=== PATIENT | male | born 1955 | race Caucasian/White ===

== ENCOUNTER → 2019-12-12 14:44 | Outpatient (BNVA) | payer SELFPAY | PROVIDERS: PCP Internal Medicine; Visit Provider Internal Medicine | DX: Z02.79 Encounter for issue of other medical certificate (principal) ==

== ENCOUNTER → 2020-12-25 14:58 | Outpatient (BNVA) | payer SELFPAY | PROVIDERS: PCP Internal Medicine; Visit Provider Physician Assistant Medical | DX: Z02.79 Encounter for issue of other medical certificate (principal) ==

== ENCOUNTER 2021-05-28 10:23 | Observation (INO) | payer OTHER, SELFPAY ==
--- NOTE | 2021-05-28 | ECG_ITS ---
Test Reason : chest pain Blood Pressure : / mmHG Vent. Rate : 067 BPM Atrial Rate : 326 BPM P-R Int : 000 ms QRS Dur : 084 ms QT Int : 408 ms P-R-T Axes : 090 -16 -02 degrees QTc Int : 431 ms Poor data quality Normal sinus rhythm Otherwise normal ECG When compared with ECG of 25-JUN-2001 20:31, No significant changes seen Referred By: Generic ED Physician Electronically Signed By:PEDRO ABERNATHY MD
--- NOTE | ~2021-05-28 | CT_ITS ---
EXAMINATION: CT ANGIOGRAM OF THE CHEST WITH AND WITHOUT CONTRAST (CT PULMONARY ANGIOGRAM FOR PE) CLINICAL INFORMATION: Reason for Exam elevated d dimer, cp COMPARISON: None TECHNIQUE: Prior to contrast administration, noncontrast localization images were obtained. Subsequently, multidetector volumetric imaging was performed from the thoracic inlet to below the diaphragms following the administration of 69 mL Omnipaque 350 intravenous contrast. No contrast reaction reported Sagittal, coronal, and MIP oblique sagittal reformatted images were obtained on the CT workstation, uploaded to PACS, and reviewed. This CT examination was performed using dose optimization techniques as appropriate, variously including the following: *Automated exposure control *Adjustment of mA and/or kV according to patient size (this includes techniques or standardized protocols for targeted exams where dose is matched to indication/reason for exam; i.e. extremities or head) *Use of iterative reconstruction technique Total exam dose-length product 282 mGy-cm FINDINGS: QUALITY OF STUDY/CONTRAST BOLUS: Satisfactory. PULMONARY ARTERIES: No central or segmental pulmonary emboli. THORACIC AORTA: No aneurysm or dissection. LUNG: No focal consolidation, nodules or masses. PLEURA: No pleural effusion or pneumothorax. MEDIASTINUM: Borderline cardiomegaly. No pericardial effusion. No hilar or mediastinal lymphadenopathy. No evidence of septal bowing or right heart strain. CHEST WALL/AXILLA: No axillary or internal mammary lymphadenopathy. OSSEOUS STRUCTURES: No acute or suspicious osseous abnormality. UPPER ABDOMEN: Unremarkable. No reflux of contrast into the hepatic veins to suggest elevated right heart pressures. CT/CT angio chest PE protocol IMPRESSION: No pulmonary embolus seen. VTE: negative
--- NOTE | ~2021-05-28 | XR_ITS ---
EXAMINATION: XR CHEST CLINICAL INFORMATION: Cough and shortness of breath COMPARISON: None TECHNIQUE: Frontal view of the chest was obtained. FINDINGS: The lungs are well expanded. There is no focal consolidation, edema, or effusion. No pneumothorax. The cardiomediastinal silhouette is within normal limits. No acute osseous abnormality. XR/XR chest 1V IMPRESSION: Clear lungs.
[2021-05-28 10:30] VITALS: BP 202/96; PULSE 73; RESP 18; TEMP 36.7; O2SAT 99; BMI 28.0
[2021-05-28 15:35] LABS: MANUAL DIFF FLAG NO
[2021-05-28 15:36] LABS: Basophils Percent Auto 0.5 % (0-2); Eosinophils Absolute Auto 0.1 X10*3/uL (0.0-0.4); Hematocrit 42.1 % (42.0-52.0); Hemoglobin 14.2 g/dl (14.0-18.0); Imm Gran Abs Auto 0.03 X10*3/uL (0.00-0.03); Imm Gran Pct Auto 0.4 % (0.0-0.4); Lymphocytes Absolute Auto 2.3 X10*3/uL (1.2-4.9); Mean Corpuscular HGB Conc 33.7 g/dl (31.0-36.0); Mean Corpuscular Volume 91.9 fL (80.0-98.0); Mean Platelet Volume 9.7 fL (9.4-12.4); Monocytes Absolute Auto 0.8 X10*3/uL (0.1-1.2); Monocytes Percent Auto 10.8 % (2-11); Neutrophils Absolute Auto 4.5 x10*3/uL (2.0-8.3); Neutrophils Percent Auto 58.3 % (45-73); Platelet Count 294 X10*3/uL (160-400); Red Blood Count 4.58 X10*6/uL (4.60-5.80); Red Cell Distribution Width 13.2 % (11.0-16.0); White Blood Count 7.8 X10*3/uL (4.8-10.8)
[2021-05-28 15:49] VITALS: BP 182/94; PULSE 71; RESP 16; TEMP 36.7; O2SAT 97
[2021-05-28 15:52] LABS: Influenza A Negative (Negative); Influenza B2 Negative (Negative)
[2021-05-28 15:55] LABS: Alanine Aminotransferase 27 U/L (0-40); Albumin Level 4.3 g/dL (3.5-5.0); Alkaline Phosphatase 93 U/L (39-117); Anion Gap 12 (12-20); Aspartate Amino Transferase 22 U/L (5-37); Bilirubin Direct 0.3 mg/dL (0.0-0.5); Bilirubin Total 0.9 mg/dL (0.0-1.0); Blood Urea Nitrogen 12 mg/dL (9-16); Calcium 9.6 mg/dL (8.4-10.2); Carbon Dioxide 26 mmol/L (22-29); Chloride 105 mmol/L (96-108); Creatinine Clr Calc Pharmacy 84.7; Estimated Glomerular Filt Rate > 60; Glucose Random 88 mg/dL (60-115); Potassium 4.5 mmol/L (3.3-5.1); Sodium 138 mmol/L (135-145); Total Protein 7.4 g/dL (6.5-8.0)
[2021-05-28 15:57] LABS: COVID-19 Test Negative (Negative); IDNOW Serial# 16C4AD1C
[2021-05-28 15:59] LABS: Troponin-I High Sensitivity 12.6 ng/L (<3.5-35.0)
[2021-05-28 16:00] LABS: B Type Natriuretic Peptide 26 pg/mL (<100)
--- NOTE | 2021-05-28 16:01 | ECG_ITS ---
Test Reason : CHEST PAIN Blood Pressure : / mmHG Vent. Rate : 064 BPM Atrial Rate : 064 BPM P-R Int : 196 ms QRS Dur : 086 ms QT Int : 416 ms P-R-T Axes : 051 -16 -05 degrees QTc Int : 429 ms Normal sinus rhythm Poor R wave progression most likely due to lead placement When compared with ECG of 28-MAY-2021 10:29, No significant changes seen Referred By: Leonie Allen Electronically Signed By:PEDOR ABERNATHY MD
[2021-05-28] MEDS: Aspirin 81 MG TAB.CHEW 324 MG PO (16:18)
--- NOTE | 2021-05-28 16:22 | ED.CHESTPAIN ---
HPI - Chest Pain General Chief Complaint: Chest Pain Stated Complaint: chest pains since wednesday Time Seen by Provider: 05/28/21 12:08 Source: patient Mode of arrival: ambulatory Limitations: no limitations History of Present Illness HPI narrative: 65 yo male with a history of hypertension here with reports of intermittent chest pain since Wednesday. Patient tells me he was out walking with his on Wednesday afternoon when he started to have some chest pressure. Patient tells me that when he rested the chest pressure got better. With the chest pressure he had fatigue and felt very tired. Patient tells me he felt well until Wednesday when he was working and he felt chest pressure again when he was lifting le[employer] material. Patient tells me since then the pain has improved but is happening more frequently. He denies any associated nausea, diaphoresis, shortness of breath. Patient does tell me that he has a dry cough but no fevers, chills, leg swelling or pain. No recent travel or sick contact. Patient denies any family history of coronary disease or blood clots. MD complaint: other (chest pressure) Onset (ago): day(s) Timing of current episode: episodic (now more constant) Prior episodes: Yes Onset: during exertion Pain location: substernal Pain radiation: none Quality: heaviness and other (pressure ) Treatment prior to arrival: none Related Data Allergies Allergy/AdvReac Type Severity Reaction Status Date / Time Unable to Assess Allergy Verified 05/28/21 12:09 Review of Systems Review of Systems: Yes all other systems are reviewed and are negative Constitutional: Constitutional: Reports no additional constitutional complaints, Denies body ache(s), Denies chills, Denies fever(s), Denies headache(s) and Denies weakness Eyes: Eyes: Reports no additional eye complaints and Denies change in vision ENT: Reports system reviewed and no additional complaints, except as documented, Denies dizziness, Denies headache(s), Denies nasal congestion, Denies nasal discharge and Denies neck pain Cardiovascular: Cardiovascular: Reports no additional cardiovascular complaints, Reports chest pain, Denies leg edema and Denies dyspnea Respiratory: Respiratory: Reports no additional respiratory complaints, Reports cough and Denies dyspnea Gastrointestinal: Gastrointestinal: Reports no additional gastrointestinal complaints, Denies abdominal pain, Denies diarrhea, Denies nausea and Denies vomiting Genitourinary: Genitourinary: Denies urinary incontinence Musculoskeletal: Musculoskeletal: Reports no additional musculoskeletal complaints, Denies back pain, Denies arthralgias, Denies joint swelling, Denies neck pain, Denies numbness and Denies tingling Integumentary/Breasts: Skin/Breast: Reports system reviewed and no additional complaints, except as docu and Denies rash Neurologic: Reports system reviewed and no additional complaints, except as documented, Denies Abnormal speech present, Denies dizziness, Denies headache(s), Denies numbness, Denies tingling and Denies weakness PMFSH Past Medical History Attestation statement: The following information was validated with the patient. Source: old records reviewed and nursing notes reviewed Medical History HTN (hypertension) Social History Social History (Updated 05/28/21 @ 16:52 by Leonie Allen NP) Alcohol intake: current Alcohol intake frequency: 0-2 drinks per day Alcohol type: beer Patient Tobacco Use Status: Never used Tobacco Use of substances other than those prescribed or required for medical reasons: No Advance Directives: No Advance Directives Information Provided: No Physical Exam Vital Signs: Vital Signs: Last Vital Signs Temp 98.1 F 05/28/21 15:49 Pulse 58 05/28/21 16:59 Resp 16 05/28/21 16:59 BP 150/80 H 05/28/21 16:59 Pulse Ox 99 05/28/21 16:59 BMI result Body Mass Index 28.0 Const: General: cooperative, healthy appearing, comfortable and no acute distress Orientation/consciousness: patient oriented x3 Limitations: no limitations HEENT: Head: Yes normal to inspection Ears: hearing grossly normal bilaterally General nose exam: Normal external nose present Face and sinus: Yes normal facial exam Mouth: Normal oral and palatal mucosa present Throat: Yes posterior oropharynx normal Eyes: General: appearance normal, both eyes and all related structures Pupils: Equal, round and reactive pupils present Neck: Neck: Yes normal visual inspection Chest: Chest palpation & inspection: normal inspection of the chest Resp: Effort & Inspection: normal respiratory effort Auscultation: clear to auscultation bilaterally Cardio: Rate: regular rate Rhythm: regular rhythm Peripheral pulses: Peripheral pulses 2+ throughout GI: Inspection: Yes normal to inspection Palpation (GI): Soft to palpation and nontender Auscultation: normal bowel sounds Back/Spine/Pelvis: Thoracic/Lumbar Spine: thoracic and lumbar spine normal to inspection Skin: General skin exam: no rashes or lesions noted Neuro: General: patient oriented x3, no focal motor deficits and normal sensation to monofilament Cranial nerves: Yes Equal, round and reactive pupils present Cognition (Neuro): normal cognition Speech: No Abnormal speech present Gait exam (Neuro): Normal gait present Motor exam (neuro): 5/5 motor strength present throughout Extrem: General: Yes normal to inspection, Yes no pedal edema and Yes no calf tenderness Course Course Course Narrative: 65 yo male here with complaints of intermittent exertional chest pain over the last few days with no associated symptoms. Will check labs, EKG, CXR, covid screen. Will give ASA, NTG Initially quite hypertensive but improved w/o intervention HEART score 3 1645-elevated d dimer. Will check CTA. Indeterminate troponin level. Plan to reassess. 1745-CTA negative for PE. Troponin will be drawn 1830. D/t exertional CP with elevated heart score will admit to medicine. Patient CP resolved at this time (did not require NTG). Call out to medicine to discuss. 1800-[id number] with Dr Rae who accepted patient. MDM - Chest Pain MDM Narrative Medical decision making narrative: Exertional chest pain acs, pe Medical Records Data Attestation: I reviewed the patient's medical records. Lab Data Attestation: I reviewed the patient's lab results. Result diagrams: 05/28/21 15:28 05/28/21 15:27 Labs: Lab Results 05/28/21 05/28/21 05/28/21 Range/Units 15:27 15:27 15:28 WBC 7.8 (4.8-10.8) X10*3/uL RBC 4.58 L (4.60-5.80) X10*6/uL Hgb 14.2 (14.0-18.0) g/dl Hct 42.1 (42.0-52.0) % MCV 91.9 (80.0-98.0) fL MCH 31.0 (27.0-33.0) pg MCHC 33.7 (31.0-36.0) g/dl RDW 13.2 (11.0-16.0) % Plt Count 294 (160-400) X10*3/uL MPV 9.7 (9.4-12.4) fL Immature Gran % (Auto) 0.4 (0.0-0.4) % Neut % (Auto) 58.3 (45-73) % Lymph % (Auto) 29.0 (20-40) % [place] % (Auto) 10.8 (2-11) % Eos % (Auto) 1.0 (0-4) % Baso % (Auto) 0.5 (0-2) % Lymph # (Auto) 2.3 (1.2-4.9) X10*3/uL [place] # (Auto) 0.8 (0.1-1.2) X10*3/uL Eos # (Auto) 0.1 (0.0-0.4) X10*3/uL Baso # (Auto) 0.0 (0.0-0.2) X10*3/uL Abs Immat Gran (auto) 0.03 (0.00-0.03) X10*3/uL Absolute Neuts (auto) 4.5 (2.0-8.3) x10*3/uL Absolute Nucleated RBC 0.000 (0.0-0.012) X10*3/uL Nucleated RBC % (auto) 0.0 (0.0-0.2) /100WBC D-Dimer High Sensitivty NG/ML Sodium 138 (135-145) mmol/L Potassium 4.5 (3.3-5.1) mmol/L Chloride 105 (96-108) mmol/L Carbon Dioxide 26 (22-29) mmol/L Anion Gap 12 (12-20) BUN 12 (9-16) mg/dL Creatinine 0.97 (0.5-1.4) mg/dL Estim Creat Clear Calc 84.7 Estimated GFR > 60 Random Glucose 88 (60-115) mg/dL Calcium 9.6 (8.4-10.2) mg/dL Total Bilirubin 0.9 (0.0-1.0) mg/dL Direct Bilirubin 0.3 (0.0-0.5) mg/dL AST 22 (5-37) U/L ALT 27 (0-40) U/L Alkaline Phosphatase 93 (39-117) U/L Troponin I High Sens 12.6 (<3.5-35.0) ng/L B-Natriuretic Peptide (<100) pg/mL Total Protein 7.4 (6.5-8.0) g/dL Albumin 4.3 (3.5-5.0) g/dL COVID-19 ([facility]TAR) (Negative) COVID-19 Clin Com Influenza Type A (ELEANOR) (Negative) Influenza Type B (ELEANOR) (Negative) Influenza A & B Note 05/28/21 05/28/21 05/28/21 Range/Units 15:28 15:28 15:28 WBC (4.8-10.8) X10*3/uL RBC (4.60-5.80) X10*6/uL Hgb (14.0-18.0) g/dl Hct (42.0-52.0) % MCV (80.0-98.0) fL MCH (27.0-33.0) pg MCHC (31.0-36.0) g/dl RDW (11.0-16.0) % Plt Count (160-400) X10*3/uL MPV (9.4-12.4) fL Immature Gran % (Auto) (0.0-0.4) % Neut % (Auto) (45-73) % Lymph % (Auto) (20-40) % [place] % (Auto) (2-11) % Eos % (Auto) (0-4) % Baso % (Auto) (0-2) % Lymph # (Auto) (1.2-4.9) X10*3/uL [place] # (Auto) (0.1-1.2) X10*3/uL Eos # (Auto) (0.0-0.4) X10*3/uL Baso # (Auto) (0.0-0.2) X10*3/uL Abs Immat Gran (auto) (0.00-0.03) X10*3/uL Absolute Neuts (auto) (2.0-8.3) x10*3/uL Absolute Nucleated RBC (0.0-0.012) X10*3/uL Nucleated RBC % (auto) (0.0-0.2) /100WBC D-Dimer High Sensitivty NG/ML Sodium (135-145) mmol/L Potassium (3.3-5.1) mmol/L Chloride (96-108) mmol/L Carbon Dioxide (22-29) mmol/L Anion Gap (12-20) BUN (9-16) mg/dL Creatinine (0.5-1.4) mg/dL Estim Creat Clear Calc Estimated GFR Random Glucose (60-115) mg/dL Calcium (8.4-10.2) mg/dL Total Bilirubin (0.0-1.0) mg/dL Direct Bilirubin (0.0-0.5) mg/dL AST (5-37) U/L ALT (0-40) U/L Alkaline Phosphatase (39-117) U/L Troponin I High Sens (<3.5-35.0) ng/L B-Natriuretic Peptide 26 (<100) pg/mL Total Protein (6.5-8.0) g/dL Albumin (3.5-5.0) g/dL COVID-19 ([facility]TAR) Negative (Negative) COVID-19 Clin Com See Note Influenza Type A (ELEANOR) Negative (Negative) Influenza Type B (ELEANOR) Negative (Negative) Influenza A & B Note See Note 05/28/21 Range/Units 16:12 WBC (4.8-10.8) X10*3/uL RBC (4.60-5.80) X10*6/uL Hgb (14.0-18.0) g/dl Hct (42.0-52.0) % MCV (80.0-98.0) fL MCH (27.0-33.0) pg MCHC (31.0-36.0) g/dl RDW (11.0-16.0) % Plt Count (160-400) X10*3/uL MPV (9.4-12.4) fL Immature Gran % (Auto) (0.0-0.4) % Neut % (Auto) (45-73) % Lymph % (Auto) (20-40) % [place] % (Auto) (2-11) % Eos % (Auto) (0-4) % Baso % (Auto) (0-2) % Lymph # (Auto) (1.2-4.9) X10*3/uL [place] # (Auto) (0.1-1.2) X10*3/uL Eos # (Auto) (0.0-0.4) X10*3/uL Baso # (Auto) (0.0-0.2) X10*3/uL Abs Immat Gran (auto) (0.00-0.03) X10*3/uL Absolute Neuts (auto) (2.0-8.3) x10*3/uL Absolute Nucleated RBC (0.0-0.012) X10*3/uL Nucleated RBC % (auto) (0.0-0.2) /100WBC D-Dimer High Sensitivty 196 NG/ML Sodium (135-145) mmol/L Potassium (3.3-5.1) mmol/L Chloride (96-108) mmol/L Carbon Dioxide (22-29) mmol/L Anion Gap (12-20) BUN (9-16) mg/dL Creatinine (0.5-1.4) mg/dL Estim Creat Clear Calc Estimated GFR Random Glucose (60-115) mg/dL Calcium (8.4-10.2) mg/dL Total Bilirubin (0.0-1.0) mg/dL Direct Bilirubin (0.0-0.5) mg/dL AST (5-37) U/L ALT (0-40) U/L Alkaline Phosphatase (39-117) U/L Troponin I High Sens (<3.5-35.0) ng/L B-Natriuretic Peptide (<100) pg/mL Total Protein (6.5-8.0) g/dL Albumin (3.5-5.0) g/dL COVID-19 ([facility]TAR) (Negative) COVID-19 Clin Com Influenza Type A (ELEANOR) (Negative) Influenza Type B (ELEANOR) (Negative) Influenza A & B Note Imaging Data Chest x-ray: Attestation: I personally reviewed and interpreted this imaging study as follows: Radiologist's impression: EXAMINATION: XR CHEST CLINICAL INFORMATION: Cough and shortness of breath COMPARISON: None TECHNIQUE: Frontal view of the chest was obtained. FINDINGS: The lungs are well expanded. There is no focal consolidation, edema, or effusion. No pneumothorax. The cardiomediastinal silhouette is within normal limits. No acute osseous abnormality. XR/XR chest 1V IMPRESSION: Clear lungs. ? CT scan - chest: Attestation: I personally reviewed and interpreted this imaging study as follows: Radiologist's impression: FINDINGS: QUALITY OF STUDY/CONTRAST BOLUS: Satisfactory. PULMONARY ARTERIES: No central or segmental pulmonary emboli.? THORACIC AORTA: No aneurysm or dissection. LUNG: No focal consolidation, nodules or masses. PLEURA: No pleural effusion or pneumothorax. MEDIASTINUM: Borderline cardiomegaly. No pericardial effusion. No hilar or mediastinal lymphadenopathy.? No evidence of septal bowing or right heart strain. CHEST WALL/AXILLA: No axillary or internal mammary lymphadenopathy. OSSEOUS STRUCTURES: No acute or suspicious osseous abnormality.? UPPER ABDOMEN: Unremarkable.? No reflux of contrast into the hepatic veins to suggest elevated right heart pressures. CT/CT angio chest PE protocol IMPRESSION: No pulmonary embolus seen. ? VTE: negative ECG Data ECG #1: Attestation: I personally reviewed and interpreted this ECG as follows: ECG interpretation date: 05/28/21 ECG interpretation time: 16:17 Interpretation: Normal sinus rhythm with a rate of 64, normal AL, normal QRS, normal QT Discharge Plan Discharge Clinical Impression: Chest pain Patient Disposition: Admitted As Inpatient
[2021-05-28 16:26] LABS: D Dimer High Sensitivity 196 NG/ML
[2021-05-28 16:59] VITALS: BP 150/80; PULSE 58; RESP 16; O2SAT 99
[2021-05-28] MEDS: iohexoL 350 MG/ML 100 ML INFUS..BTL IV (17:17)
--- NOTE | 2021-05-28 18:10 | PHA.MEDREC ---
Pharmacy Consult ? Medication Reconciliation Pharmacy has completed the medication reconciliation.
[2021-05-28 18:48] LABS: Troponin-I High Sensitivity 13.7 ng/L (<3.5-35.0)
--- NOTE | 2021-05-28 19:02 | PM.IMHP ---
History of Present Illness Date of Service: 05/28/21 Chief Complaint: Exertional chest pain 65-year-old male with significant past medical history for hypertension alone on amlodipine and no significant past medical history for cardiac disease presents with exertional chest pain worsening over the last week. He clearly describes walking short distance developing retrosternal chest pain that resolved with rest. This was approximately 3 days ago. 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 Today he had a similar episode with exertion and felt it was time to seek attention. In the emergency room initial workup was unremarkable including troponin EKG and chest. At this point in time he will be admitted for further workup and rule out protocol Review of Systems Review of Systems: Admits to exertional chest pain Denies shortness of breath Denies nausea vomiting diarrhea PMFSH Medical History HTN (hypertension) Social History Alcohol intake: current Alcohol intake frequency: 0-2 drinks per day Alcohol type: beer Patient Tobacco Use Status: Never used Tobacco Use of substances other than those prescribed or required for medical reasons: No Advance Directives: No Advance Directives Information Provided: No Meds Allergies Allergy/AdvReac Type Severity Reaction Status Date / Time Unable to Assess Allergy Verified 05/28/21 12:09 Active Medications: Current Medications Enoxaparin Sodium (Enoxaparin Sodium 40 Mg/0.4 Ml Syringe) 40 mg SUBCUT Q24H WOO Nitroglycerin (Nitroglycerin 0.4 Mg Tab.Subl) 0.4 mg SUBLINGUAL [id number] PRN PRN Reason: Chest Pain Pharmacy Consult (Consult Rx Perform Med Rec) 1 each MISCELLANE ONCE PRN PRN Reason: Consult order Sodium Chloride (0.9 % Sodium Chloride Flush 3 Ml Syringe) 3 ml IVFLUSH QSHIFT [facility] Home Medications Medication Instructions Recorded Confirmed Last Taken Type amlodipine 5 mg tablet 5 mg PO DAILY 05/28/21 05/28/21 05/28/21 History Physical Exam Vital Signs and Narrative: Vital Signs: Last Vital Signs Temp 98.1 F 05/28/21 15:49 Pulse 58 05/28/21 16:59 Resp 16 05/28/21 16:59 BP 150/80 H 05/28/21 16:59 Pulse Ox 99 05/28/21 16:59 BMI result Body Mass Index 28.0 Const: Other: Awake alert oriented x3 no acute distress Resp: Other: Clear to auscultation bilateral. No rales rhonchi or wheezes Cardio: Other: No S4; positive S1-S2; no S3 murmurs rubs or gallops GI: Other: Soft nontender nondistended normoactive bowel sounds Extrem: Other: No edema bilaterally Results Labs CBC and Chem 7: 05/28/21 15:28 05/28/21 15:27 Labs: Laboratory Results - last 24 hr 05/28/21 05/28/21 05/28/21 15:27 15:27 15:28 MCV 91.9 MCH 31.0 MCHC 33.7 RDW 13.2 Plt Count 294 MPV 9.7 Immature Gran % (Auto) 0.4 Neut % (Auto) 58.3 Lymph % (Auto) 29.0 [place] % (Auto) 10.8 Eos % (Auto) 1.0 Baso % (Auto) 0.5 Lymph # (Auto) 2.3 [place] # (Auto) 0.8 Eos # (Auto) 0.1 Baso # (Auto) 0.0 Abs Immat Gran (auto) 0.03 Absolute Neuts (auto) 4.5 Absolute Nucleated RBC 0.000 Nucleated RBC % (auto) 0.0 D-Dimer High Sensitivty Anion Gap 12 Estim Creat Clear Calc 84.7 Estimated GFR > 60 Random Glucose 88 Calcium 9.6 Total Bilirubin 0.9 Direct Bilirubin 0.3 AST 22 ALT 27 Alkaline Phosphatase 93 Troponin I High Sens 12.6 B-Natriuretic Peptide Total Protein 7.4 Albumin 4.3 COVID-19 ([facility]TAR) COVID-19 Clin Com Influenza Type A (ELEANOR) Influenza Type B (ELEANOR) Influenza A & B Note 05/28/21 05/28/21 05/28/21 15:28 15:28 15:28 MCV MCH MCHC RDW Plt Count MPV Immature Gran % (Auto) Neut % (Auto) Lymph % (Auto) [place] % (Auto) Eos % (Auto) Baso % (Auto) Lymph # (Auto) [place] # (Auto) Eos # (Auto) Baso # (Auto) Abs Immat Gran (auto) Absolute Neuts (auto) Absolute Nucleated RBC Nucleated RBC % (auto) D-Dimer High Sensitivty Anion Gap Estim Creat Clear Calc Estimated GFR Random Glucose Calcium Total Bilirubin Direct Bilirubin AST ALT Alkaline Phosphatase Troponin I High Sens B-Natriuretic Peptide 26 Total Protein Albumin COVID-19 (AVTAR) Negative COVID-19 Clin Com See Note Influenza Type A (ELEANOR) Negative Influenza Type B (ELEANOR) Negative Influenza A & B Note See Note 05/28/21 05/28/21 16:12 18:22 MCV MCH MCHC RDW Plt Count MPV Immature Gran % (Auto) Neut % (Auto) Lymph % (Auto) [place] % (Auto) Eos % (Auto) Baso % (Auto) Lymph # (Auto) [place] # (Auto) Eos # (Auto) Baso # (Auto) Abs Immat Gran (auto) Absolute Neuts (auto) Absolute Nucleated RBC Nucleated RBC % (auto) D-Dimer High Sensitivty 196 Anion Gap Estim Creat Clear Calc Estimated GFR Random Glucose Calcium Total Bilirubin Direct Bilirubin AST ALT Alkaline Phosphatase Troponin I High Sens 13.7 B-Natriuretic Peptide Total Protein Albumin COVID-19 (AVTAR) COVID-19 Clin Com Influenza Type A (ELEANOR) Influenza Type B (ELEANOR) Influenza A & B Note Imaging Radiologist's Impressions: Impressions Chest X-Ray 05/28/21 12:30 IMPRESSION: Clear lungs. Chest CTA 05/28/21 17:21 IMPRESSION: No pulmonary embolus seen. VTE: negative Assessment and Plan (1) Chest pain: Status: Acute (2) Hypertension: Status: Acute Plan 65-year-old male presents with exertional chest pain in the back drop of high known hypertension. His risk factors are hypertension as he does not smoke drinks moderately and has no family history of coronary artery disease. 1. Exertional chest pain -admit to telemetry to rule out protocol -2D echo in the morning -cardiology consult -trend troponins 2. Hypertension -continue amlodipine -adjust as indicated -follow renals/divalents Full Code Lovenox A will likely require for 1-2 midnights for cardiac workup; future stay dictated by clinical results Quality Stroke Does the patient have a stroke diagnosis?: No VTE Prior VTE?: No VTE Risk Level:: Medical - moderate - high VTE Device Contraindication: Treatment Not Indicated VTE Drug Contraindication: N/A - Med Ordered
[2021-05-28 20:14] VITALS: BP 128/74; PULSE 57; RESP 18; TEMP 36.7; O2SAT 97
[2021-05-28] MEDS: Enoxaparin Sodium 40 MG/0.4 ML SYRINGE SUBCUT (20:40)
[2021-05-28 22:00] VITALS: BP 144/74; PULSE 55; RESP 16; TEMP 36.8; O2SAT 98
--- NOTE | 2021-05-28 22:56 | MHC.CM.PN ---
REYES 05/28. A&Ox3. HCP completed. HCP/ Shean Ta ([phone]). Vet. [facility]. PCP [facility]. [facility] in [place]. Vax x2 Pfizer. Boosted/Moderna. Employed. Lives with . No DME/services. D/C plan: Home without services. Transportation by . CM to follow for d/c needs.
[2021-05-28] MEDS: 0.9 % Sodium Chloride Flush 3 ML SYRINGE IVFLUSH (23:57)
--- NOTE | 2021-05-29 | CA_ITS ---
Acquisition Time: 2021-05-29 09:21:41 Total Exercise Time: 00:04:54 Test Indications: Chest Pain Medications: AMLODIPINE Protocol: SUDARSHAN Max HR: 150 BPM 95% of Pred: 157 BPM Max BP: 160/090 mmHG Max Work Load: 6.8 METS Exercise stress test with exercise 4 min 54 sec, achieving 89% MPHR, with 8/10 mid chest pain with moderate shortness of breath, without arrythmia, with normotensive response to exercise, with nonspecific ST findings at baseline, with [address] depression in V2 , aVL at 14 sec of recovery, then at 3 min recovery there is downsloping ST segements starting inferiorly and V3-V6 which becomes more prominent before finally returnng back to baseline. His chest discomfort gradually improved and resolved with rest. Test reviewed with Dr Masterson Referred By: Addy Masterson Overread By: YUDITH SUAREZ
[2021-05-29 00:11] VITALS: BP 145/89; PULSE 56; RESP 12; TEMP 36.6; O2SAT 97
[2021-05-29 02:12] VITALS: BP 135/77; PULSE 55; RESP 14; O2SAT 97
[2021-05-29 06:37] VITALS: BP 136/78; PULSE 50; RESP 12; O2SAT 98
[2021-05-29 07:05] LABS: MANUAL DIFF FLAG NO
[2021-05-29 07:07] LABS: Basophils Absolute Auto 0.1 X10*3/uL (0.0-0.2); Basophils Percent Auto 0.8 % (0-2); Eosinophils Absolute Auto 0.1 X10*3/uL (0.0-0.4); Eosinophils Percent Auto 1.3 % (0-4); Hematocrit 40.3 % (42.0-52.0); Hemoglobin 13.9 g/dl (14.0-18.0); Imm Gran Abs Auto 0.02 X10*3/uL (0.00-0.03); Imm Gran Pct Auto 0.3 % (0.0-0.4); Lymphocytes Absolute Auto 1.7 X10*3/uL (1.2-4.9); Lymphocytes Percent Auto 27.7 % (20-40); Mean Corpuscular HGB Conc 34.5 g/dl (31.0-36.0); Mean Corpuscular Volume 92.9 fL (80.0-98.0); Mean Platelet Volume 9.6 fL (9.4-12.4); Monocytes Absolute Auto 0.8 X10*3/uL (0.1-1.2); Monocytes Percent Auto 13.1 % (2-11); Neutrophils Absolute Auto 3.5 x10*3/uL (2.0-8.3); Neutrophils Percent Auto 56.8 % (45-73); Platelet Count 269 X10*3/uL (160-400); Red Blood Count 4.34 X10*6/uL (4.60-5.80); Red Cell Distribution Width 13.2 % (11.0-16.0); White Blood Count 6.2 X10*3/uL (4.8-10.8)
[2021-05-29 07:18] VITALS: BP 166/80; PULSE 57; RESP 12; TEMP 37; O2SAT 100
[2021-05-29 07:31] LABS: Alanine Aminotransferase 21 U/L (0-40); Albumin Level 3.9 g/dL (3.5-5.0); Alkaline Phosphatase 83 U/L (39-117); Anion Gap 12 (12-20); Aspartate Amino Transferase 19 U/L (5-37); Blood Urea Nitrogen 14 mg/dL (9-16); Calcium 9.2 mg/dL (8.4-10.2); Carbon Dioxide 25 mmol/L (22-29); Chloride 105 mmol/L (96-108); Creatinine Clr Calc Pharmacy 79.8; Estimated Glomerular Filt Rate > 60; Glucose Fasting 87 mg/dL (60-99); Potassium 4.2 mmol/L (3.3-5.1); Sodium 138 mmol/L (135-145); Total Protein 6.7 g/dL (6.5-8.0)
--- NOTE | 2021-05-29 07:34 | PC.NURSE ---
denies all sx. states he wants to go home because its too loud in the ed and too hard to sleep. nsr on ryne. skin pwd.
[2021-05-29 07:37] LABS: Troponin-I High Sensitivity 10.2 ng/L (<3.5-35.0)
--- NOTE | 2021-05-29 08:59 | PM.CNCAR ---
History of Present Illness History of Present Illness Date of Service: 05/29/21 Requesting physician: Micky Bruce Chief complaint: Chest Pain Narrative: I was consulted to see the patient today for symptoms of exertional chest pain. He is a pleasant and very active 65-year-old male who works in labor intensive job with prior history of hypertension on amlodipine 5 mg. Generally blood pressure at home is borderline controlled as per him. However not generally an issue. He goes out for walks with his without any issues. On Wednesday he went out to walk to the [facility] and when he walked 1 length he felt tired. He felt that this was due to may be over work. Following that on Wednesday he went to work and was loading a truck and felt retrosternal chest pressure associated with weakness in his legs. There was no diaphoresis, shortness of breath, lightheadedness, syncope. He then went into the office and rested and the symptoms resolved within 15 minutes. He then went on to work on Wednesday but no exertional activity was done on that day. On Wednesday again he was loading the truck and he felt that similar chest pressure but much more intense in severity associated weakness and shaking of his arms. He was very concerned and came to the emergency room. Initial EKG was negative. He said he was then in the waiting room for few hours and subsequently was seen after few hours and was given aspirin after an hour of aspirin his symptoms resolved. However the most intense symptoms lasted for about 45 minutes. His serial EKGs are negative. His troponins are flat Review of Systems Constitutional: Constitutional: Reports no additional constitutional complaints Eyes: Eyes: Reports no additional eye complaints Cardiovascular: Cardiovascular: Reports chest pain with activity Respiratory: Respiratory: Reports no additional respiratory complaints Gastrointestinal: Gastrointestinal: Reports no additional gastrointestinal complaints Genitourinary: Genitourinary: Reports no additional male genitourinary complaints Musculoskeletal: Musculoskeletal: Reports no additional musculoskeletal complaints Integumentary/Breasts: Skin/Breast: Reports system reviewed and no additional complaints, except as docu Neurologic: Reports system reviewed and no additional complaints, except as documented Psychiatric: Psychiatric: Reports no additional psychiatric complaints Endocrine: Endocrine: Reports no additional endocrine complaints Hematologic/Lymphatic: Hematologic/Lymphatic: Reports no additional hematologic/lymphatic complaints Allergic/Immunologic: Allergic/Immunologic: Reports no additional allergic/immunologic complaints [facility] Past Medical History Medical History HTN (hypertension) Social History Social History Alcohol intake: current Alcohol intake frequency: 0-2 drinks per day Alcohol type: beer Patient Tobacco Use Status: Never used Tobacco Use of substances other than those prescribed or required for medical reasons: No Advance Directives: Yes Advance Directives Information Provided: No Advance Directives on File: Yes Advance Directives Date on File: 05/29/21 service: Yes Current occupational status: employed Meds Allergies Allergy/AdvReac Type Severity Reaction Status Date / Time Unable to Assess Allergy Verified 05/28/21 12:09 Active Medications: Current Medications Amlodipine Besylate (Amlodipine Besylate 5 Mg Tablet) 5 mg PO DAILY [facility]; Protocol Enoxaparin Sodium (Enoxaparin Sodium 40 Mg/0.4 Ml Syringe) 40 mg SUBCUT Q24H [facility] Last Admin: 05/28/21 20:40 Dose: 40 mg Documented by: Nitroglycerin (Nitroglycerin 0.4 Mg Tab.Subl) 0.4 mg SUBLINGUAL [id number] PRN PRN Reason: Chest Pain Pharmacy Consult (Consult Rx Perform Med Rec) 1 each MISCELLANE ONCE PRN PRN Reason: Consult order Sodium Chloride (0.9 % Sodium Chloride Flush 3 Ml Syringe) 3 ml IVFLUSH QSHIFT [facility] Last Admin: 05/28/21 23:57 Dose: 3 ml Documented by: Home Medications Medication Instructions Recorded Confirmed Last Taken Type amlodipine 5 mg tablet 5 mg PO DAILY 05/28/21 05/28/21 05/28/21 History Physical Exam Vital Signs: Vital Signs: Last Vital Signs Temp 98.6 F 05/29/21 07:18 Pulse 57 05/29/21 07:18 Resp 12 05/29/21 07:18 BP 166/80 H 05/29/21 07:18 Pulse Ox 100 05/29/21 07:18 BMI result Body Mass Index 28.0 Const: General: cooperative, comfortable, no acute distress, well developed, alert, awake and anxious Nutritional Appearance: average body habitus and well nourished Orientation/consciousness: patient oriented x3 Limitations: no limitations HEENT: Head: Yes normocephalic and Yes atraumatic Neck: Neck: Yes trachea midline, Yes supple and Yes no JVD Chest: Chest palpation & inspection: normal inspection of the chest Resp: Effort & Inspection: normal respiratory effort Auscultation: clear to auscultation bilaterally Cardio: Jugular venous distension: no JVD Palpation: normal PMI Rate: regular rate Rhythm: regular rhythm Heart sounds: S1 normal heart sound present, S2 normal heart sound present, no click, no gallops and no murmurs GI: Auscultation: normal bowel sounds Skin: General skin exam: no rashes or lesions noted Neuro: General: patient oriented x3 and no focal motor deficits Extrem: General: Yes no clubbing, cyanosis or edema Psych: Appearance: grossly normal Affect: Anxious affect present Objective Labs and Meds Result diagrams: 05/29/21 06:58 05/29/21 06:58 Lab results: Laboratory Results - last 24 hr 05/28/21 05/28/21 05/28/21 15:27 15:27 15:28 WBC 7.8 RBC 4.58 L Hgb 14.2 Hct 42.1 MCV 91.9 MCH 31.0 MCHC 33.7 RDW 13.2 Plt Count 294 MPV 9.7 Immature Gran % (Auto) 0.4 Neut % (Auto) 58.3 Lymph % (Auto) 29.0 [place] % (Auto) 10.8 Eos % (Auto) 1.0 Baso % (Auto) 0.5 Lymph # (Auto) 2.3 [place] # (Auto) 0.8 Eos # (Auto) 0.1 Baso # (Auto) 0.0 Abs Immat Gran (auto) 0.03 Absolute Neuts (auto) 4.5 Absolute Nucleated RBC 0.000 Nucleated RBC % (auto) 0.0 D-Dimer High Sensitivty Sodium 138 Potassium 4.5 Chloride 105 Carbon Dioxide 26 Anion Gap 12 BUN 12 Creatinine 0.97 Estim Creat Clear Calc 84.7 Estimated GFR > 60 Random Glucose 88 Fasting Glucose Calcium 9.6 Total Bilirubin 0.9 Direct Bilirubin 0.3 AST 22 ALT 27 Alkaline Phosphatase 93 Troponin I High Sens 12.6 B-Natriuretic Peptide Total Protein 7.4 Albumin 4.3 COVID-19 (AVTAR) COVID-19 Clin Com Influenza Type A (ELEANOR) Influenza Type B (ELEANOR) Influenza A & B Note 05/28/21 05/28/21 05/28/21 15:28 15:28 15:28 WBC RBC Hgb Hct MCV MCH MCHC RDW Plt Count MPV Immature Gran % (Auto) Neut % (Auto) Lymph % (Auto) [place] % (Auto) Eos % (Auto) Baso % (Auto) Lymph # (Auto) [place] # (Auto) Eos # (Auto) Baso # (Auto) Abs Immat Gran (auto) Absolute Neuts (auto) Absolute Nucleated RBC Nucleated RBC % (auto) D-Dimer High Sensitivty Sodium Potassium Chloride Carbon Dioxide Anion Gap BUN Creatinine Estim Creat Clear Calc Estimated GFR Random Glucose Fasting Glucose Calcium Total Bilirubin Direct Bilirubin AST ALT Alkaline Phosphatase Troponin I High Sens B-Natriuretic Peptide 26 Total Protein Albumin COVID-19 (AVTAR) Negative COVID-19 Clin Com See Note Influenza Type A (ELEANOR) Negative Influenza Type B (ELEANOR) Negative Influenza A & B Note See Note 05/28/21 05/28/21 05/29/21 16:12 18:22 06:58 WBC 6.2 RBC 4.34 L Hgb 13.9 L Hct 40.3 L MCV 92.9 MCH 32.0 MCHC 34.5 RDW 13.2 Plt Count 269 MPV 9.6 Immature Gran % (Auto) 0.3 Neut % (Auto) 56.8 Lymph % (Auto) 27.7 [place] % (Auto) 13.1 H Eos % (Auto) 1.3 Baso % (Auto) 0.8 Lymph # (Auto) 1.7 [place] # (Auto) 0.8 Eos # (Auto) 0.1 Baso # (Auto) 0.1 Abs Immat Gran (auto) 0.02 Absolute Neuts (auto) 3.5 Absolute Nucleated RBC 0.000 Nucleated RBC % (auto) 0.0 D-Dimer High Sensitivty 196 Sodium Potassium Chloride Carbon Dioxide Anion Gap BUN Creatinine Estim Creat Clear Calc Estimated GFR Random Glucose Fasting Glucose Calcium Total Bilirubin Direct Bilirubin AST ALT Alkaline Phosphatase Troponin I High Sens 13.7 B-Natriuretic Peptide Total Protein Albumin COVID-19 (AVTAR) COVID-19 Clin Com Influenza Type A (ELEANOR) Influenza Type B (ELEANOR) Influenza A & B Note 05/29/21 05/29/21 06:58 06:58 WBC RBC Hgb Hct MCV MCH MCHC RDW Plt Count MPV Immature Gran % (Auto) Neut % (Auto) Lymph % (Auto) [place] % (Auto) Eos % (Auto) Baso % (Auto) Lymph # (Auto) [place] # (Auto) Eos # (Auto) Baso # (Auto) Abs Immat Gran (auto) Absolute Neuts (auto) Absolute Nucleated RBC Nucleated RBC % (auto) D-Dimer High Sensitivty Sodium 138 Potassium 4.2 Chloride 105 Carbon Dioxide 25 Anion Gap 12 BUN 14 Creatinine 1.03 Estim Creat Clear Calc 79.8 Estimated GFR > 60 Random Glucose Fasting Glucose 87 Calcium 9.2 Total Bilirubin 1.0 Direct Bilirubin AST 19 ALT 21 Alkaline Phosphatase 83 Troponin I High Sens 10.2 B-Natriuretic Peptide Total Protein 6.7 Albumin 3.9 COVID-19 (AVTAR) COVID-19 Clin Com Influenza Type A (ELEANOR) Influenza Type B (ELEANOR) Influenza A & B Note Imaging Radiologist's impression: Impressions Chest X-Ray 05/28/21 12:30 IMPRESSION: Clear lungs. Chest CTA 05/28/21 17:21 IMPRESSION: No pulmonary embolus seen. VTE: negative Assessment and Plan (1) Exertional chest pain: Status: Acute recent onset exertional chest pain in middle-aged man with prior risk factor of hypertension with borderline uncontrolled blood pressure at this point in time. He has negative EKG and negative troponin that makes him low risk for acute coronary syndrome. Also symptoms he is still very prolonged with negative troponins which makes obstructive CAD low likelihood although his symptoms are very concerning and will suggest him to undergo treadmill stress test today. This stress test is negative, likelihood of obstructive coronary artery disease extremely low. Would suggest him then aggressive control blood pressure and up titration of his amlodipine to 10 mg daily. Advised him closely to monitor his blood pressure at home. The stress test is positive will require cardiac catheterization. This was discussed with him in details. He understands and agrees. Procedures Date of Service Date of Service: 05/29/21
--- NOTE | 2021-05-29 10:09 | PM.EVENT ---
Event Note Date of Service: 05/29/21 Event Note: Patient underwent stress test which was abnormal, developed significant chest pain at 5 minutes into exercise and had EKG changes suggestive ischemia and recovery. No significant hypertensive blood pressure response. Will need cardiac catheterization. Was discussed with patient before and will make arrangement. Start aspirin, high-intensity statin therapy and metoprolol. Would hold off on IV heparin unless he develops recurrent chest pain.
[2021-05-29 10:30] VITALS: BP 161/88; PULSE 65; RESP 18; TEMP 36.9; O2SAT 95
[2021-05-29] MEDS: amLODIPine Besylate 5 MG TABLET PO (10:31)
--- NOTE | 2021-05-29 10:37 | PC.NURSE ---
Pt reports that he had CP during exertion during stress test. Is glad he didn't leave. NSR on monitor. no complaints at this time. skin pwd. unlabroed resp.
--- NOTE | 2021-05-29 11:21 | MHC.CM.PN ---
Received notification from Dr Rae that patient will be transferred to [facility] for cardiac cath. Continue to monitor for d/c needs.
[2021-05-29 11:30] VITALS: BP 122/74; PULSE 60; RESP 18; O2SAT 96
--- NOTE | 2021-05-29 11:31 | PC.NURSE ---
Pt denies CP, skin pwd. aware of plan for transfer [place] [facility]. awaits details of when.
[2021-05-29] MEDS: Metoprolol Tartrate 25 MG TABLET PO (11:40)
[2021-05-29] MEDS: Atorvastatin Calcium 80 MG TABLET PO (11:40)
[2021-05-29] MEDS: Aspirin Enteric Coated 81 MG TABLET.DR PO (11:41)
--- NOTE | 2021-05-29 12:06 | P.DS_ITS ---
DS: Providers Provider Date of Service: 05/29/21 Date of admission: 05/28/21 18:02 Date of discharge: 05/29/21 Primary care physician: MARCE Walton Consults: 05/28/21 19:00 Consult to Cardiology Routine Consulting Provider: Addy Masterson Reason for consultation: Exertional CP DS: Diagnosis Discharge Diagnosis (1) Exertional chest pain: Status: Acute DS: Summary Hospital Course Hospital Course: 65-year-old male with medical history significant for poorly controlled hypertension presents with multiple episodes of exertional chest pain over the last 2 weeks. He adequately describes walking short distance and developing retrosternal chest pain without radiation or associated symptoms; this pain resolved with 15-20 minutes of rest. Duration of his pain he notes 15-20 minutes. This scenario repeated itself multiple times and on the day of admission he was encouraged by his to seek treatment. On admission, initial troponin was flat and EKG was without significant changes. Risk factors were assessed; no family history of cardiac disease nonsmoker; social drinker no illicit drug use. Only risk factor remains poorly controlled hypertension. On 05/29/2021 patient underwent ETT and developed chest pain after 5 minutes. During recovery he developed more pronounced lateral ST T wave changes. He was seen by Cardiology; decision was made to transfer to [facility] for cardiac catheterization. Aside from stress test, he has been pain free. He has been started on low-dose aspirin, high-dose statin, beta-alisha. In the absence of pain at rest, he will not be started on heparin unless status changes. At this point in time he is medically acceptable for transfer to [facility] for catheterization. All his questions were answered with his Time Spent with Patient Time attestation: Total time spent providing and/or coordinating discharge services: Discharge coordination time: Greater than 30 minutes Quality: Safe Use of Opioids Does Pt have an Active Cancer Diagnosis on the Problem List?: No Quality: Stroke Does the patient have a stroke diagnosis?: No Physical Exam Vital Signs: Vital Signs: Last Vital Signs Temp 98.5 F 05/29/21 10:30 Pulse 60 05/29/21 11:30 Resp 18 05/29/21 11:30 BP 122/74 05/29/21 11:30 Pulse Ox 96 05/29/21 11:30 BMI result Body Mass Index 28.0 Const: Other: Awake alert oriented x3 no acute distress Resp: Other: Clear to auscultation bilateral. No rales rhonchi or wheezes Cardio: Other: No S4; positive S1-S2; no S3 murmurs rubs or gallops GI: Other: Soft nontender nondistended normoactive bowel sounds Extrem: Other: No edema bilaterally DS: Data Data Completed and Pending Labs on day of discharge: Laboratory Results - last 24 hr 05/28/21 05/28/21 05/28/21 15:27 15:27 15:28 WBC 7.8 RBC 4.58 L Hgb 14.2 Hct 42.1 MCV 91.9 MCH 31.0 MCHC 33.7 RDW 13.2 Plt Count 294 MPV 9.7 Immature Gran % (Auto) 0.4 Neut % (Auto) 58.3 Lymph % (Auto) 29.0 [place] % (Auto) 10.8 Eos % (Auto) 1.0 Baso % (Auto) 0.5 Lymph # (Auto) 2.3 [place] # (Auto) 0.8 Eos # (Auto) 0.1 Baso # (Auto) 0.0 Abs Immat Gran (auto) 0.03 Absolute Neuts (auto) 4.5 Absolute Nucleated RBC 0.000 Nucleated RBC % (auto) 0.0 D-Dimer High Sensitivty Sodium 138 Potassium 4.5 Chloride 105 Carbon Dioxide 26 Anion Gap 12 BUN 12 Creatinine 0.97 Estim Creat Clear Calc 84.7 Estimated GFR > 60 Random Glucose 88 Fasting Glucose Calcium 9.6 Total Bilirubin 0.9 Direct Bilirubin 0.3 AST 22 ALT 27 Alkaline Phosphatase 93 Troponin I High Sens 12.6 B-Natriuretic Peptide Total Protein 7.4 Albumin 4.3 COVID-19 (AVTAR) COVID-19 Clin Com Influenza Type A (ELEANOR) Influenza Type B (ELEANOR) Influenza A & B Note 05/28/21 05/28/21 05/28/21 15:28 15:28 15:28 WBC RBC Hgb Hct MCV MCH MCHC RDW Plt Count MPV Immature Gran % (Auto) Neut % (Auto) Lymph % (Auto) [place] % (Auto) Eos % (Auto) Baso % (Auto) Lymph # (Auto) [place] # (Auto) Eos # (Auto) Baso # (Auto) Abs Immat Gran (auto) Absolute Neuts (auto) Absolute Nucleated RBC Nucleated RBC % (auto) D-Dimer High Sensitivty Sodium Potassium Chloride Carbon Dioxide Anion Gap BUN Creatinine Estim Creat Clear Calc Estimated GFR Random Glucose Fasting Glucose Calcium Total Bilirubin Direct Bilirubin AST ALT Alkaline Phosphatase Troponin I High Sens B-Natriuretic Peptide 26 Total Protein Albumin COVID-19 (AVTAR) Negative COVID-19 Clin Com See Note Influenza Type A (ELEANOR) Negative Influenza Type B (ELEANOR) Negative Influenza A & B Note See Note 05/28/21 05/28/21 05/29/21 16:12 18:22 06:58 WBC 6.2 RBC 4.34 L Hgb 13.9 L Hct 40.3 L MCV 92.9 MCH 32.0 MCHC 34.5 RDW 13.2 Plt Count 269 MPV 9.6 Immature Gran % (Auto) 0.3 Neut % (Auto) 56.8 Lymph % (Auto) 27.7 [place] % (Auto) 13.1 H Eos % (Auto) 1.3 Baso % (Auto) 0.8 Lymph # (Auto) 1.7 [place] # (Auto) 0.8 Eos # (Auto) 0.1 Baso # (Auto) 0.1 Abs Immat Gran (auto) 0.02 Absolute Neuts (auto) 3.5 Absolute Nucleated RBC 0.000 Nucleated RBC % (auto) 0.0 D-Dimer High Sensitivty 196 Sodium Potassium Chloride Carbon Dioxide Anion Gap BUN Creatinine Estim Creat Clear Calc Estimated GFR Random Glucose Fasting Glucose Calcium Total Bilirubin Direct Bilirubin AST ALT Alkaline Phosphatase Troponin I High Sens 13.7 B-Natriuretic Peptide Total Protein Albumin COVID-19 (AVTAR) COVID-19 Clin Com Influenza Type A (ELEANOR) Influenza Type B (ELEANOR) Influenza A & B Note 05/29/21 05/29/21 06:58 06:58 WBC RBC Hgb Hct MCV MCH MCHC RDW Plt Count MPV Immature Gran % (Auto) Neut % (Auto) Lymph % (Auto) [place] % (Auto) Eos % (Auto) Baso % (Auto) Lymph # (Auto) [place] # (Auto) Eos # (Auto) Baso # (Auto) Abs Immat Gran (auto) Absolute Neuts (auto) Absolute Nucleated RBC Nucleated RBC % (auto) D-Dimer High Sensitivty Sodium 138 Potassium 4.2 Chloride 105 Carbon Dioxide 25 Anion Gap 12 BUN 14 Creatinine 1.03 Estim Creat Clear Calc 79.8 Estimated GFR > 60 Random Glucose Fasting Glucose 87 Calcium 9.2 Total Bilirubin 1.0 Direct Bilirubin AST 19 ALT 21 Alkaline Phosphatase 83 Troponin I High Sens 10.2 B-Natriuretic Peptide Total Protein 6.7 Albumin 3.9 COVID-19 (AVTAR) COVID-19 Clin Com Influenza Type A (ELEANOR) Influenza Type B (ELEANOR) Influenza A & B Note Discharge Plan Discharge Patient Disposition: er Acute Care Hospital Discharge Diagnosis: Exertional chest pain Referrals: [facility] [Outside] - 1 Week Seun Lamb PA [Primary Care Provider] - 1 Week Discharge Medications: New atorvastatin 80 mg Tablet 80 mg PO DAILY Qty: 30 0RF aspirin 81 mg Tablet,Delayed Release (Dr/Ec) 81 mg PO DAILY Qty: 30 0RF metoprolol tartrate 25 mg Tablet 25 mg PO BID Qty: 60 0RF Protocol: Hold for SBP/HR < HOLD for SBP < : 90 HOLD for HR < : 60 Continued amlodipine 5 mg Tablet 5 mg PO DAILY 0RF Discharge Orders: Discharge Order (Routine); Ordered 05/29/21 Ordered By: Vinayak Rae Diet: advance to usual diet Activity on Discharge: As tolerated Stand Alone Forms: Patient Portal Discharge page Care Plan Goals: Transfer to [facility] for cardiac catheterization Health Concerns: As per receiving facility Plan of Treatment: Cardiac catheterization at [facility] Assessment: See discharge summary Patient Instructions: Chest Pain (DC)
--- NOTE | 2021-05-29 12:19 | PC.NURSE ---
CALL PLACED @ THIS TIME TO [facility] PT TX LINE TO CHECK ON ROOM ASSIGNMENT ARTURO ANSWERS AND CONFIRMS WE ARE STILL WAITING FOR ROOM ASSIGNMENT
--- NOTE | 2021-05-29 13:38 | PC.NURSE ---
@ 4534 CALL RECEIVED FROM [facility] [place] [facility] TX LINE WITH ROOM ASSIGNMENT MASS [employer] 7 ROOM 3 RN TO RN [phone]
== END 2021-05-30 09:08 | disposition short-term general hospital (02) ==
LOC: HO.ED 17:57 → HO.EDOVER 18:15
PROVIDERS: Emergency Medicine; Nurse Practitioner Family; Admitting Provider Hospitalist; Emergency Provider Emergency Medicine Emergency Medical Services; PCP Physician Assistant; Visit Provider Hospitalist
DX: R07.9 Chest pain, unspecified (principal); I10 Essential (primary) hypertension; R05.9 Cough, unspecified; R06.02 Shortness of breath; R79.89 Other specified abnormal findings of blood chemistry; Z20.822 Contact with and (suspected) exposure to COVID-19; Z79.899 Other long term (current) drug therapy
CPT/HCPCS: 36415; 71045; 71275; 80048; 80053; 80076; 83880; 84484; 85025; 85379; 87502; 87635; 93005; 93017; 96372; 99219; 99285; J1650; Q9967

== ENCOUNTER → 2021-06-11 14:05 | Outpatient (BNVA) | payer OTHER, SELFPAY | PROVIDERS: PCP Physician Assistant; Visit Provider Internal Medicine Cardiovascular Disease | DX: I25.10 Atherosclerotic heart disease of native coronary artery without angina pectoris (principal); I10 Essential (primary) hypertension; Z79.899 Other long term (current) drug therapy | CPT/HCPCS: 99212 ==

== ENCOUNTER → 2021-07-11 13:07 | Outpatient (REF) | payer OTHER, SELFPAY ==
--- NOTE | 2021-07-11 13:12 | CA_ITS ---
Transthoracic Echocardiogram Patient (Last, First, Middle): Raymond Ta, Gender: Male Date of : 1955 Age: 65 Procedure Date: 07/11/2021 Procedure Type: Transthoracic Echocardiogram Location: OP Height: 175.26 cm Weight: 82.56 kg BSA: 1.98 m2 Heart Rate: bpm BP: 130 / 80 mmHg Manager Sterile: VH/TO Referring MD: Addy Masterson MD Symptoms: I25.10 - Atherosclerotic heart disease of [place] coronary... Study Quality: Fair ECG Rhythm: Sinus Conclusions: - The left ventricular systolic function is normal. The calculated ejection fraction is 57% by biplane method. - Long,Linear, relatively homogeneous,, freely mobile mass arising from the interatrial septum seen in the left atrium. 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 - No obvious valvular pathology seen on this study. - Consider EVAN/cMRI for further evaluation. Findings Left Ventricle Normal left ventricular cavity size. There is normal left ventricular wall thickness. The left ventricular systolic function is normal. The calculated ejection fraction is 57% by biplane method. There is no evidence of regional wall motion abnormalities. Diastolic function is normal for age. Right Ventricle Normal right ventricular cavity size and systolic function. Atria Both atria are normal in size. Long,Linear, relatively homogeneous,, freely mobile mass arising from the interatrial septum seen in the left atrium. 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 Aortic Valve The aortic valve was not well visualized. There is no aortic valve stenosis. There is trace (trivial) aortic valve regurgitation. Mitral Valve The mitral valve appears normal. There is trace mitral valve regurgitation. There is no mitral valve stenosis. Pulmonic Valve The pulmonic valve was not well visualized. Tricuspid Valve There is trace tricuspid valve regurgitation. The pulmonary artery systolic pressure is normal. Great Vessels The asc aorta is normal in size. Venous The inferior vena cava is normal in size and collapses greater than 50% with inspiration. Pericardium/Pleural There is no evidence of pericardial effusion. Prior Study Comparison No prior study available for comparison. Recommendations, Care & Conclusions No obvious valvular pathology seen on this study. Measurements 2D Linear Measurements IVSd: 0.91 0.6-0.9/0.6-1.0 cm LVIDd: 4.92 3.9-5.3/4.2-5.9 cm LVIDd Index: 2.48 2.4-3.2/2.2-3.1 cm/m2 LVIDs: 3.09 2.0-3.6 cm LVPWd: 0.95 0.7-1.1 cm Ao Root: 3.30 2.1-3.5 cm LA Diam: 3.70 2.7-3.8/3.0-4.0 cm LAIDs Index: 1.87 1.5-2.3 cm/m2 LV Mass: 200.99 67-162/88-224 g LV Mass Index: 101.51 43-95/49-115 g/m2 LVOT Diam: 2.20 3.0+(-)1.3 cm 2D Systolic Function EF 4C: 58.70 >55% EF 2C: 58.10 >55% EF BiP: 56.70 >55% Mitral Valve MV Pk E: 0.81 MV PK A: 0.60 MV Decel Time: 181.00 E/A: 1.30 E'Lateral: 8.81 E'Medial: 7.72 E/E' Med: 10.50 E/E' Lat: 9.20 PHT: 53.00 MVA PHT: 4.15 Decel Nelson: 4.49 Aortic Valve AoV Pk Christophe: 1.53 AoV Mn Christophe: 1.00 AoV VTI: 0.37 AoV Pk Grad: 9.00 Aov Mn Grad: 5.00 BENNY Cont.VTI: 2.47 LVOT LVOT Pk Christophe: 0.97 LVOT Mn Christophe: 0.62 LVOT VTI: 0.24 LVOT Pk Grad: 4.00 LVOT Mn Grad: 2.00 LVOT Diam: 2.20 LVOT Area: 3.80 Diastolic Function MV Pk E: 0.81 MV Pk A: 0.60 E/A: 1.30 E'Medial: 7.72 E/E' Med: 10.50 E' Laterial: 8.81 E/E' Lat: 9.20 Right Ventricle TAPSE (mm): 21.70 TVS' Christophe: 9.79 Tricuspid Valve TR Pk Christophe: 2.27 TR Pk Grad: 21.00 RA Press: 3.00 RVSP: 25.00 Great Vessels Aorta Ao Root-2D: 3.30 2.0-3.7 cm Sinus of Valsalva: 3.30 2.0-3.5 cm Ao Asc: 3.70 2.1-3.4 cm Ao Arch: 3.50 Pulmonary Valve PV Pk Christophe: 1.11 Peak PV Grad: 5.00 Updated in Other Vendor System with Status of Final Dinesh Anaya MD electronically signed on 07/11/2021 3:51:15 PM with status of Final
== END ==
LOC: HO.CARD 13:07
PROVIDERS: PCP Physician Assistant; Visit Provider Internal Medicine Cardiovascular Disease
DX: I25.10 Atherosclerotic heart disease of native coronary artery without angina pectoris (principal)
CPT/HCPCS: 93306

== ENCOUNTER 2021-07-16 13:22 | Day surgery (SDC) | payer OTHER, SELFPAY ==
[2021-06-23 13:27] VITALS: BP 136/70; BMI 27.8
--- NOTE | 2021-07-15 09:52 | HO.ANESPROP2 ---
Documented by User: Unique Luther NP 07/15/21 09:57 HPI - Anesthesia Eval Consult details Narrative: 65yo M for Transesophageal Echocardiogram CAD s/p JOE to mid RCA 05/30/21 [facility] Active Problems Active Problems: All Active Problems (Updated 06/11/21 @ 14:49 by Addy Masterson MD) CAD (coronary artery disease) (Acute) Exertional chest pain (Acute) Hypertension (Acute) Past Medical History Medical History CAD (coronary artery disease) HTN (hypertension) Surgical History Surgical History Stented coronary artery Social History Social History Alcohol intake: current Alcohol intake frequency: 0-2 drinks per day Alcohol type: beer Patient Tobacco Use Status: Never used Tobacco Use of substances other than those prescribed or required for medical reasons: No Are you DNR?: No Advance Directives: No Advance Directives Information Provided: Yes Advance Directives Date on File: 05/29/21 service: Yes Current occupational status: employed Meds Allergies Allergy/AdvReac Type Severity Reaction Status Date / Time Unable to Assess Allergy Verified 05/28/21 12:09 Home Medications Medication Instructions Recorded Confirmed Last Taken Type nitroglycerin 0.4 mg sublingual mg SUBLINGUAL 06/11/21 06/11/21 Unknown History tablet Exam Exam Date and Time: July 15, 2021 0952 Pertinent Lab Results Pertinent Lab Results: Laboratory Tests 05/29/21 05/29/21 06:58 06:58 WBC 6.2 Hgb 13.9 L Hct 40.3 L Plt Count 269 Sodium 138 Potassium 4.2 Chloride 105 Carbon Dioxide 25 BUN 14 Creatinine 1.03 Narrative Narrative: ECHO 06/2021 Conclusions: - The left ventricular systolic function is normal.? The ? calculated ejection fraction is 57% by biplane method. ? - Long,Linear, relatively homogeneous,, freely mobile mass ? ? ? arising from the interatrial septum seen in the left atrium. ? ? Probable myxoma, based on site of origin and appearance (3.1 x ? 0.8-1 cm). ? - No obvious valvular pathology seen on this study.? - Consider EVAN/cMRI for further evaluation.? ? Exercise Stress 05/2021 (prior to JOE) Protocol: SUDARSHAN ? Max HR: 150 BPM? 95% of? Pred: 157 BPM Max BP: 160/090 mmHG Max Work Load: 6.8 METS ? Exercise stress test with exercise 4 min 54 sec, achieving 89% MPHR, with 8/10 ?mid chest pain with moderate shortness of breath, without arrythmia, with ?normotensive response to exercise, with nonspecific ST findings at baseline, ?with [address] depression in V2 , aVL at 14 sec of recovery, then at 3 ?min recovery there is downsloping ST segements starting inferiorly and V3-V6 ?which becomes more prominent before finally returnng back to baseline. His ?chest discomfort gradually improved and resolved with rest. Test reviewed with ?Dr Masterson Assessment and Plan Assessment Anesthesia Assessment: Chart Reviewed Documented by User: Arian Love MD 07/16/21 14:37 [facility] Past Medical History Medical History CAD (coronary artery disease) HTN (hypertension) Family History Family history of problems with anesthesia: No Surgical History Surgical History Stented coronary artery History of Problems with Anesthesia: No Social History Social History Alcohol intake: current Alcohol intake frequency: 0-2 drinks per day Alcohol type: beer Patient Tobacco Use Status: Never used Tobacco Use of substances other than those prescribed or required for medical reasons: No Are you DNR?: No Advance Directives: No Advance Directives Information Provided: Yes Advance Directives Date on File: 05/29/21 service: Yes Current occupational status: employed Meds Allergies Allergy/AdvReac Type Severity Reaction Status Date / Time Unable to Assess Allergy Verified 05/28/21 12:09 Home Medications Medication Instructions Recorded Confirmed Last Taken Type nitroglycerin 0.4 mg sublingual mg SUBLINGUAL 06/11/21 06/11/21 Unknown History tablet Exam Airway Mallampati Class: II TM Dist: >3cm Neck ROM: Full Loose/Missing/Broken Teeth: No Heart: irreg irreg s1s2 Lungs: cta b/l Assessment and Plan Assessment Anesthesia Assessment: Anesthesia Plan Discussed Final Anesthetic Review Family History of Problems with Anesthesia: No History of Problems with Anesthesia: No NPO: Yes ASA Class: III Final Preanesthetic Review: No Changes in Pt Med Stat, Meds/Allgs Chart Reviewed, Consent Obtained/Reviewed and Anes Risks/Benef Reviewed Patient Risk: Intermediate Procedure Risk: Intermediate Assessment/Block/Sedation in SS: Assess/Block/Sedation-SS Anesthetic Plan Anesthetic Plan: MAC: and Agree w/ Assess. and Plan Disposition: Standard PACU
[2021-07-16 10:14] VITALS: BMI 28.2
--- NOTE | 2021-07-16 13:30 | MHC.SHP ---
Pre-Procedural Eval Section A Date of Service: 07/16/21 The patient is an INPATIENT: No Changes since office visit: Yes Patient answered all questions; No Cold of Flu in the past 2 weeks, No New Medical Problems and No Changes in Medication Section B Chief Complaint: atrial mass Allergies: Allergies Allergy/AdvReac Type Severity Reaction Status Date / Time Unable to Assess Allergy Verified 05/28/21 12:09 Plan I have reviewed the history and physical and performed a pertinent physical examination on my patient. No changes have occurred unless specified.
[2021-07-16 13:31] VITALS: BMI 27.0
[2021-07-16 13:51] VITALS: BP 133/73; PULSE 47; RESP 18; TEMP 36.7; O2SAT 98
[2021-07-16] MEDS: Lactated Ringers 1,000 ML 100 ML IVCONT (14:24)
--- NOTE | 2021-07-16 15:00 | CA_ITS ---
Transesophageal Echocardiogram Patient (Last, First, Middle): Raymond Ta, Gender: Male Date of : 1955 Age: 65 Procedure Date: 07/16/2021 Procedure Type: Transesophageal Echocardiogram Location: OP Height: 175.26 cm Weight: 83.01 kg BSA: 1.99 m2 Heart Rate: bpm Ballroom Dance Instructor: DONTAE Sahu MD: Addy Masterson MD Automation And Controls Instructor: Addy Masterson MD Symptoms: Left atrial mass Conclusion: ??? 1. 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 Normal LV systolic function with normal diastolic function 3. Cardiac valvular Doppler within normal limits 4. No intracardiac shunting 5. Normal pericardium 6. No significant atherosclerosis in the aorta Findings Procedure Information Consent was obtained prior to the procedure. Pre EVAN oral cavity was checked and revealed no overcrowding. The adult 3D probe was passed with no difficulty. Left Ventricle Normal left ventricular size, thickness, and systolic function. The visually estimated ejection fraction is between 55-60%. There is no evidence of regional wall motion abnormalities. Spectral Doppler is indicative of a normal filling pattern. There is no evidence of a thrombus in the left ventricle. Right Ventricle Normal right ventricular cavity size and systolic function. Atria Both atria are normal in size. There is a mobile atrial septum noted. There is no evidence of interatrial shunt. There is no evidence of a patent foramen ovale. The left atrial appendage was identified in multiple views. There is no smoke or clot formation with the left atrial appendage. The left upper, right upper and right lower pulmonary vein drain normally into the left atrium. There is a mobile, pedunculated, irregular, multi lobular, solid mass attached to the fossa ovalis, measuring 2.8 x 1 cm, most consistent with left atrial myxoma. There is no evidence of thrombus or mass in the right atrium. the IVC and SVC drain normally into the right atrium. The right atrial appendage is identified without any clear thrombi within it. Aortic Valve Normal aortic valve structure and function. There is no aortic valve stenosis. There is trace (trivial) aortic valve regurgitation. Mitral Valve Normal mitral valve structure and function. There is trace mitral valve regurgitation. There is no mitral valve stenosis. Pulmonic Valve The pulmonic valve is likely normal. Tricuspid Valve Normal tricuspid valve structure. There is trace tricuspid valve regurgitation. Great Vessels All visible segments of the aorta are normal in size. The pulmonary artery was not well visualized. Venous The inferior vena cava is normal in size and collapses greater than 50% with inspiration. Pericardium/Pleural There is no evidence of pericardial effusion. Measurements Mitral Valve MV Pk E: 0.56 MV PK A: 0.45 MV Decel Time: 243.00 E/A: 1.20 E'Lateral: 12.20 E'Medial: 6.48 E/E' Med: 8.60 E/E' Lat: 4.60 PHT: 71.00 MVA PHT: 3.10 Decel [place]: 2.28 Diastolic Function MV Pk E: 0.56 MV Pk A: 0.45 E/A: 1.20 E'Medial: 6.48 E/E' Med: 8.60 E' Laterial: 12.20 E/E' Lat: 4.60 Updated by Addy Masterson on 04:11 PM with Status of Final Addy Masterson MD electronically signed on 07/16/2021 4:11:58 PM with status of Final
[2021-07-16 15:44] VITALS: BP 122/80; PULSE 59; RESP 18; TEMP 36.3; O2SAT 99
[2021-07-16 15:59] VITALS: BP 139/79; PULSE 48; RESP 18; O2SAT 98
[2021-07-16 16:14] VITALS: BP 143/81; PULSE 48; RESP 18; TEMP 36.3; O2SAT 98
== END 2021-07-16 16:32 | disposition home or self-care (01) ==
PROVIDERS: PCP Physician Assistant; Visit Provider Internal Medicine Cardiovascular Disease
PROC: (CPT 93312; principal; 2021-07-16 15:00)
DX: I31.8 Other specified diseases of pericardium (principal); I25.10 Atherosclerotic heart disease of native coronary artery without angina pectoris; Z98.61 Coronary angioplasty status; I10 Essential (primary) hypertension; Z79.82 Long term (current) use of aspirin; Z79.899 Other long term (current) drug therapy
CPT/HCPCS: 93312; Q9957

== ENCOUNTER 2021-07-24 06:13 | Outpatient (REF) | payer OTHER, SELFPAY ==
[2021-06-23 13:27] VITALS: BP 136/70
[2021-07-22 08:31] VITALS: BP 116/60; BMI 27.8
[2021-07-24 07:46] LABS: Anion Gap 11 (12-20); Blood Urea Nitrogen 12 mg/dL (9-16); Calcium 9.2 mg/dL (8.4-10.2); Carbon Dioxide 23 mmol/L (22-29); Chloride 110 mmol/L (96-108); Cholesterol 98 mg/dL; Estimated Glomerular Filt Rate > 60; Glucose Random 99 mg/dL (60-115); HDL Cholesterol 30 mg/dL; LDL Cholesterol Calculated 58 mg/dl; Potassium 4.1 mmol/L (3.3-5.1); Sodium 140 mmol/L (135-145); Triglycerides 52 mg/dL
== END 2021-07-24 06:14 | disposition home or self-care (01) ==
LOC: HO.LAB 06:13
PROVIDERS: PCP Physician Assistant; Visit Provider Internal Medicine Cardiovascular Disease
DX: I25.10 Atherosclerotic heart disease of native coronary artery without angina pectoris (principal)
CPT/HCPCS: 36415; 80048; 80061

== ENCOUNTER 2021-07-25 10:10 | Outpatient (REF) | payer OTHER, SELFPAY ==
[2021-06-23 13:27] VITALS: BP 136/70
[2021-07-22 08:31] VITALS: BP 116/60; BMI 27.8
[2021-07-25 11:19] LABS: Mean Corpuscular HGB Conc 33.3 g/dl (31.0-36.0); Mean Corpuscular Hemoglobin 31.6 pg (27.0-33.0); Mean Corpuscular Volume 94.9 fL (80.0-98.0); Mean Platelet Volume 10.2 fL (9.4-12.4); Platelet Count 300 X10*3/uL (160-400); Red Blood Count 4.11 X10*6/uL (4.60-5.80); White Blood Count 6.3 X10*3/uL (4.8-10.8)
[2021-07-25 11:24] LABS: INTERNATIONAL NORM RATIO 1.1 (0.9-1.1); Prothrombin Time 12.4 SEC (9.9-13.0)
== END 2021-07-25 10:11 | disposition home or self-care (01) ==
LOC: HO.LAB 10:10
PROVIDERS: PCP Physician Assistant; Visit Provider Internal Medicine Cardiovascular Disease
DX: I25.10 Atherosclerotic heart disease of native coronary artery without angina pectoris (principal); R07.9 Chest pain, unspecified; I10 Essential (primary) hypertension
CPT/HCPCS: 36415; 85027; 85610

== ENCOUNTER → 2021-08-21 15:27 | Outpatient (BNVA) | payer OTHER, SELFPAY ==
[2021-07-29 08:48] VITALS: BP 116/60; BMI 27.8
== END ==
PROVIDERS: PCP Physician Assistant; Visit Provider Internal Medicine Cardiovascular Disease
DX: I25.10 Atherosclerotic heart disease of native coronary artery without angina pectoris (principal); I97.89 Other postprocedural complications and disorders of the circulatory system, not elsewhere classified; I48.91 Unspecified atrial fibrillation; Z86.018 Personal history of other benign neoplasm; Z95.2 Presence of prosthetic heart valve
CPT/HCPCS: 99212

== ENCOUNTER → 2021-08-28 11:02 | Outpatient (REF) | payer OTHER, SELFPAY ==
[2021-07-29 08:48] VITALS: BP 116/60; BMI 27.8
--- NOTE | 2021-08-28 11:08 | HM_ITS ---
Conclusion: 1. Patient was monitored for total period of 3 days and 4 hours 2. Baseline was normal sinus rhythm with average heart of 72 beats per minute 3. No sustained atrial fibrillation noted 4. Very rare ectopy noted 5. No patient reported events MTDD
== END ==
LOC: HO.CARD 11:02
PROVIDERS: PCP Physician Assistant; Visit Provider Internal Medicine Cardiovascular Disease
DX: I48.91 Unspecified atrial fibrillation (principal); I97.89 Other postprocedural complications and disorders of the circulatory system, not elsewhere classified
CPT/HCPCS: 93242

== ENCOUNTER → 2021-09-04 11:13 | Outpatient (REF) | payer OTHER, SELFPAY ==
[2021-07-29 08:48] VITALS: BP 116/60; BMI 27.8
--- NOTE | 2021-09-04 11:15 | CA_ITS ---
Transthoracic Echocardiogram Patient (Last, First, Middle): Raymond Ta, Gender: Male Date of : 1955 Age: 65 Procedure Date: 09/04/2021 Procedure Type: Transthoracic Echocardiogram Location: OP Height: 175.26 cm Weight: 79.38 kg BSA: 1.95 m2 Heart Rate: bpm BP: 124 / 78 mmHg Monotype Mechanic: HORTENCIA Referring MD: Addy Masterson MD Other Sports Official: Addy Masterson MD Symptoms: D15.1 - Benign neoplasm of heart, s/p Surgery Study Quality: Fair/Contrast ECG Rhythm: Sinus Conclusions: - Essentially normal study Findings Procedure Information Contrast agent, definity, is being given per protocol without apparent complications. Left Ventricle Normal left ventricular size, thickness, and systolic function. The visually estimated ejection fraction is between 60-65%. There is paradoxical septal motion consistent with post-operative status. Spectral Doppler is indicative of an impaired relaxation filling pattern. Right Ventricle Normal right ventricular cavity size and systolic function. Atria The left atrium is normal in size. Interatrial shunt cannot be excluded. The right atrium is normal in size. Aortic Valve The aortic valve structure and function is likely normal. There is no aortic valve stenosis. There is no aortic valve regurgitation. Mitral Valve Likely normal mitral valve structure and function. There is trace mitral valve regurgitation. There is no mitral valve stenosis. Pulmonic Valve The pulmonic valve was not well visualized. Tricuspid Valve Likely normal tricuspid valve structure and function. Tricuspid regurgitation envelope is inadequate for calculation of right ventricular systolic pressure. Great Vessels All visible segments of the aorta are normal in size. The pulmonary artery was not well visualized. Venous The inferior vena cava is normal in size and collapses greater than 50% with inspiration. Pericardium/Pleural There is no evidence of pericardial effusion. Prior Study Comparison Changes noted compared to prior study dated: 07/16/2021. left atrial mass is not noted Measurements 2D Linear Measurements IVSd: 1.10 0.6-0.9/0.6-1.0 cm LVIDd: 4.56 3.9-5.3/4.2-5.9 cm LVIDd Index: 2.34 2.4-3.2/2.2-3.1 cm/m2 LVIDs: 3.17 2.0-3.6 cm LVPWd: 1.08 0.7-1.1 cm LA Diam: 3.40 2.7-3.8/3.0-4.0 cm LAIDs Index: 1.74 1.5-2.3 cm/m2 LV Mass: 219.82 67-162/88-224 g LV Mass Index: 112.73 43-95/49-115 g/m2 LVOT Diam: 2.00 3.0+(-)1.3 cm 2D Systolic Function EF 4C: 64.40 >55% EF 2C: 63.40 >55% EF BiP: 64.60 >55% Mitral Valve MV Pk E: 0.56 MV PK A: 0.50 MV Decel Time: 260.00 E/A: 1.10 E'Lateral: 12.80 E'Medial: 9.25 E/E' Med: 6.10 E/E' Lat: 4.40 PHT: 76.00 MVA PHT: 2.89 Decel [place]: 2.16 Aortic Valve AoV Pk Christophe: 1.11 AoV Mn Christophe: 0.79 AoV VTI: 0.19 AoV Pk Grad: 5.00 Aov Mn Grad: 3.00 BENNY Cont.VTI: 2.71 LVOT LVOT Pk Christophe: 1.00 LVOT Mn Christophe: 0.74 LVOT VTI: 0.16 LVOT Pk Grad: 4.00 LVOT Mn Grad: 2.00 LVOT Diam: 2.00 LVOT Area: 3.14 Diastolic Function MV Pk E: 0.56 MV Pk A: 0.50 E/A: 1.10 E'Medial: 9.25 E/E' Med: 6.10 E' Laterial: 12.80 E/E' Lat: 4.40 Right Ventricle TAPSE (mm): 16.10 TVS' Christophe: 8.05 Tricuspid Valve RA Press: 3.00 Great Vessels Aorta Sinus of Valsalva: 3.51 2.0-3.[address] [place]: 3.28 1.7-3.4 cm Ao Asc: 3.80 2.1-3.4 cm Updated in Other Vendor System with Status of Final Addy Masterson MD electronically signed on 09/04/2021 2:28:45 PM with status of Final
== END ==
LOC: HO.CARD 11:13
PROVIDERS: PCP Physician Assistant; Visit Provider Internal Medicine Cardiovascular Disease
DX: D15.1 Benign neoplasm of heart (principal)
CPT/HCPCS: 93306; Q9957

== ENCOUNTER → 2021-11-13 15:08 | Outpatient (BNVA) | payer OTHER, SELFPAY ==
[2021-09-17 11:30] VITALS: BP 118/70; BP 120/70
[2021-11-10 07:57] VITALS: BP 134/78; BMI 27.0
== END ==
PROVIDERS: PCP Physician Assistant; Visit Provider Internal Medicine Cardiovascular Disease
DX: I25.10 Atherosclerotic heart disease of native coronary artery without angina pectoris (principal); D15.1 Benign neoplasm of heart; I97.89 Other postprocedural complications and disorders of the circulatory system, not elsewhere classified; I48.91 Unspecified atrial fibrillation
CPT/HCPCS: 93005; 99212

== ENCOUNTER → 2022-05-05 15:07 | Outpatient (BNVA) | payer OTHER, SELFPAY ==
[2022-01-01 06:57] VITALS: BP 128/68; BP 136/74; BMI 27.2
== END ==
PROVIDERS: PCP Physician Assistant; Referring Provider Physician Assistant; Visit Provider Internal Medicine Cardiovascular Disease
DX: I25.10 Atherosclerotic heart disease of native coronary artery without angina pectoris (principal); D15.1 Benign neoplasm of heart; Z79.82 Long term (current) use of aspirin
CPT/HCPCS: 99212

== ENCOUNTER → 2022-08-26 14:54 | Outpatient (REF) | payer OTHER, SELFPAY ==
[2022-01-01 06:57] VITALS: BP 128/68; BP 136/74; BMI 27.2
== END ==
LOC: HO.CARD 14:54
PROVIDERS: PCP Physician Assistant; Visit Provider Internal Medicine Cardiovascular Disease
DX: D15.1 Benign neoplasm of heart (principal)
CPT/HCPCS: 93306; Q9957

== ENCOUNTER 2022-11-16 15:26 | Outpatient (AMB) | payer OTHER, SELFPAY ==
[2022-01-01 06:57] VITALS: BP 128/68; BP 136/74; BMI 27.2
[2022-11-16 15:28] VITALS: BP 160/90; PULSE 56; BMI 29.3
--- NOTE | 2022-11-16 15:28 | A.OFFVIS_ITS ---
Intake Vital Signs 11/16/22 15:28 Height 5 ft 9 in Weight 198 lb 6.656 oz BMI 29.3 BP 160/90 H Blood Pressure Location Lt brachial Position Sitting Pulse 56 Intake Visit Reasons: 6 mth f/up echo Intake Note: 6 month follow-up after echo with ekg c/o pain in left chest mostly at night Continuous Drier Operator Required: No Monorail Operator: Monorail Operator Present Accompanied by: Spouse Allergies Unable to Assess Allergy (Verified 05/28/21 12:09) Medication List - Last Reconciled 11/16/22 by Addy Masterson MD aspirin 81 mg PO DAILY atorvastatin 80 mg PO DAILY metoprolol tartrate 25 mg See Protocol PO BID nitroglycerin 0.4 mg sublingual ONCE HPI HPI Comments History of Present Illness Details Raymond comes for follow-up, accompanied by his . He was upset about this sign in process and blood pressure is elevated. Usually at home his blood pressure is well controlled with generally systolic blood pressure less than 130. He complains every night when he goes to bed and when he initially lays flat he develops precordial chest discomfort which is tightness in his chest. Then years to adjust his position and by the end of the night he is sleeping in the same in reclining position with improvement in his symptoms. Patient does not have any exertional symptoms. Denies any other complaints. Recent echocardiogram shows normal LV systolic function with mild thoracic aortic enlargement. [facility] Medical History (Updated 11/17/22 @ 12:23 by Addy Masterson MD) Myxoma of heart CAD (coronary artery disease) HTN (hypertension) Surgical History S/P CABG x 1 Stented coronary artery Social History Alcohol intake: current Alcohol intake frequency: 0-2 drinks per day Alcohol type: beer Patient Tobacco Use Status: Never used Tobacco Advance Directives Date on File: 05/29/21 service: Yes Current occupational status: employed Review of Systems Const Denies chills, Denies fatigue, Denies fever(s), Denies frequent falls, Denies weakness, Denies weight gain and Denies weight loss ENT Denies dizziness Card Denies chest pain, Denies leg edema, Denies lightheadedness, Denies palpitations, Denies dyspnea, Denies dyspnea on exertion, Denies orthopnea and Denies other (loss of consciousness) Resp Denies cough, Denies dyspnea and Denies dyspnea on exertion GI Denies hematochezia and Denies change in stool character Musc Denies abnormal gait, Denies muscle weakness, Denies numbness, Denies radiating pain into limb and Denies tingling Neuro Denies abnormal gait, Denies dizziness, Denies frequent falls, Denies numbness, Denies tingling and Denies weakness Endo Denies fatigue and Denies palpitations Physical Exam Vital Signs: Last Vital Signs Pulse 56 11/16/22 15:28 BP 160/90 H 11/16/22 15:28 BMI result Body Mass Index 29.3 Const General: cooperative, comfortable, no acute distress, alert, awake and Physically active Nutritional Appearance: average body habitus Orientation/consciousness: patient oriented x3 Neck Neck: Yes trachea midline, Yes supple and Yes no JVD Chest Chest palpation & inspection: other (Sternotomy wound has healed well with no discharge.) Resp Effort & Inspection: normal respiratory effort Auscultation: clear to auscultation bilaterally Cardio Jugular venous distension: no JVD Palpation: normal PMI Rate: regular rate Rhythm: regular rhythm Heart sounds: S1 normal heart sound present, S2 normal heart sound present, no click, no gallops and no murmurs Peripheral pulses: radial pulses present and ulnar radial pulses present GI Auscultation: normal bowel sounds Skin General skin exam: no rashes or lesions noted Neuro General: patient oriented x3 and no focal motor deficits Extrem General: Yes no clubbing, cyanosis or edema Office Procedures EKG Details: EKG shows normal sinus rhythm with isolated Q-wave in lead 3 most likely pseudo infarct pattern with poor R-wave progression most likely lead placement [id number], Complete Assessment & Plan Assessment & Plan (1) Atypical chest pain: Code(s): R07.89 - Other chest pain Plan: Atypical chest pain in this elderly man with prior history of CAD status post stenting. Although myocardial ischemia is less likely I would suggest him to undergo treadmill stress test to evaluate for the same. Most likely represents acid reflux disease. Have advised him to changes dietary habits as well as start empiric therapy with omeprazole. It if his stress test is negative and his symptoms are not resolved should refer to GI for further evaluation. (2) CAD (coronary artery disease): Code(s): I25.10 - Atherosclerotic heart disease of [place] coronary artery without angina pectoris Plan: CAD with prior drug-eluting stent to the LAD for exertional symptoms. No recurrent symptoms at current point in time. Continue aggressive medical therapy. Continue aspirin for lifelong. Continue high-intensity statin therapy with target goal LDL closer to 60 mg/dL. Blood pressure is generally well optimized. Blood pressure elevation noted on today's exam most likely related to check in process related aggravation. Advised to monitor blood pressure at home advise if blood pressure remains consistently elevated will require further treatment. Low-salt diet was discussed. Stress mitigation strategies were discussed. (3) Thoracic aortic aneurysm: Code(s): I71.20 - Thoracic aortic aneurysm, without rupture, unspecified Plan: Mild thoracic aortic aneurysm. Most likely atherosclerotic in nature. Advise continue risk factor modifications above. Continue aggressive control blood pressure. 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 No recurrence at this point time. Will follow up in 1 year's time, sooner p.r.n.. Thank you for allowing me to partake in his care Orders: Orders CA stress test 11/16/22 I25.10 - Atherosclerotic heart disease of [place] coronary artery without angina pectoris, R07.89 - Other chest pain CA echo transthoracic complete 52 Weeks I71.20 - Thoracic aortic aneurysm, without rupture, unspecified Coding Level of Care Code Est Pt Level 4 (23361) Diagnoses Atypical chest pain R07.89 CAD (coronary artery disease) I25.10 Thoracic aortic aneurysm I71.20 Myxoma of heart D15.1 CPT Codes EKG - CPT: [id number], Complete ([id number])
== END 2022-11-16 15:56 | disposition home or self-care (01) ==
PROVIDERS: PCP Physician Assistant; Visit Provider Internal Medicine Cardiovascular Disease
DX: R07.89 Other chest pain (principal); I25.10 Atherosclerotic heart disease of native coronary artery without angina pectoris; I71.20 Thoracic aortic aneurysm, without rupture, unspecified; D15.1 Benign neoplasm of heart
CPT/HCPCS: 93010; 99214

== ENCOUNTER → 2022-11-16 15:26 | Outpatient (BNVA) | payer OTHER, SELFPAY ==
[2022-01-01 06:57] VITALS: BP 128/68; BP 136/74; BMI 27.2
== END ==
PROVIDERS: PCP Physician Assistant; Visit Provider Internal Medicine Cardiovascular Disease
DX: R07.89 Other chest pain (principal); I25.10 Atherosclerotic heart disease of native coronary artery without angina pectoris; I71.20 Thoracic aortic aneurysm, without rupture, unspecified; D15.1 Benign neoplasm of heart
CPT/HCPCS: 93005; 99212

== ENCOUNTER → 2022-11-23 07:42 | Outpatient (REF) | payer OTHER, SELFPAY ==
[2022-01-01 06:57] VITALS: BP 128/68; BP 136/74; BMI 27.2
--- NOTE | 2022-11-23 07:44 | CA_ITS ---
Acquisition Time: 2022-11-23 08:14:37 Total Exercise Time: 00:07:05 Test Indications: CP Medications: ASA ATORVASTATIN METOPROLOL Protocol: SUDARSHAN Max HR: 157 BPM 101% of Pred: 155 BPM Max BP: 172/084 mmHG Max Work Load: 8.6 METS Exercise stress test exercise 7 min 5 sec of Sudarshan protocol achieving 101% MPHR, with mild to moderate SOB, no chest discomfort, with isolated PVCs, with normotensive response to exercise, without EKG changes for ischemia. Test reviewed with Dr. Gupta. Mild lateral ST depression at baseline, more prominent post exercise. Non specific. Referred By: Addy Masterson Overread By: PATRICK GUPTA
== END ==
LOC: HO.CARD 07:42
PROVIDERS: PCP Physician Assistant; Visit Provider Internal Medicine Cardiovascular Disease
DX: R07.89 Other chest pain (principal); I25.10 Atherosclerotic heart disease of native coronary artery without angina pectoris
CPT/HCPCS: 93017

== ENCOUNTER → 2022-11-23 07:44 | Outpatient (BNV) | payer OTHER, SELFPAY ==
[2022-01-01 06:57] VITALS: BP 128/68; BP 136/74; BMI 27.2
== END ==
PROVIDERS: PCP Physician Assistant; Visit Provider Internal Medicine
DX: R06.02 Shortness of breath (principal); R07.89 Other chest pain
CPT/HCPCS: 93016; 93018

== ENCOUNTER 2022-12-23 06:29 | Day surgery (SDC) | payer OTHER, SELFPAY ==
[2022-01-01 06:57] VITALS: BP 128/68; BP 136/74; BMI 27.2
[2022-12-21 09:58] VITALS: BMI 29.2
--- NOTE | 2022-12-22 08:17 | HO.ANESPROP2 ---
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 Last seen 10/2022, stable with 1 year f/u [facility] Active Problems Active Problems: All Active Problems (Updated 12/21/22 @ 09:56 by Lety Bobo RN) Thoracic aortic aneurysm (Acute) Hypertension (Acute) Myxoma of heart (Acute) CAD (coronary artery disease) (Acute) Past Medical History Medical History (Updated 12/23/22 @ 07:59 by Jaclyn Coles MD) Elevated cholesterol Dilatation of aorta History of transesophageal echocardiography (EVAN) Myxoma of heart CAD (coronary artery disease) HTN (hypertension) Family History Family history of problems with anesthesia: No Surgical History Surgical History Hx of hemorrhoidectomy History of excision of pilonidal cyst H/O colonoscopy S/P CABG x 1 Stented coronary artery History of Problems with Anesthesia: No Social History Social History Alcohol intake: current Alcohol intake frequency: does not drink Alcohol type: beer Patient Tobacco Use Status: Never used Tobacco Use of substances other than those prescribed or required for medical reasons: No Have you been hit, kicked, punched, or otherwise hurt by someone within the past year? If so, by whom?: No Are you DNR?: No Advance Directives: No Advance Directives Information Provided: Yes Advance Directives Date on File: 05/29/21 Recently lost weight without trying: No Nutrition Risks: No Nutritional Risk Poor oral hygiene: No service: Yes Current occupational status: employed Meds Allergies Allergy/AdvReac Type Severity Reaction Status Date / Time No Known Allergies Allergy Verified 12/21/22 09:49 Home Medications Medication Instructions Recorded Confirmed Last Taken Type nitroglycerin 0.4 mg sublingual 0.4 mg sublingual ONCE 11/16/22 12/21/22 Unknown History tablet Exam Exam Date and Time: December 22, 2022 0817 Height,Weight and Vital Signs: Height 5 ft 9 in Weight 89.811 kg Narrative Narrative: EKG 10/2022 normal sinus rhythm with isolated Q-wave in lead 3 most likely pseudo infarct pattern with poor R-wave progression most likely lead placement ECHO 08/2022 Conclusions: - The left ventricular systolic function is normal. The visually estimated ejection fraction is between 60-65%. - No obvious valvular pathology seen on this study. - There is mild dilatation of the ascending aorta measuring 4.00 cm. Exercise stress 11/2022 Protocol: HASMUKH Max HR: 157 BPM 101% of Pred: 155 BPM Max BP: 172/084 mmHG Max Work Load: 8.6 METS Exercise stress test exercise 7 min 5 sec of Hasmukh protocol achieving 101% MPHR, with mild to moderate SOB, no chest discomfort, with isolated PVCs, with normotensive response to exercise, without EKG changes for ischemia. Test reviewed with Dr. Anaya. Mild lateral ST depression at baseline, more prominent post exercise. Non specific Assessment and Plan Assessment Anesthesia Assessment: Chart Reviewed Final Anesthetic Review Family History of Problems with Anesthesia: No History of Problems with Anesthesia: No Documented by User: Jaclyn Coles MD 12/23/22 07:59 [facility] Active Problems Active Problems: All Active Problems (Updated 12/23/22 @ 07:20 by Jaclyn Coles MD) Thoracic aortic aneurysm (Acute) Hypertension (Acute) Myxoma of heart (Acute) CAD (coronary artery disease) (Acute) No TIA/CVA history Denies REHANA symptoms Atypical chest pain mostly at night. Cardiac w/u negative ? GERD Past Medical History Medical History (Updated 12/23/22 @ 07:59 by Jaclyn Coles MD) Elevated cholesterol Dilatation of aorta History of transesophageal echocardiography (EVAN) Myxoma of heart CAD (coronary artery disease) HTN (hypertension) Surgical History Surgical History Hx of hemorrhoidectomy History of excision of pilonidal cyst H/O colonoscopy S/P CABG x 1 Stented coronary artery Social History Social History Alcohol intake: current Alcohol intake frequency: does not drink Alcohol type: beer Patient Tobacco Use Status: Never used Tobacco Use of substances other than those prescribed or required for medical reasons: No Have you been hit, kicked, punched, or otherwise hurt by someone within the past year? If so, by whom?: No Are you DNR?: No Advance Directives: No Advance Directives Information Provided: Yes Advance Directives Date on File: 05/29/21 Recently lost weight without trying: No Nutrition Risks: No Nutritional Risk Poor oral hygiene: No service: Yes Current occupational status: employed Meds Allergies Allergy/AdvReac Type Severity Reaction Status Date / Time No Known Allergies Allergy Verified 12/21/22 09:49 Home Medications Medication Instructions Recorded Confirmed Last Taken Type nitroglycerin 0.4 mg sublingual 0.4 mg sublingual ONCE 11/16/22 12/21/22 Unknown History tablet Exam Height,Weight and Vital Signs: Height 5 ft 9 in Weight 89.811 kg Vital Signs Temp Pulse Resp BP Pulse Ox O2 Del Method 12/23/22 06:53 98.7 F 65 18 156/91 H 96 Room Air Airway Mallampati Class: III TM Dist: >3cm Neck ROM: Full Loose/Missing/Broken Teeth: No (Denies broken, loose, missing teeth) Heart: RRR Lungs: CTAB Assessment and Plan Assessment Anesthesia Assessment: Anesthesia Plan Discussed Final Anesthetic Review NPO: Yes ASA Class: III Final Preanesthetic Review: No Changes in Pt Med Stat, Meds/Allgs Chart Reviewed, Consent Obtained/Reviewed and Anes Risks/Benef Reviewed Patient Risk: Intermediate Procedure Risk: Low Assessment/Block/Sedation in SS: Assess/Block/Sedation-SS Anesthetic Plan Anesthetic Plan: MAC: Disposition: Standard PACU
[2022-12-23 06:41] VITALS: BMI 27.3
[2022-12-23 06:53] VITALS: BP 156/91; PULSE 65; RESP 18; TEMP 37.1; O2SAT 96
[2022-12-23] MEDS: Lactated Ringers 1,000 ML 100 ML IVCONT (07:10)
[2022-12-23 08:19] VITALS: BP 94/67; PULSE 63; RESP 14; TEMP 36.2; O2SAT 98
[2022-12-23 08:24] VITALS: BP 94/64; PULSE 56; RESP 16; O2SAT 98
--- NOTE | 2022-12-23 08:24 | PM.OP ---
Brief Operative Note Date of Service: 12/23/22 Pre-op diagnosis: Rectal bleeding Post-op diagnosis: other (Diverticulosis, Internal/External hemorrhoids) Procedure: Colonoscopy to the cecum and TI Surgeon: Trevor Myers MD Anesthesia: MAC Was an Mixing Machine Attendant used for this Procedure?: No Estimated blood loss (mL): 0 Pathology: none sent Condition: stable Disposition: PACU
[2022-12-23 08:29] VITALS: BP 97/67; PULSE 57; RESP 16; O2SAT 98
[2022-12-23 08:34] VITALS: BP 133/82; PULSE 52; RESP 16; TEMP 36.2; O2SAT 98
--- NOTE | 2022-12-23 08:48 | OP_ITS ---
DATE OF SERVICE: 12/23/2022 SURGEON: Trevor Myers MD INDICATIONS: The patient presents for evaluation of intermittent hematochezia and heme-positive stool. Full consent was obtained from him for this, including risks of bleeding and perforation. PREOPERATIVE DIAGNOSIS: POSTOPERATIVE DIAGNOSIS: PROCEDURE PERFORMED: Colonoscopy to the cecum and terminal ileum. ESTIMATED BLOOD LOSS: COMPLICATIONS: ANESTHESIA: Medication used, monitored anesthesia care. ASSISTANTS: SPECIMENS: PREOPERATIVE DIAGNOSES: Heme-positive stool and hematochezia. POSTOPERATIVE DIAGNOSES: Heme-positive stool and hematochezia, diverticulosis, internal and external hemorrhoids. DESCRIPTION OF PROCEDURE: The patient was placed in the left lateral decubitus position. The digital rectal exam revealed external hemorrhoidal tissue. The Olympus video pediatric colonoscope was entered into the rectum and advanced easily to the cecum. Once in the cecum, I did identify normal-appearing cecal pouch with appendiceal orifice and a normal-appearing ileocecal valve. The terminal ileum was cannulated and appeared normal. Scope withdrawn back into the colon. The entire cecum and ileocecal valve appeared normal. The scope was slowly withdrawn assessing all mucosal surfaces carefully. Preparation was excellent. I did not visualize any sign of polyps, colitis, nor angiodysplasia. There was a mild amount of sigmoid diverticulosis. In the rectum, scope was retroflexed visualizing internal hemorrhoids, but no other pathology. The rectal mucosa appeared normal. The scope was straightened and withdrawn from the patient. He tolerated the procedure well and was returned to the recovery area in stable condition. IMPRESSION: 1. Diverticulosis. 2. Internal and external hemorrhoids. PLAN: Given his negative exam and no family history of colon cancer, I would recommend a followup colonoscopy in 10 years. He was advised to resume his aspirin and iron today. This has been discussed with his . MD PAN Mcdonnell/ZULEYKA / [id number]
== END 2022-12-23 09:18 | disposition home or self-care (01) ==
PROVIDERS: PCP Physician Assistant; Visit Provider Internal Medicine
PROC: 0DJD8ZZ Inspection of Lower Intestinal Tract, Via Natural or Artificial Opening Endoscopic (ICD-10-PCS; CPT 45378; principal; 2022-12-23 07:30)
DX: K62.5 Hemorrhage of anus and rectum (principal); R19.5 Other fecal abnormalities; K57.30 Diverticulosis of large intestine without perforation or abscess without bleeding; K64.8 Other hemorrhoids; K64.4 Residual hemorrhoidal skin tags; I25.10 Atherosclerotic heart disease of native coronary artery without angina pectoris; I10 Essential (primary) hypertension; E78.5 Hyperlipidemia, unspecified; Z95.1 Presence of aortocoronary bypass graft; Z95.5 Presence of coronary angioplasty implant and graft; Z86.79 Personal history of other diseases of the circulatory system; Z79.01 Long term (current) use of anticoagulants; Z79.82 Long term (current) use of aspirin; Z79.899 Other long term (current) drug therapy; Z98.890 Other specified postprocedural states
CPT/HCPCS: 45378

== ENCOUNTER → 2023-11-15 09:06 | Outpatient (REF) | payer OTHER, SELFPAY ==
[2022-01-01 06:57] VITALS: BP 128/68; BP 136/74; BMI 27.2
--- NOTE | 2023-11-15 09:12 | CA_ITS ---
Transthoracic Echocardiogram Patient (Last, First, Middle): Raymond Ta, Gender: Male Date of : 1955 Age: 68 Procedure Date: 11/15/2023 Procedure Type: Transthoracic Echocardiogram Location: OP Height: 175.26 cm Weight: 86.18 kg BSA: 2.02 m2 Heart Rate: 46 bpm BP: 134 / 71 mmHg Programming Manager: HORTENCIA Referring MD: Addy Masterson MD Symptoms: I71.20 - Thoracic aortic aneurysm, without rupture, unspecified Study Quality: Adequate ECG Rhythm: Bradycardia Conclusions: - The left ventricular systolic function is normal. The calculated ejection fraction is 59% by biplane method. - There is mild mitral valve regurgitation. - There is mild dilatation of the ascending aorta measuring 4.00 cm. Findings Left Ventricle Normal left ventricular cavity size. There is normal left ventricular wall thickness. The left ventricular systolic function is normal. The calculated ejection fraction is 59% by biplane method. There is no evidence of regional wall motion abnormalities. Diastolic function is normal for age. LV peak GLS -19.5%. Right Ventricle Mildly increased right ventricular cavity size. There is normal right ventricular systolic function. Atria Both atria are normal in size. Aortic Valve There is a normal trileaflet aortic valve. There is no aortic valve stenosis. There is no aortic valve regurgitation. Mitral Valve The mitral valve appears normal. There is mild mitral valve regurgitation. There is no mitral valve stenosis. Pulmonic Valve The pulmonic valve is likely normal. Tricuspid Valve There is trace tricuspid valve regurgitation. There is no evidence of pulmonary hypertension. Great Vessels The aortic arch is normal in size. There is mild dilatation of the ascending aorta measuring 4.00 cm. Small plaque is seen in the sino tubular ridge. Venous The inferior vena cava is normal in size and collapses greater than 50% with inspiration. Pericardium/Pleural There is no evidence of pericardial effusion. Prior Study Comparison No significant change compared to prior study dated: 08/26/2022. Measurements 2D Linear Measurements IVSd: 0.96 0.6-0.9/0.6-1.0 cm LVIDd: 5.72 3.9-5.3/4.2-5.9 cm LVIDd Index: 2.83 2.4-3.2/2.2-3.1 cm/m2 LVIDs: 3.52 2.0-3.6 cm LVPWd: 0.85 0.7-1.1 cm LA Diam: 4.20 2.7-3.8/3.0-4.0 cm LAIDs Index: 2.08 1.5-2.3 cm/m2 LV Mass: 248.69 67-162/88-224 g LV Mass Index: 123.12 43-95/49-115 g/m2 LVOT Diam: 2.10 3.0+(-)1.3 cm 2D Systolic Function EF 4C: 57.20 >55% EF 2C: 58.30 >55% EF BiP: 58.90 >55% Mitral Valve MV Pk E: 0.60 MV PK A: 0.51 MV Decel Time: 227.00 E/A: 1.20 E'Lateral: 10.30 E'Medial: 7.18 E/E' Med: 8.40 E/E' Lat: 5.90 PHT: 66.00 MVA PHT: 3.33 Decel Lucas: 2.66 Aortic Valve AoV Pk Christophe: 1.29 AoV Mn Christophe: 0.86 AoV VTI: 0.27 AoV Pk Grad: 7.00 Aov Mn Grad: 3.00 BENNY Cont.VTI: 2.89 LVOT LVOT Pk Christophe: 1.12 LVOT Mn Christophe: 0.61 LVOT VTI: 0.23 LVOT Pk Grad: 5.00 LVOT Mn Grad: 2.00 LVOT Diam: 2.10 LVOT Area: 3.46 Diastolic Function MV Pk E: 0.60 MV Pk A: 0.51 E/A: 1.20 E'Medial: 7.18 E/E' Med: 8.40 E' Laterial: 10.30 E/E' Lat: 5.90 Right Ventricle TAPSE (mm): 20.80 TVS' Christophe: 11.10 Tricuspid Valve TR Pk Christophe: 1.30 TR Pk Grad: 7.00 RA Press: 3.00 RVSP: 10.00 Great Vessels Aorta Sinus of Valsalva: 3.32 2.0-3.5 cm Ao Asc: 4.00 2.1-3.4 cm Ao Arch: 3.60 Updated in Other Vendor System with Status of Final Dinesh Anaya MD electronically signed on 11/15/2023 2:49:34 PM with status of Final
== END ==
LOC: HO.CARD 09:06
PROVIDERS: Visit Provider Internal Medicine Cardiovascular Disease
DX: I71.20 Thoracic aortic aneurysm, without rupture, unspecified (principal)
CPT/HCPCS: 93306; 93356

== ENCOUNTER → 2023-11-15 09:12 | Outpatient (BNV) | payer OTHER, SELFPAY ==
[2022-01-01 06:57] VITALS: BP 128/68; BP 136/74; BMI 27.2
== END ==
PROVIDERS: Visit Provider Internal Medicine
DX: I34.0 Nonrheumatic mitral (valve) insufficiency (principal); I71.21 Aneurysm of the ascending aorta, without rupture
CPT/HCPCS: 93306; 93356

== ENCOUNTER 2023-11-16 15:05 | Outpatient (AMB) | payer OTHER, SELFPAY ==
[2022-01-01 06:57] VITALS: BP 128/68; BP 136/74; BMI 27.2
--- NOTE | 2023-11-16 15:17 | A.OFFVIS_ITS ---
Vital Signs 11/16/23 15:18 Height 5 ft 9 in Weight 196 lb 3.382 oz BMI 29.0 BP 140/70 H Blood Pressure Location Lt brachial Position Sitting Pulse 60 Pulse Source Monitor Intake Visit Reasons: 1 yr s/p echo Dyslexia Teacher Required: No Accompanied by: Spouse Allergies No Known Allergies Allergy (Verified 12/21/22 09:49) Medication List - Last Reconciled 11/16/23 by Addy Masterson MD aspirin 81 mg PO DAILY atorvastatin 80 mg PO DAILY metoprolol tartrate 25 mg See Protocol PO BID HPI Comments Details: Raymond comes for follow-up. Recent echocardiogram shows preserved LV ejection fraction with mildly dilated ascending aorta. He has no new cardiac symptoms. Denies any exertional chest pain. Unfortunately says since a open-heart surgery continues to have shoulder issues more prominent in the left shoulder with significant discomfort and inability to have complete range of motion. He denies any exertional chest pain or shortness of breath. Takes all his medications. No recent lipid panel in our chart system. Denies any prolonged palpitation or irregular heartbeat or lightheadedness. No heart failure symptoms. [facility] Medical History Elevated cholesterol Dilatation of aorta History of transesophageal echocardiography (EVAN) Myxoma of heart CAD (coronary artery disease) HTN (hypertension) Surgical History Hx of hemorrhoidectomy History of excision of pilonidal cyst H/O colonoscopy S/P CABG x 1 Stented coronary artery Social History Alcohol intake: current Alcohol intake frequency: does not drink Alcohol type: beer Patient Tobacco Use Status: Never used Tobacco Advance Directives Date on File: 05/29/21 service: Yes Current occupational status: employed Review of Systems Const Denies chills, Denies fatigue, Denies fever(s), Denies frequent falls, Denies weakness, Denies weight gain and Denies weight loss ENT Denies dizziness Card Denies chest pain, Denies leg edema, Denies lightheadedness, Denies palpitations, Denies dyspnea and Denies dyspnea on exertion Resp Denies cough, Denies dyspnea and Denies dyspnea on exertion GI Denies hematochezia Musc Denies abnormal gait, Denies muscle weakness, Denies numbness, Denies radiating pain into limb and Denies tingling Neuro Denies abnormal gait, Denies dizziness, Denies frequent falls, Denies numbness, Denies tingling and Denies weakness Endo Denies fatigue and Denies palpitations Physical Exam Vital Signs: Last Vital Signs Pulse 60 11/16/23 15:18 BP 140/70 H 11/16/23 15:18 BMI result Body Mass Index 29.0 Const General: cooperative, comfortable, no acute distress, alert, awake and Physically active Nutritional Appearance: average body habitus Orientation/consciousness: patient oriented x3 Neck Neck: Yes trachea midline, Yes supple and Yes no JVD Chest Chest palpation & inspection: other (Sternotomy wound has healed well with no discharge.) Resp Effort & Inspection: normal respiratory effort Auscultation: clear to auscultation bilaterally Cardio Jugular venous distension: no JVD Palpation: normal PMI Rate: regular rate Rhythm: regular rhythm Heart sounds: S1 normal heart sound present, S2 normal heart sound present, no click, no gallops and no murmurs Peripheral pulses: radial pulses present and ulnar radial pulses present GI Auscultation: normal bowel sounds Skin General skin exam: no rashes or lesions noted Neuro General: patient oriented x3 and no focal motor deficits Extrem General: Yes no clubbing, cyanosis or edema Office Procedures EKG Details: EKG shows normal sinus rhythm with first-degree AV block with prominent Q-wave in lead [address] changes 55175-[id number], Complete Assessment & Plan Assessment & Plan (1) CAD (coronary artery disease): Comment: follows w/[facility]. S/p CABGx1 2021. Some atypical left sided chest pain. Evaluated by cardiology. Has never needed SL NTG Code(s): I25.10 - Atherosclerotic heart disease of ruby coronary artery without angina pectoris Category: Medical Plan: CAD with single-vessel coronary artery bypass grafting along with stenting. Currently doing very well from cardiac perspective. No symptoms of angina at this point in time. Continue aggressive medical therapy. Continue low-dose aspirin therapy and high-intensity statin therapy. Target goal LDL closer to 60 mg/dL. Advise at least annual lipid panel. Will obtain the most recent lab profile from your office. Continue maintain activity level as tolerated. Continue aggressive blood pressure control which currently well optimized. (2) Myxoma of heart: Comment: Status post surgical resection July 2021 Code(s): D15.1 - Benign neoplasm of heart Category: Medical Plan: Prior history of myxoma without any recurrent evidence of tumors in the heart. Continue aspirin therapy. No other interventions required. (3) Thoracic aortic aneurysm: Code(s): I71.20 - Thoracic aortic aneurysm, without rupture, unspecified Category: Medical Plan: Mild thoracic aortic aneurysm which has remained stable. Continue monitor by echocardiogram on annual basis. Advised to avoid sudden strenuous isometric exercise. Continue aggressive blood pressure control and risk factor modification as in 1. Will follow up in the clinic in 1 year's time, sooner p.r.n.. Thank you for allowing me to partake in his care Orders: Orders CA echo transthoracic complete 1 Year I71.20 - Thoracic aortic aneurysm, without rupture, unspecified Referrals Orthopedics Referral M25.512 - Pain in left shoulder Coding Level of Care Code Est Pt Level 4 (58512) Diagnoses CAD (coronary artery disease) I25.10 Myxoma of heart D15.1 Thoracic aortic aneurysm I71.20 CPT Codes EKG - CPT: 58246-[id number], Complete ([id number])
[2023-11-16 15:18] VITALS: BP 140/70; PULSE 60; BMI 29.0
== END 2023-11-16 15:42 | disposition home or self-care (01) ==
PROVIDERS: PCP Physician Assistant; Visit Provider Internal Medicine Cardiovascular Disease
DX: I25.10 Atherosclerotic heart disease of native coronary artery without angina pectoris (principal); D15.1 Benign neoplasm of heart; I71.20 Thoracic aortic aneurysm, without rupture, unspecified
CPT/HCPCS: 93010; 99214

== ENCOUNTER → 2023-11-16 15:05 | Outpatient (BNVA) | payer OTHER, SELFPAY ==
[2022-01-01 06:57] VITALS: BP 128/68; BP 136/74; BMI 27.2
== END ==
PROVIDERS: PCP Physician Assistant; Visit Provider Internal Medicine Cardiovascular Disease
DX: I25.10 Atherosclerotic heart disease of native coronary artery without angina pectoris (principal); I71.20 Thoracic aortic aneurysm, without rupture, unspecified; D15.1 Benign neoplasm of heart
CPT/HCPCS: 93005; 99212

== ENCOUNTER 2023-12-14 10:46 | Outpatient (REF) | payer OTHER, SELFPAY ==
[2022-01-01 06:57] VITALS: BP 128/68; BP 136/74; BMI 27.2
--- NOTE | ~2023-12-14 | XR_ITS ---
EXAMINATION: XR SHOULDER LEFT 2 VIEWS CLINICAL INFORMATION: Pain in left shoulder M25.512. COMPARISON: XR Chest 05/28/2021 TECHNIQUE: AP neutral and transscapular views of the left shoulder. FINDINGS: The bones and soft tissues are normal. No fracture. Glenohumeral and acromioclavicular alignment is anatomic with normal joint space. No abnormal soft tissue calcifications. Partially visualized median sternotomy wires. Status post CABG. XR/XR shoulder LT min 2V IMPRESSION: No fracture or dislocation. Electronically signed by: Trevor Ornelas MD 02/02/2024 08:58 AM JOE
== END 2023-12-14 10:47 | disposition home or self-care (01) ==
LOC: HO.HOSX 10:46
PROVIDERS: Visit Provider Orthopaedic Surgery
DX: M25.512 Pain in left shoulder (principal); M25.812 Other specified joint disorders, left shoulder
CPT/HCPCS: 73030; 99202

== ENCOUNTER 2023-12-14 14:32 | Outpatient (AMB) | payer OTHER, SELFPAY ==
[2022-01-01 06:57] VITALS: BP 128/68; BP 136/74; BMI 27.2
[2023-12-14 14:38] VITALS: BMI 28.9
--- NOTE | 2023-12-14 14:38 | A.OFFVIS_ITS ---
Vital Signs 12/14/23 14:38 Height 5 ft 9 in Weight 196 lb BMI 28.9 Intake Visit Reasons: Left shoulder pain and weakness Intake Note: Raymond is a 68 a year old male who presents with complaints of progressively worsening left shoulder pain and weakness. The patient describes his pain as sharp and severe in nature. His pain began approximately 2 years ago after unde rgoing coronary artery bypass grafting surgery. The patient has failed the last 6 weeks of conservative treatment. He reports weakness when lifting his left hand above shoulder height. He has done physical therapy in the past which aggravated his pain. He has also tried Tylenol and aspirin which gave him minimal relief. He has had injections in the past which gave him no relief. Allergies No Known Allergies Allergy (Verified 12/14/23 14:41) Medication List - Last Reconciled 12/14/23 by Wilber Mendoza MD aspirin 81 mg PO DAILY atorvastatin 80 mg PO DAILY metoprolol tartrate 25 mg See Protocol PO BID PFSH Medical History Elevated cholesterol Dilatation of aorta History of transesophageal echocardiography (EVAN) Myxoma of heart CAD (coronary artery disease) HTN (hypertension) Surgical History Hx of hemorrhoidectomy History of excision of pilonidal cyst H/O colonoscopy S/P CABG x 1 Stented coronary artery Social History Alcohol intake: current Alcohol intake frequency: does not drink Alcohol type: beer Patient Tobacco Use Status: Never used Tobacco Advance Directives Date on File: 05/29/21 service: Yes Current occupational status: employed Physical Exam Vital Signs: BMI result Body Mass Index 28.9 Const Other: Well-nourished well-developed very friendly male awake alert and oriented x3 in no acute distress Extrem Other: Bilateral upper extremity examination shows good capillary refill, no skin lesions noted, normal sensation light touch Left shoulder examination shows decreased range of motion when compared to his right shoulder, 4 out of 5 strength with supraspinatus testing, positive impingement signs, tenderness over his acromioclavicular joint, no instability Results Reviewed Results Reviewed: X-rays of the patient's left shoulder show severe acromioclavicular joint narrowing, a type 3 acromion, no acute bony abnormalities Assessment & Plan Assessment & Plan (1) Left shoulder pain: Code(s): M25.512 - Pain in left shoulder Category: Medical Plan Mr. Ta presents with progressively worsening left shoulder pain and weakness most likely due to a full-thickness rotator cuff tear as well as imp ingement syndrome. I will send the patient for an MRI of his left shoulder for further evaluation. I will see him back once the MRI is completed to discuss the findings and treatment options. He will continue with his range of motion exercises in the meantime. Feel free to call me at any time should questions regarding his orthopedic management arise. Thank you very much for asking me to see this very friendly gentleman. I spent 20 minutes in reviewing the patient's records and imaging studies, seeing the patient and documenting in the medical record. Orders: Orders XR shoulder LT min 2V 12/14/23 M25.512 - Pain in left shoulder MR shoulder LT wo con Today M25.512 - Pain in left shoulder Medications: New tramadol 50 mg PO Q8H PRN 60 tabs 0RF pain Coding Level of Care Code New Pt Level 3 (59054) Complex EM visit Add On G2211 Diagnoses Left shoulder pain M25.512
== END 2023-12-14 15:01 | disposition home or self-care (01) ==
PROVIDERS: PCP Physician Assistant; Referring Provider Orthopaedic Surgery; Visit Provider Orthopaedic Surgery
DX: M25.512 Pain in left shoulder (principal)
CPT/HCPCS: 99203; G2211

== ENCOUNTER 2024-01-31 18:07 | Outpatient (REF) | payer OTHER, SELFPAY ==
[2022-01-01 06:57] VITALS: BP 128/68; BP 136/74; BMI 27.2
== END 2024-01-31 18:08 | disposition home or self-care (01) ==
LOC: HO.MRI 18:07
PROVIDERS: PCP Physician Assistant; Visit Provider Orthopaedic Surgery
DX: M25.512 Pain in left shoulder (principal)
CPT/HCPCS: 73221

== ENCOUNTER 2024-02-22 14:45 | Outpatient (AMB) | payer OTHER, SELFPAY ==
[2022-01-01 06:57] VITALS: BP 128/68; BP 136/74; BMI 27.2
--- NOTE | 2024-02-22 14:46 | A.OFFVIS_ITS ---
Vital Signs 02/22/24 14:52 Height 5 ft 9 in Weight 196 lb BMI 28.9 Intake Visit Reasons: Left shoulder pain Intake Note: Raymond is a 68 a year old male who presents with complaints of progressively worsening left shoulder pain and weakness. The patient describes his pain as sharp and severe in nature. His pain began approximately 2 years ago after undergoing coronary artery bypass grafting surgery. The patient has failed the last 6 weeks of conservative treatment. He reports weakness when lifting his left hand above shoulder height. He has done physical therapy in the past which aggravated his pain. He has also tried Tylenol and aspirin which gave him minimal relief. He has had injections in the past which gave him no relief. Allergies No Known Allergies Allergy (Verified 02/22/24 14:52) Medication List - Last Reconciled 02/22/24 by Wilber Mendoza MD aspirin 81 mg PO DAILY atorvastatin 80 mg PO DAILY metoprolol tartrate 25 mg See Protocol PO BID tramadol 50 mg PO Q8H PRN PFSH Medical History Elevated cholesterol Dilatation of aorta History of transesophageal echocardiography (EVAN) Myxoma of heart CAD (coronary artery disease) HTN (hypertension) Surgical History Hx of hemorrhoidectomy History of excision of pilonidal cyst H/O colonoscopy S/P CABG x 1 Stented coronary artery Social History Alcohol intake: current Alcohol intake frequency: does not drink Alcohol type: beer Patient Tobacco Use Status: Never used Tobacco Advance Directives Date on File: 05/29/21 service: Yes Current occupational status: employed Physical Exam Vital Signs: BMI result Body Mass Index 28.9 Const Other: Well-nourished well-developed very friendly male awake alert and oriented x3 in no acute distress Extrem Other: Bilateral upper extremity examination shows good capillary refill, no skin lesions noted, normal sensation light touch Left shoulder examination shows decreased range of motion when compared to his right shoulder, 4+ out of 5 strength with supraspinatus testing, positive impingement signs, tenderness over his acromioclavicular joint, no instability Results Reviewed Results Reviewed: MRI of the patient's left shoulder shows severe acromioclavicular joint narrowing, a type 3 acromion, signal change within the supraspinatus tendon due to rotator cuff tendinosis versus a small tear Assessment & Plan Assessment & Plan (1) Left shoulder pain: Code(s): M25.512 - Pain in left shoulder Category: Medical Plan Mr. Ta presents with progressively worsening left shoulder pain due to impingement syndrome, acromioclavicular joint arthritis and rotator cuff tendinosis versus a small tear. I had a lengthy discussion with the patient regarding the treatment options. At this point the patient has failed continued non operative treatments. The risks and benefits of left shoulder surgery were discussed at length with the patient. The patient is considering undergoing left shoulder surgery early next year. He will contact my office to pick a surgery date if he chooses to do so. Surgery will most likely involve left shoulder diagnostic arthroscopy with distal clavicle excision, acromioplasty and rotator cuff repair showed a full-thickness tear be found at the time of his surgery. The patient will continue with his range of motion exercises in the meantime. Feel free to call me at any time should questions regarding his orthopedic management arise. I spent 21 minutes in reviewing the patient's records and imaging studies, s eeing the patient and documenting in the medical record. Coding Level of Care Code Est Pt Level 3 (45859) Complex EM visit Add On G2211 Diagnoses Left shoulder pain M25.512
[2024-02-22 14:52] VITALS: BMI 28.9
== END 2024-02-22 15:29 | disposition home or self-care (01) ==
PROVIDERS: PCP Physician Assistant; Visit Provider Orthopaedic Surgery
DX: M25.512 Pain in left shoulder (principal)
CPT/HCPCS: 99213; G2211

== ENCOUNTER → 2024-02-22 14:45 | Outpatient (BNVA) | payer OTHER, SELFPAY ==
[2022-01-01 06:57] VITALS: BP 128/68; BP 136/74; BMI 27.2
== END ==
PROVIDERS: PCP Physician Assistant; Visit Provider Orthopaedic Surgery
DX: M25.512 Pain in left shoulder (principal)
CPT/HCPCS: 99212

== ENCOUNTER 2024-03-21 08:21 | Outpatient (AMB) | payer OTHER, SELFPAY ==
[2022-01-01 06:57] VITALS: BP 128/68; BP 136/74; BMI 27.2
[2024-03-14 11:08] VITALS: BP 128/68; BP 136/74; BMI 27.2
[2024-03-21 08:25] VITALS: BP 200/90; PULSE 63; BMI 29.9
--- NOTE | 2024-03-21 08:25 | MHC.OFFVIS ---
Vital Signs 03/21/24 08:25 Height 5 ft 9 in Weight 202 lb 13.204 oz BMI 29.9 BP 200/90 H Blood Pressure Location Lt brachial Position Sitting Pulse 63 Intake Visit Reasons: NS pt/ [facility]- preop for shoulder surgery Facsimile Operator Required: No Allergies No Known Allergies Allergy (Verified 03/21/24 08:27) Medication List - Last Reconciled 03/21/24 by Parvin Lorenz, FACILITIES DIRECTOR-C amlodipine 5 mg PO DAILY aspirin 81 mg PO DAILY atorvastatin 80 mg PO DAILY metoprolol succinate ER 25 mg PO DAILY HPI HPI NS pt/ [facility]- preop for shoulder surgery: Details: Raymond is a 68-year-old male with past medical history of hypertension, hyperlipidemia, mildly dilated ascending aorta, CAD with RCA stent placed 05/2021 then finding of cardiac myxoma with surgical resection and single-vessel coronary artery bypass grafting 07/2021, arthur to LAD who presents for follow-up and preop cardiovascular clearance for left shoulder surgery. Today he reports he has been doing well with no concerning symptoms. He does have chronic vague left lateral chest wall discomfort which bothers him most during the night. This sensation has been present since his surgery. He has no other chest discomfort. No shortness of breath, PND, orthopnea or edema. No heart palpitations, lightheadedness, presyncope, syncope. He reports doing only light physical activity. Compliant with meds. Took meds about a 1/2 hour prior to this appointment. Has surgery scheduled for 04/21/2024. [facility] Medical History Elevated cholesterol Dilatation of aorta History of transesophageal echocardiography (EVAN) Myxoma of heart CAD (coronary artery disease) HTN (hypertension) Surgical History Hx of hemorrhoidectomy History of excision of pilonidal cyst H/O colonoscopy S/P CABG x 1 Stented coronary artery Social History Alcohol intake: current Alcohol intake frequency: does not drink Alcohol type: beer Patient Tobacco Use Status: Never used Tobacco Advance Directives Date on File: 05/29/21 service: Yes Current occupational status: employed Review of Systems Const All systems reviewed & are unremarkable except as noted in HPI and below ENT Denies dizziness Card Details: left lateral chest wall vague discomfort - present since surgery 2021 Denies chest pain, Denies chest pain at rest, Denies chest pain with activity, Denies rapid heart rate, Denies pedal edema, Denies edema, Denies leg edema, Denies lightheadedness, Denies palpitations, Denies dyspnea, Denies dyspnea on exertion and Denies orthopnea Resp Denies cough, Denies dyspnea and Denies dyspnea on exertion GI Denies hematochezia and Denies change in stool character Musc Details: Left shoulder discomfort with ROM Denies abnormal gait, Reports limited range of motion, Denies muscle cramps, Denies muscle weakness, Denies numbness, Denies radiating pain into limb, Denies stiffness and Denies tingling Neuro Denies abnormal gait, Denies dizziness, Denies numbness and Denies tingling Endo Denies palpitations Physical Exam Vital Signs: Last Vital Signs Pulse 63 03/21/24 08:25 BP 200/90 H 03/21/24 08:25 BMI result Body Mass Index 29.9 Const General: cooperative, healthy appearing, comfortable and no acute distress Orientation/consciousness: patient oriented x3 Neck Neck: Yes normal visual inspection and Yes no JVD Chest Chest palpation & inspection: normal inspection of the chest Resp Effort & Inspection: normal respiratory effort Auscultation: clear to auscultation bilaterally, no rales and no rhonchi Cardio Rate: regular rate Rhythm: regular rhythm Heart sounds: S1 normal heart sound present, S2 normal heart sound present, no murmurs and no rubs Neuro General: patient oriented x3 Extrem General: Yes normal to inspection, No no pedal edema and No calf tenderness Psych Appearance: grossly normal Mental Status: mental status grossly normal Speech and movement: Normal speech and movement present Office Procedures EKG Details: Today, read by me, SR, nonspecific ST abn, rate 63, QTc 429ms [id number], Complete Assessment & Plan Assessment & Plan (1) CAD (coronary artery disease): Comment: follows w/[facility]. S/p CABGx1 2021. Some atypical left sided chest pain. Evaluated by cardiology. Has never needed SL NTG Code(s): I25.10 - Atherosclerotic heart disease of [place] coronary artery without angina pectoris Category: Medical Plan: History of CAD with RCA stent placement 05/2021. He then had findings of cardiac myxoma and had surgical resection with single-vessel coronary artery bypass grafting 07/2021, arthur to LAD. An exercise stress test 11/23/2022 showed exercise 7 minutes with euob-xi-[id number] shortness of breath, isolated PVCs and no EKG changes of ischemia. Last echo 11/15/2023 showed EF 59%, lyhu-ll-ecrzazkj MR, ascending aorta 4 cm. EKG done today shows sinus rhythm with no acute ST or T-wave abnormalities, rate 63. He denies any anginal sounding symptoms. He still has some left lateral chest wall discomfort since the time of surgery. Continue aspirin indefinitely. Continue atorvastatin with ideal LDL goal less than 70. Continue metoprolol for heart rate and blood pressure control. Blood pressure is noted to be very elevated today. He believes he has some white coat syndrome. Home blood pressures reported as being in the 130s to 140s systolic. Will be adding amlodipine 5 mg daily. Signs and symptoms of angina reviewed with him. Emergency care if ever needed for symptoms. Will keep his office visit scheduled 1 year from his last, due 10/2024 (2) Myxoma of heart: Comment: Status post surgical resection July 2021 Code(s): D15.1 - Benign neoplasm of heart Category: Medical Plan: As above (3) Hypertension: Code(s): I10 - Essential (primary) hypertension Category: Medical Plan: Elevated today. Rechecked at end of visit, blood pressure 190/92. He says this is atypical for him. Currently asymptomatic. Took his meds 1/2 hour prior to this visit. He believes he has some white coat syndrome. He denies feeling anxious at this time. Home blood pressures reported as being 130-140 systolic. This is still mildly elevated. Will add amlodipine 5 mg daily. Instructed on home blood pressure checks over the next week. Office blood pressure check here in 7-10 days. (4) Thoracic aortic aneurysm: Code(s): I71.20 - Thoracic aortic aneurysm, without rupture, unspecified Category: Medical Plan: Last echo 9 05/12/2023 showed ascending aorta 4 cm. Blood pressure elevated today and amlodipine being added. Repeat echo is being planned for next fall. (5) Left shoulder pain: Code(s): M25.512 - Pain in left shoulder Category: Medical Plan: Impingement left shoulder. Surgery being planned. (6) Preop cardiovascular exam: Code(s): Z01.810 - Encounter for preprocedural cardiovascular examination Category: Medical Plan: Patient is planning for arthroscopic surgery left shoulder for impingement, with Dr. Mendoza on 11/15/2023. Blood pressure elevated today and this is being addressed. Will have him back in 7-10 days for blood pressure recheck. Assuming it is in normal range then he can proceed with his planned surgery with a low to intermediate cardiac risk. Aspirin can be held as needed prior to surgery and restart as soon as cleared by surgeon to do so. Call/consult Cardiology if needed. Plan Time spent on chart review, documentation, interview and assessment Medications: New amlodipine 5 mg PO DAILY 30 tabs 5RF Coding Level of Care Code Est Pt Level 4 (00752) Complex EM visit Add On G2211 Diagnoses CAD (coronary artery disease) I25.10 Myxoma of heart D15.1 Hypertension I10 Thoracic aortic aneurysm I71.20 Left shoulder pain M25.512 Preop cardiovascular exam Z01.810 CPT Codes EKG - CPT: 20635-[id number], Complete ([id number]) Time Spent (min) 36
--- OUTSIDE RECORDS SUMMARY | 2024-03-21 08:47 | XMS_ITS ---
Author Organization [facility] Address [address] [place] [address] Care Team Providers Care Manager Of Data Name Role Phone Seun Cormier Primary Care Provider Un available Trevor Myers [phone] ALLERGIES No Known Allergies REASON FOR VISIT Patient presents today for a SCREENING COLON MEDICATIONS Medication SIG (Take, Route, Frequency, Duration) Notes Start Date End Date Status Aspirin 81 81 MG 1 tablet Orally Once a day for 30 day(s) Active Ticagrelor 90 MG 1 tablet Orally Twic e a day for 30 day(s) Not-Taking Losartan Potassium 25 MG TAKE 1 TABLET B Y MOUTH DAILY Oral for 90 Active Atorvastatin Calcium 80 MG TAKE 1 TABLET BY MOUTH DAILY AT BEDTIME Oral for 30 Active Nitroglycerin 0.4 MG as directed Sublingual Active Metoprolol Succinate ER 25 MG 1 tablet Orally Once a day for 30 day(s) Active Ferrous Sulfate 324 MG 1 tablet Orally daily Active PROBLEMS Problem Type ICD Code Onset Dates Problem Status W/U Status Risk SNOMED Code Notes Problem Rectal bleeding (K62.5) Active confirmed 26282032 VITAL SIGNS BMI 27.32 kg/m2 09/23/2022 Blood pressure systolic 000 mm Hg 09/24/19 23 Blood pressure diastolic 00 mm Hg 023 Height 69 in 09/23/2022 Temperature 98.8 degrees Fahrenheit 09/24/19 23 Weight 185 lbs 09/23/2022 Encounters Encounter Location Date Provider Diagnosis [facility] [address] [place] [address] 09/23/2022 Tervor Myers Rectal bleeding K62.5 and Heme + stool R19.5 ASSESSMENTS Encounter Date Diagnosis Assessment Notes Treatment Notes Treatment Clinical Notes 09/23/2022 Rectal bleeding (ICD-10 - K62.5) Stop Iron for 1 week before the colonoscopy Do not take aspirin on the morning of the colonoscopy. 09/23/2022 Heme + stool (ICD-10 - R19.5) Will need cardiology clearance from Dr. Masterson after your 10/2022 visit with him PLAN OF TREATMENT Treatment Notes Assessment Notes Rectal bleeding Stop Iron for 1 week before the colonoscopy Do not take aspirin on the morning of the colonoscopy. Heme + stool Will need cardiology clearance from Dr. Masterson after your 10/2022 visit with him Future Test Test Name Order Date COLONOSCOPY 09/23/2022 Next Appt Details Follow Up: prn, Reason: Progress Notes * Examination Category Sub-Category Detail Notes General Examination GENERAL APPEARANCE: pleasant , well nourished, well developed, in no acute distress HEAD: EYES: sclera non-icteric EARS: NOSE: THROAT: NECK/THYROID: no cervical lymphade nopathy, neck supple HEART: S1, S2 normal CHEST: LUNGS: clear to auscultatio n bilaterally ABDOMEN: normal bowel sounds, no guarding or rigidity, no guarding or rigidity, no masses palpable, soft, nontender, nondistended NEUROLOGIC: alert and oriented SKIN: nonjaundiced, no spi isrrael angiomata EXTREMITIES: no edema PERIPHERAL PULSES: BACK: BREASTS: MUSCULOSKELETAL: MALE GENITOURINARY: LYMPH NODES: RECTAL EXAM: FEMALE GENITOURINARY: ORAL CAVITY: mucosa moist
--- OUTSIDE RECORDS SUMMARY | 2024-03-21 08:48 | XMS_ITS ---
Author Organization [facility] Address [address] [place] [address] Care Team Providers Care Surface Grinding Machine Hand Name Role Phone Seun Cormier Primary Care Provider Un available Trevor Myers Unavailable [phone] REASON FOR VISIT Rectal bleeding,heme + stool PROBLEMS Problem Type ICD Code Onset Dates Problem Status W/U Status Risk SNOMED Code Notes Problem Diverticulosis of large intestine without perforation or abscess without bleeding (K57.30) Active confirmed Diverticul ar disease of colon (641294354) Encounters Encounter Location Date Provider Diagnosis [facility] [address] [place] [address] [phone] 12/23/2022 Trevor Myers Diverticulosis of large intestine without perforation or abscess without bleeding K57.30 ; Other hemorrhoids K64.8 ; GI bleed K92.2 and Heme + stool R19.5 ASSESSMENTS Encounter Date Diagnosis Assessment Notes Treatment Notes Treatment Clinical Notes 12/23/2022 Diverticulosis of large intestine without perforation or abscess without bleeding (ICD-10 - K57.30) 12/23/2022 Other hemorrhoids (ICD-10 - K64.8) 12/23/2022 GI bleed (ICD-10 - K92.2) 12/23/2022 Heme + stool (ICD-10 - R19.5) PLAN OF TREATMENT No Information
--- OUTSIDE RECORDS SUMMARY | 2024-03-21 08:48 | XMS_ITS | Patient Health Record ---
Author Organization [facility] Address [address] [place] [address] Care Team Providers Care Tobacco Flavorer Name Role Phone Seun Cormier Primary Care Provider Un available Trevor Myers [phone] ALLERGIES No Known Allergies REASON FOR REFERRAL No Information MEDICATIONS Medication SIG (Take, Route, Frequency, Duration) Notes Start Date End Date Status Metoprolol Succinate ER 25 MG 1 tablet Orally Once a day for 30 day(s) Active Aspirin 81 81 MG 1 tablet Orally Once a day for 30 day(s) Active Ferrous Sulfate 324 MG 1 tablet Orally daily Active Ticagrelor 90 MG 1 tablet Orally Twic e a day for 30 day(s) Not-Taking Losartan Potassium 25 MG TAKE 1 TABLET B Y MOUTH DAILY Oral for 90 Active Atorvastatin Calcium 80 MG TAKE 1 TABLET BY MOUTH DAILY AT BEDTIME Oral for 30 Active Nitroglycerin 0.4 MG as directed Sublingual Active IMMUNIZATIONS Vaccine Route Administration Date Status Comme nts Influenza Unknown 12/23/2020 Administered Influenza Unknown 01/13/2022 Administered SOCIAL HISTORY Sex Assigned At : Social History Observation Description Sex Assigned At Unknown PROBLEMS Problem Type ICD Code Onset Dates Problem Status W/U Status Risk SNOMED Code Notes Problem Encounter for screening for malignant neoplasm of colon (Z12.11) Active confirmed 672861002 Problem Encounter for screening for malignant neoplasm of rectum (Z12.12) Active confirmed Screening for malignant neoplasm of rectum (248082851) Problem Preprocedural examination (Z01.818) Active confirmed 410744138 Problem Bleeding per rectum (K62.5) Active confirmed Bleeding per rectum (91195435) Problem Heme + stool (R19.5) Active confirmed Abnormal feces (002538883) Problem Rectal bleeding (K62.5) Active confirmed 51809726 Problem Diverticulosis of large intestine without perforation or abscess without bleeding (K57.30) Active confirmed Diverticul ar disease of colon (828426897) PLAN OF TREATMENT Future Test Test Name Order Date COLONOSCOPY 07/10/2021 COLONOSCOPY 09/23/2022 Insurance Providers Payer Name Payer Address Payer Phone Subscriber Number Group Number Insured Name Patient Relationship to Insured Coverage Start Date Coverage End Date FOR[facility]LY [facility] [employer] [address] [place] [address] [id number] ROBSON JACKSON Self - patient is the insured MEDICAL (GENERAL) HISTORY Medical History History ICD Code Denies NE,DM,CVA,Lung disease,renal dise ase Colonoscopy with Dr. Deep ramirez at [facility] at age approximately 52--this was reportedly negative according to the patient Coronary artery disease--tiffanie nt placed in 05/2021--started on Br[facility] Cardiology-Dr. 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 07/2021
== END 2024-03-21 09:19 | disposition home or self-care (01) ==
PROVIDERS: PCP Physician Assistant; Visit Provider Nurse Practitioner Family
DX: I25.10 Atherosclerotic heart disease of native coronary artery without angina pectoris (principal); D15.1 Benign neoplasm of heart; I10 Essential (primary) hypertension; I71.20 Thoracic aortic aneurysm, without rupture, unspecified; M25.512 Pain in left shoulder; Z01.810 Encounter for preprocedural cardiovascular examination
CPT/HCPCS: 93010; 99214; G2211

== ENCOUNTER → 2024-03-21 08:21 | Outpatient (BNVA) | payer OTHER, SELFPAY ==
[2024-03-14 11:08] VITALS: BP 128/68; BP 136/74; BMI 27.2
== END ==
PROVIDERS: PCP Physician Assistant; Visit Provider Nurse Practitioner Family
DX: Z01.810 Encounter for preprocedural cardiovascular examination (principal); I25.10 Atherosclerotic heart disease of native coronary artery without angina pectoris; I10 Essential (primary) hypertension; I71.20 Thoracic aortic aneurysm, without rupture, unspecified; D15.1 Benign neoplasm of heart; M25.512 Pain in left shoulder
CPT/HCPCS: 93005; 99212

== ENCOUNTER → 2024-04-04 09:09 | Outpatient (BNVA) | payer OTHER, SELFPAY ==
[2024-03-14 11:08] VITALS: BP 128/68; BP 136/74; BMI 27.2
== END ==
PROVIDERS: PCP Physician Assistant; Visit Provider Nurse Practitioner Family

== ENCOUNTER 2024-04-21 06:50 | Day surgery (SDC) | payer OTHER, SELFPAY ==
[2022-01-01 06:57] VITALS: BP 128/68; BP 136/74; BMI 27.2
[2024-03-14 11:08] VITALS: BP 128/68; BP 136/74; BMI 27.2
[2024-04-12 10:13] VITALS: BP 159/85; PULSE 66; RESP 18; O2SAT 94; BMI 29.1
[2024-04-21] VITALS (9 sets, daily range): BP systolic 105–132; BP diastolic 56–77; PULSE 57–81; RESP 16–18; TEMP 36.2–36.8; O2SAT 94–100; BMI 27.4; BMI 28.7
--- NOTE | 2024-04-21 07:55 | P.CONAN_ITS ---
Documented by User: Unique Luther NP 04/20/24 13:43 HPI - Anesthesia Eval Consult details Narrative: 68yo M for Left Shoulder Arthroscopy,clavical excision,acromiplasty,rotator cuff repair PAT 04/12/[address] Baldwin Follows [facility] cardiology for CAD s/p CABG/stent (2021), LA myxoma, AAA (4cm). Cardiac optimized per 02/2024 office visit note PMFSH Active Problems Active Problems: All Active Problems Preop cardiovascular exam (Acute) Left shoulder pain (Acute) Thoracic aortic aneurysm (Acute) Hypertension (Acute) Myxoma of heart (Acute) CAD (coronary artery disease) (Acute) Past Medical History Medical History (Updated 03/21/24 @ 09:22 by VIANNEY KothariC) Elevated cholesterol Dilatation of aorta History of transesophageal echocardiography (EVAN) Myxoma of heart CAD (coronary artery disease) HTN (hypertension) Family History Family history of problems with anesthesia: No Surgical History Surgical History (Updated 04/12/24 @ 10:39 by Megan Ferreira RN) Hx of hemorrhoidectomy History of excision of pilonidal cyst H/O colonoscopy S/P CABG x 1 Stented coronary artery History of Problems with Anesthesia: No Social History Social History Are you a primary associate director career services to a significant other at home: No Do you presently have visiting nurse or other home services: No Alcohol intake: current Alcohol intake frequency: a few times a month Alcohol type: beer Patient Tobacco Use Status: Never used Tobacco Use of substances other than those prescribed or required for medical reasons: No Have you been hit, kicked, punched, or otherwise hurt by someone within the past year? If so, by whom?: No Are you DNR?: No Advance Directives: Yes Advance Directives Information Provided: No Advance Directives on File: Yes Advance Directives Date on File: 05/29/21 Nutrition Risks: No Nutritional Risk Poor oral hygiene: Yes (crowns upper and lower, bridges x 2-upper and lower) service: Yes Current occupational status: employed Meds Allergies Allergy/AdvReac Type Severity Reaction Status Date / Time No Known Allergies Allergy Verified 04/21/24 07:03 Active Medications: Current Medications Cefazolin Sodium/Dextrose (Ancef) 2 gm in 50 mls @ 100 mls/hr IV PREOP ONE Stop: 04/21/24 05:42 Home Medications ?Medication ?Instructions ?Recorded ?Confirmed ?Last Taken ?Type metoprolol succinate 25 mg 25 mg PO DAILY 03/21/24 04/21/24 04/21/24 05:15 History tablet,extended release 24 hr amlodipine 10 mg tablet 10 mg PO BEDTIME 04/12/24 04/21/24 04/21/24 05:15 History atorvastatin 80 mg tablet 80 mg PO BEDTIME 04/12/24 04/21/24 Unknown History cholecalciferol (vitamin D3) 50 50 mcg PO DAILY 04/12/24 04/21/24 Unknown History mcg (2,000 unit) capsule (Vitamin D3) diphenhydramine 25 2 tab PO BEDTIME 04/12/24 04/21/24 Unknown History mg-acetaminophen 500 mg tablet (Tylenol PM Extra Strength) ferrous sulfate 324 mg (65 mg 324 mg PO Q OTHER DAY 04/12/24 04/21/24 Unknown History iron) tablet,delayed release multivitamin 1 tab PO DAILY 04/12/24 04/21/24 Unknown History tramadol 50 mg tablet 50 mg PO Q8H PRN pain 04/12/24 04/21/24 Unknown History Exam Height,Weight and Vital Signs: Height 5 ft 9 in Weight 89.358 kg Last Vital Signs Pulse 66 04/12/24 10:13 Resp 18 04/12/24 10:13 BP 159/85 H 04/12/24 10:13 Pulse Ox 94 04/12/24 10:13 O2 Del Method Room Air 04/12/24 10:13 Pertinent Lab Results Pertinent Lab Results: Outside [facility] 03/2024 [place] Narrative Narrative: ECHO 2023 Conclusions: - The left ventricular systolic function is normal. The calculated ejection fraction is 59% by biplane method. - There is mild mitral valve regurgitation. - There is mild dilatation of the ascending aorta measuring 4.00 cm. EKG 02/2024 Details: Today, read by me, SR, nonspecific ST abn, rate 63, QTc 429ms Assessment and Plan Final Anesthetic Review Family History of Problems with Anesthesia: No History of Problems with Anesthesia: No Documented by User: Radha Tomlin DO 04/21/24 07:56 [facility] Past Medical History Medical History (Updated 03/21/24 @ 09:22 by Parvin Lorenz NP-C) Elevated cholesterol Dilatation of aorta History of transesophageal echocardiography (EVAN) Myxoma of heart CAD (coronary artery disease) HTN (hypertension) Family History Family history of problems with anesthesia: No Surgical History Surgical History (Updated 04/12/24 @ 10:39 by Megan Ferreira RN) Hx of hemorrhoidectomy History of excision of pilonidal cyst H/O colonoscopy S/P CABG x 1 Stented coronary artery History of Problems with Anesthesia: No Social History Social History Are you a primary associate director career services to a significant other at home: No Do you presently have visiting nurse or other home services: No Alcohol intake: current Alcohol intake frequency: a few times a month Alcohol type: beer Patient Tobacco Use Status: Never used Tobacco Use of substances other than those prescribed or required for medical reasons: No Have you been hit, kicked, punched, or otherwise hurt by someone within the past year? If so, by whom?: No Are you DNR?: No Advance Directives: Yes Advance Directives Information Provided: No Advance Directives on File: Yes Advance Directives Date on File: 05/29/21 Nutrition Risks: No Nutritional Risk Poor oral hygiene: Yes (crowns upper and lower, bridges x 2-upper and lower) service: Yes Current occupational status: employed Meds Allergies Allergy/AdvReac Type Severity Reaction Status Date / Time No Known Allergies Allergy Verified 04/21/24 07:03 Home Medications ?Medication ?Instructions ?Recorded ?Confirmed ?Last Taken ?Type metoprolol succinate 25 mg 25 mg PO DAILY 03/21/24 04/21/24 04/21/24 05:15 History tablet,extended release 24 hr amlodipine 10 mg tablet 10 mg PO BEDTIME 04/12/24 04/21/24 04/21/24 05:15 History atorvastatin 80 mg tablet 80 mg PO BEDTIME 04/12/24 04/21/24 Unknown History cholecalciferol (vitamin D3) 50 50 mcg PO DAILY 04/12/24 04/21/24 Unknown History mcg (2,000 unit) capsule (Vitamin D3) diphenhydramine 25 2 tab PO BEDTIME 04/12/24 04/21/24 Unknown History mg-acetaminophen 500 mg tablet (Tylenol PM Extra Strength) ferrous sulfate 324 mg (65 mg 324 mg PO Q OTHER DAY 04/12/24 04/21/24 Unknown History iron) tablet,delayed release multivitamin 1 tab PO DAILY 04/12/24 04/21/24 Unknown History tramadol 50 mg tablet 50 mg PO Q8H PRN pain 04/12/24 04/21/24 Unknown History Exam Exam Date and Time: 04/21/24 0755 Height,Weight and Vital Signs: Height 5 ft 9 in Weight 89.358 kg Last Vital Signs Pulse 66 04/12/24 10:13 Resp 18 04/12/24 10:13 BP 159/85 H 04/12/24 10:13 Pulse Ox 94 04/12/24 10:13 O2 Del Method Room Air 04/12/24 10:13 Vital Signs Pulse Rate 66 04/12/24 10:13 Respiratory Rate 18 04/12/24 10:13 Blood Pressure 159/85 H 04/12/24 10:13 Pulse Oximetry 94 04/12/24 10:13 Oxygen Delivery Method Room Air 04/12/24 10:13 Temperature 98.2 F 04/21/24 07:11 Pulse Rate 70 04/21/24 07:11 Respiratory Rate 18 04/21/24 07:11 Blood Pressure 132/77 04/21/24 07:11 Pulse Oximetry 95 04/21/24 07:11 Oxygen Delivery Method Room Air 04/21/24 07:11 Airway Mallampati Class: II TM Dist: >3cm Neck ROM: Full Loose/Missing/Broken Teeth: No (patient denies any loose or broken teeth) Heart: S1S2 Lungs: CTAB Assessment and Plan Assessment Anesthesia Assessment: Anesthesia Plan Discussed and Chart Reviewed Final Anesthetic Review Family History of Problems with Anesthesia: No History of Problems with Anesthesia: No NPO: Yes ASA Class: II Final Preanesthetic Review: No Changes in Pt Med Stat, Meds/Allgs Chart Reviewed, Consent Obtained/Reviewed and Anes Risks/Benef Reviewed Patient Risk: Low Procedure Risk: Intermediate Anesthetic Plan Anesthetic Plan: GA, Regional Block (left brachial plexus block) and Agree w/ Assess. and Plan Disposition: Standard PACU
[2024-04-21] MEDS: ceFAZolin Sodium/Dextrose,Iso 2 GM/50 ML PIGGYBACK IV (09:16)
[2024-04-21] MEDS: Acetaminophen 1,000 MG/100 ML PIGGYBACK 400 MG IV (09:22)
--- NOTE | 2024-04-21 10:41 | P.BOP_ITS ---
Brief Operative Note Date of Service: 04/21/24 Pre-op diagnosis: Left shoulder impingement syndrome, left shoulder acromioclavicular joint arthritis, left shoulder adhesive capsulitis Post-op diagnosis: same Procedure: Left shoulder diagnostic arthroscopy with arthroscopic left shoulder distal clavicle excision, left shoulder arthroscopic acromioplasty, left shoulder arthroscopic anterior capsular release, left shoulder manipulation under anesthesia Implants: none Surgeon: Wilber Mendoza MD Anesthesia: GETA and regional Was an Physical Damage Appraiser used for this Procedure?: No Estimated blood loss (mL): 10 Pathology: none sent Condition: stable Disposition: PACU
--- NOTE | 2024-04-21 10:43 | P.OP_ITS ---
Operative Note Operative Note Date of Service: 04/21/24 Narrative: After the patient was identified as Raymond Ta and his left shoulder was initialed by myself the patient was brought to the holding area where a left shoulder interscalene regional block was performed by the anesthesiologist in routine fashion. The patient was then brought to the operating room where general anesthesia was induced by the anesthesiologist in routine fashion. The patient was given 2 g of IV Ancef preoperatively for infection prophylaxis. Examination under anesthesia of the patient's left shoulder showed decreased range of motion when compared to the right shoulder. The patient's left shou lder had forward flexion to 140 degrees compared to 170 degrees, external rotation to 30 degrees compared to 60 degrees, and internal rotation to 50 degrees compared to 60 degrees. The patient was gently positioned in the beach chair position with all bony prominences well padded. The patient's left shoulder region and upper extremity were prepped and draped in sterile fashion. A formal time-out was completed. A #11 scalpel blade was used to make a posterior portal 2 cm inferior and 1 cm medial to the posterolateral corner of the acromion. Blunt trocar technique was used to enter the glenohumeral joint in routine fashion. An anterior portal was made just lateral to the coracoid process after proper positioning was confirmed using a spinal needle. Diagnostic arthroscopy showed minimal degenerative changes of the glenoid and humeral head articular surfaces. There was no evidence of rotator cuff tearing. There was no evidence of injury to the biceps tendon or its insertion onto the glenoid. There was inflammation of the anterior joint capsule consistent with adhesive capsulitis. The ArthroCare Wand was then used to perform an anterior capsular release between the inferior border of the biceps tendon and the superior border of the subscapularis tendon. The arthroscope was then placed from the posterior portal into the subacromial space. A lateral portal was made 2 fingerbreadths lateral to the anterior lateral corner of the acromion. The ArthroCare Wand was used to ablate soft tissues along the undersurface of the acromion as well as to excise the coracoacromial ligament. There was a sharp spur along the undersurface of the acromion which was removed using the hooded bur. The arthroscope was then placed into the lateral portal and the acromioplasty was completed with the bur in the posterior portal using the posterior aspect of the acromion as a cutting block. The ArthroCare Wand was then brought in through the anterior portal and was used to ablate soft tissues along the acromioclavicular joint and distal clavicle. The posterior and superior ligamentous structures were left intact. A distal clavicle excision of 8 mm was performed using the hooded bur. Any remaining bursal tissue was removed using the arthroscopic shaver. The subacromial space was irrigated and then drained. All arthroscopic instruments were removed. A gentle manipulation under anesthesia was then performed. Full passive range of motion was easily attained. The 3 portals were closed with 3-0 nylon interrupted suture. The subacromial space was injected with Marcaine. Dry sterile dressing was placed over all incisions. The patient's left upper extremity was placed into a sling. The patient was awoken and extubated in the operating room. The patient was transferred to the recovery room in stable condition.
[2024-04-21] MEDS: cefTRIAXone sodium 1 GM VIAL IVPUSH (10:49)
== END 2024-04-21 12:14 | disposition home or self-care (01) ==
PROVIDERS: PCP Physician Assistant; Visit Provider Orthopaedic Surgery
PROC: (CPT 29805; principal; 2024-04-21 09:00)
DX: M75.42 Impingement syndrome of left shoulder (principal); M75.02 Adhesive capsulitis of left shoulder; M19.012 Primary osteoarthritis, left shoulder; I10 Essential (primary) hypertension; I25.10 Atherosclerotic heart disease of native coronary artery without angina pectoris; Z95.1 Presence of aortocoronary bypass graft; Z95.5 Presence of coronary angioplasty implant and graft; Z79.82 Long term (current) use of aspirin; Z79.899 Other long term (current) drug therapy; Z98.890 Other specified postprocedural states
CPT/HCPCS: 29824; 29825; 29826; J0131; J0171; J0690; J0696; J1100; J1885; J2003; J2250; J2405; J2704; J2795; J3010

== ENCOUNTER → 2024-04-21 06:50 | Outpatient (BNV) | payer OTHER, SELFPAY ==
[2024-03-14 11:08] VITALS: BP 128/68; BP 136/74; BMI 27.2
== END ==
PROVIDERS: PCP Physician Assistant; Visit Provider Orthopaedic Surgery
DX: M75.42 Impingement syndrome of left shoulder (principal); M19.012 Primary osteoarthritis, left shoulder; M75.02 Adhesive capsulitis of left shoulder
CPT/HCPCS: 29824; 29826

== ENCOUNTER 2024-05-04 10:18 | Outpatient (AMB) | payer OTHER, SELFPAY ==
[2022-01-01 06:57] VITALS: BP 128/68; BP 136/74; BMI 27.2
[2024-03-14 11:08] VITALS: BP 128/68; BP 136/74; BMI 27.2
[2024-05-04 10:34] VITALS: BMI 28.6
--- NOTE | 2024-05-04 10:34 | MHC.OFFVIS ---
Vital Signs 05/04/24 10:34 Height 5 ft 9 in Weight 194 lb BMI 28.6 Intake Visit Reasons: PO LT shoulder 04/21/24 DR Intake Note: Raymond is a 68 year old male who presents with complaints of mild intermittent discomfort in his left shoulder after undergoing left shoulder arthroscopic surgery on 04/21/2024. He is no longer taking narcotics for his discomfort. He continues with his home stretching program. He denies any fevers or chills. He takes Tylenol as needed for his discomfort. Allergies No Known Allergies Allergy (Verified 05/04/24 10:42) Medication List - Last Reconciled 05/04/24 by Wilber Mendoza MD amlodipine 10 mg PO BEDTIME aspirin 81 mg PO DAILY atorvastatin 80 mg PO BEDTIME cholecalciferol (vitamin D3) (Vitamin D3) 50 mcg PO DAILY diphenhydramine-acetaminophen 25-500 mg (Tylenol PM Extra Strength) 2 tabs PO BEDTIME ferrous sulfate 324 mg PO Q OTHER DAY metoprolol succinate ER 25 mg PO DAILY multivitamin 1 tab PO DAILY tramadol 50 mg PO Q8H PRN PFSH Medical History (Updated 03/21/24 @ 09:22 by Parvin Lorenz [employer]IN[employer]ING [employer]ACER-C) Elevated cholesterol Dilatation of aorta History of transesophageal echocardiography (EVAN) Myxoma of heart CAD (coronary artery disease) HTN (hypertension) Surgical History (Updated 04/12/24 @ 10:39 by Megan Ferreira RN) Hx of hemorrhoidectomy History of excision of pilonidal cyst H/O colonoscopy S/P CABG x 1 Stented coronary artery Social History Are you a primary care coordinator to a significant other at home: No Do you presently have visiting nurse or other home services: No Alcohol intake: current Alcohol intake frequency: a few times a month Alcohol type: beer Patient Tobacco Use Status: Never used Tobacco Advance Directives Date on File: 05/29/21 service: Yes Current occupational status: employed Physical Exam Vital Signs: BMI result Body Mass Index 28.6 Extrem Other: Left shoulder examination shows that the surgical incisions are healing well, no erythema, almost full range of motion when compared to his right shoulder, no instability Assessment & Plan Assessment & Plan (1) Left shoulder pain: Code(s): M25.512 - Pain in left shoulder Category: Medical Plan Mr. Ta is doing very well after undergoing left shoulder arthroscopic surgery on 04/21/2024. His sutures were removed and Steri-Strips placed over his incisions. He will continue with his home stretching program. The do's and don'ts of lifting were discussed at length with the patient. Will contact me prior to his follow-up appointment in 6 weeks should any questions or concerns arise. Feel free to call me at any time should questions regarding his orthopedic management arise. Coding Level of Care Code Global (29116) Diagnoses Left shoulder pain M25.512
--- OUTSIDE RECORDS SUMMARY | 2024-05-04 12:48 | XMS_ITS | Clinical Summary ---
Author Organization [facility] Address [address] [place] [phone] Phone Care Team Providers Care Folder Operator Name Role Phone Seun Lamb Primary Care Provid er Allergies Active Allergy Reactions Criticality Noted Date Comments Allergenic Eynqgbj-Tnbr-Qiuprj 08/08 Medications Medication Sig Dispensed Refills Start Date End Date Status amiodarone (PACERONE) 200 MG tablet Take 200 mg by mouth 2 (two) times a day. 08/08/2021 Active ticagrelor (BRILINTA) 90 mg Tab Take 90 mg by mouth 2 (two) times a day (once in the morning and once in the afternoon). 08/08/2021 Active traMADoL (ULTRAM) 50 mg tablet Take 50 mg by mouth every 8 (eight) hours as needed for pain (specific location in comments). 08/08/2021 Active metoprolol succinate (TOPROL XL) 50 MG 24 hr tablet Take 25 mg by mouth daily. PT TAKING 25MG QD , NAME ON BOTTLE MICHELL TELLEZ EMAIL ADMINISTRATOR WAS 50MG ON MED LIST 08/08/2021 Active ascorbic acid, vitamin C, (VITAMIN C) 1000 MG tablet Take 1,000 mg by mouth daily. 08/08/2021 Active aspirin 81 MG EC tablet Take 81 mg by mouth daily. 08/08/2021 Active atorvastatin (LIPITOR) 80 MG tablet Take 80 mg by mouth daily. at bedtime 08/08/2021 Active cholecalciferol, vitamin D3, 25 mcg (1,000 unit) capsule Take 1,000 Units by mouth daily. 08/08/2021 Active multivitamins capsule Take 1 capsule by mouth daily. 08/08/2021 Active furosemide (LASIX) 40 MG tablet Take 40 mg by mouth daily. LASIX ON HOLD 08/14/21 R/T RAPID WT LOSS ORTHOSTATIC HYPOTENSION 08/08/2021 08/13/2021 Discontinued (No longer taking) Social History Tobacco Use Types Packs/Day Years Used Date Smoking Tobacco: Never Assessed Education Answer Date Recorded Are you interested in more education? Not on damaso e 06/20/2022 Are you concerned about learning? Not on file 06/20/2022 No 06/20/2022 No 06/20/2022 Digital Access Answer Date Recorded No 07/21/2022 No 07/21/2022 Reliable internet access at home? Not on file 07/21/2022 Device with a working camera? Not on file Sex and Gender Information Value Date Recorded Sex Assigned at Not on file Gender Identity Not on file Sexual Orientation Not on file Last Filed Vital Signs Vital Sign Reading Time Taken Comments Blood Pressure 128/82 08/28/2021 1:59 PM EDT Pulse 64 08/28/2021 1:59 PM EDT Temperature 36.5 ??C (97.7 ??F) 08/28/2021 1:59 PM ED T Respiratory Rate 18 08/28/2021 1:59 PM EDT Oxygen Saturation 99% 08/28/2021 1:59 PM EDT Inhaled Oxygen Concentration - - Weight 79.9 kg (176 lb 2 oz) 08/28/2021 1:59 PM EDT Height 177.8 cm (5' 10 ) 08/08/2021 1:45 PM EDT Body Mass Index 25.27 08/08/2021 1:45 PM EDT Plan of Treatment Health Maintenance Due Date Last Done Comments ALT LEVEL (ALANINE AMINOTRANSFERASE) 1957 LIPID PANEL 1957 TSH LEVEL 1957 DEPRESSION SCREENING 1969 SMOKING Hx and SMOKELESS TOBACCO SCREENING 1970 HEPATITIS B SCREENING 10/06/1975 HEPATITIS C SCREENING 10/06/1975 SCREENING FOR DIABETES 1992 COLOGUARD 2002 COLONOSCOPY 2002 COLORECTAL CANCER SCREENING 2002 FIT TEST 2002 FOBT 2002 SIGMOIDOSCOPY 2002 VIRTUAL COLONOSCOPY 2002 PNEUMOCOCCAL VACCINES (50+ years) (1 of 1 - PCV) 10/06/2007 INFLUENZA VACCINE (#1) 2023 , 01/09/2020, 11/23/2019, Additional history exists COVID-19 VACCINE ( season) 2023 01/18/2021, 05/21/2020, 04/30/2020 Adult Td,Tdap Booster 03/11/2028 03/11/2018, 006 RSV VACCINE (1 - 1-dose 75+ series) 2032 ZOSTER VACCINES Completed 09/27/2020, 07/26/2020 HEPATITIS A VACCINES Aged Out No long er eligible based on patient's age to complete this topic HEPATITIS B VACCINES Aged Out No long er eligible based on patient's age to complete this topic HIB VACCINES Aged Out No longer eligi ble based on patient's age to complete this topic MENINGOCOCCAL VACCINES (ACWY) Aged Out No longer eligible based on patient's age to complete this topic Medical Devices Not on file Care Teams Folder Operator Relationship Specialty Start Date End Date Seun Lamb PA PCP - General 08/07/21 Additional Source Comments The information contained in this document represents components of the legal health record. It is not the complete legal health record.[facility]
--- OUTSIDE RECORDS SUMMARY | 2024-05-04 12:48 | XMS_ITS | Patient Health Record ---
Author Organization [facility] Address [address] [place] [address] Care Team Providers Care Time Study Observer Name Role Phone Seun Cormier Primary Care Provider Un available Trevor Myers [phone] Allergies No Known Allergies Reason For Referral No Information Medications Medication SIG (Take, Route, Frequency, Duration) Notes [...] Nitroglycerin 0.4 MG as directed Sublingual Active Immunizations Vaccine Route Administration Date Status Comme nts Influenza Unknown 12/23/2020 Administered Influenza Unknown 01/13/2022 Administered Problems Problem Type SNOMED Code ICD Code Onset Dates Problem Status W/U Status Risk Notes Problem 36701673 Rectal bleeding (K62.5) Active confirmed Problem 621799401 Encounter for screening for malignant neoplasm of colon (Z12.11) Active confirmed Problem Diverticular disease of colon (961751041) Diverticulosis of large intestine without perforation or abscess without bleeding (K57.30) Active confirmed Problem Screening for malignant neoplasm of rectum (405817446) Encounter for screening for malignant neoplasm of rectum (Z12.12) Active confirmed Problem 740573303 Preprocedural examination (Z01.818) Active confirmed Problem Abnormal feces (025840383) Heme + stool (R19.5) Active confirmed Problem Bleeding per rectum (79050138) Bleeding per rectum (K62.5) Active confirmed Plan Of Treatment Future Test Test Name Order Date COLONOSCOPY 07/10/2021 COLONOSCOPY 09/23/2022 Insurance Providers Payer Name Payer Address Payer Phone Subscriber Number Group Number Insured Name Patient Relationship to Insured Coverage Start Date Coverage End Date [facility] [employer] [address] [place] [address] [id number] ROBSON JACKSON Self - patient is the insured Medical (General) History Medical History History ICD Code Denies MT,DM,CVA,Lung disease,renal dise ase Colonoscopy with Dr. Deep ramirez at [facility] at age approximately 52--this was reportedly negative according to the patient Coronary artery disease--tiffaine nt placed in 05/2021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
--- OUTSIDE RECORDS SUMMARY | 2024-05-04 12:48 | XMS_ITS ---
Author Organization [facility] Address [address] [place] [address] Care Team Providers Care Corporate Tax Preparer Name Role Phone Seun Cormier Primary Care Provider Un available Trevor Myers Unavailable [phone] REASON FOR VISIT Rectal bleeding,heme + stool Problems Problem Type SNOMED Code ICD Code Onset Dates Problem Status W/U Status Risk Notes Problem Diverticular disease of colon (612003260) Diverticulosis of large intestine without perforation or abscess without bleeding (K57.30) Active confirmed Encounters Encounter Location Date Provider Diagnosis [facility] [address] [place] [address] [phone] 12/23/2022 Trevor Myers Diverticulosis of large intestine without perforation or abscess without bleeding K57.30 ; Other hemorrhoids K64.8 ; GI bleed K92.2 and Heme + stool R19.5 Assessments Encounter Date Diagnosis (ICD Code) Assessment Notes Treatment Notes Treatment Clinical Notes Section Notes 12/23/2022 Diverticulosis of large intestine without perforation or abscess without bleeding (ICD-10 - K57.30) 12/23/2022 Other hemorrhoids (ICD-10 - K64.8) 12/23/2022 GI bleed (ICD-10 - K92.2) 12/23/2022 Heme + stool (ICD-10 - R19.5) Plan Of Treatment No Information Progress Notes * RODNEY JACKSONOB:[birth year] (68 yo M)Acc No.[id number]:12/23/2022 COLON WITH MAC Patient:?ROBSON JACKSON Provider:?Trevor Myers MD :[id number]???Age:67 Y???Sex:Male Darci e:12/23/2022 Address:[address] [place] [address] Pcp:Galo Mendez Subjective: * Chief Complaints: * ???1. Rectal bleeding,heme + stool. * Medical History:? Objective: * Vitals:? Assessment: * Assessment: 1.?Diverticulosis of large i ntestine without perforation or abscess without bleeding - K57.30 (Primary)???2.?Other hemorrhoids - K64.8???3.?GI bleed - K92.2???4.?Heme + stool - R19.5??? Plan: * Treatment: * Procedure Codes:?90115 DIAGN OSTIC COLONOSCOPY * * The named appointment provid er may or may not be the originator of this progress note, and it is not deemed complete until electronically signed by the appointment provider. Sign off status: Pending * Provider:?rTevor Myers MD Date:? 023 Generated for Isaias king/Farhan/Zaksmitting on:?05/04/2024 12:48 PM EDT
== END 2024-05-04 11:05 | disposition home or self-care (01) ==
LOC: HO.HOS 10:19
PROVIDERS: PCP Physician Assistant; Referring Provider Orthopaedic Surgery; Visit Provider Orthopaedic Surgery
DX: M25.512 Pain in left shoulder (principal)
CPT/HCPCS: 99024

== ENCOUNTER → 2024-05-04 10:18 | Outpatient (BNVA) | payer OTHER, SELFPAY ==
[2024-03-14 11:08] VITALS: BP 128/68; BP 136/74; BMI 27.2
== END ==
PROVIDERS: PCP Physician Assistant; Visit Provider Orthopaedic Surgery
DX: M25.512 Pain in left shoulder (principal)
CPT/HCPCS: 99212

== ENCOUNTER 2024-05-31 08:11 | Outpatient (AMB) | payer OTHER, SELFPAY ==
[2024-03-14 11:08] VITALS: BP 128/68; BP 136/74; BMI 27.2
--- NOTE | 2024-05-31 08:13 | A.OFFVIS_ITS ---
Vital Signs 05/31/24 08:19 Height 5 ft 9 in Weight 194 lb BMI 28.6 Handedness Right Intake Visit Reasons: PO LT shoulder 04/21/24 DR Intake Note: Raymond is a 68 year old right hand dominant male who presents post-operatively after undergoing left shoulder arthroscopic surgery on 04/21/2024. Patient is doing well. He continues with his home stretching program. He does take oxycodone intermittently to help him sleep. Allergies No Known Allergies Allergy (Verified 05/31/24 08:18) Medication List - Last Reconciled 05/31/24 by Wilber Mendoza MD amlodipine 10 mg PO BEDTIME aspirin 81 mg PO DAILY atorvastatin 80 mg PO BEDTIME cholecalciferol (vitamin D3) (Vitamin D3) 50 mcg PO DAILY diphenhydramine-acetaminophen 25-500 mg (Tylenol PM Extra Strength) 2 tabs PO BEDTIME ferrous sulfate 324 mg PO Q OTHER DAY metoprolol succinate ER 25 mg PO DAILY multivitamin 1 tab PO DAILY tramadol 50 mg PO Q8H PRN PFSH Medical History (Updated 03/21/24 @ 09:22 by Parvin Lorenz DRIVER SALES-C) Elevated cholesterol Dilatation of aorta History of transesophageal echocardiography (EVAN) Myxoma of heart CAD (coronary artery disease) HTN (hypertension) Surgical History (Updated 04/12/24 @ 10:39 by Megan Ferreira RN) Hx of hemorrhoidectomy History of excision of pilonidal cyst H/O colonoscopy S/P CABG x 1 Stented coronary artery Social History (Updated 05/31/24 @ 08:19 by Zohra Duran) Are you a primary associate director career services to a significant other at home: No Do you presently have visiting nurse or other home services: No Alcohol intake: current Alcohol intake frequency: a few times a month Alcohol type: beer Patient Tobacco Use Status: Never used Tobacco Advance Directives Date on File: 05/29/21 service: Yes Current occupational status: employed Current occupation: right hand dominant Physical Exam Vital Signs: BMI result Body Mass Index 28.6 Extrem Other: Left shoulder examination shows that the surgical incisions are well healed, no erythema, almost full range motion when compared to his right shoulder, minimal discomfort with resisted forward flexion, 5/5 strength with supraspinatus testing, no instability Assessment & Plan Assessment & Plan (1) Left shoulder pain: Code(s): M25.512 - Pain in left shoulder Category: Medical Plan Mr. Ta continues to do very well after undergoing left shoulder arthro scopic surgery on 04/21/2024. He will continue with his home stretching program. The do's and don'ts of lifting were discussed at length with the patient. He will contact me prior to his follow-up appointment in 3 months should any questions or concerns arise. Feel free to call me at any time should questions regarding his orthopedic management arise. Medications: New oxycodone Partial Fill upon patient request. 5 mg PO Q12H PRN 30 tabs 0RF pain Coding Level of Care Code Global (38085) Diagnoses Left shoulder pain M25.512
--- OUTSIDE RECORDS SUMMARY | 2024-05-31 08:17 | XMS_ITS | Clinical Summary ---
Author Organization [facility] Address [address] [place] [address] Phone Care Team Providers Care Dry Mixer Name Role Phone Seun Lamb Primary Care Provid er Allergies Active Allergy Reactions Criticality Noted Date Comments Allergenic Yuuilky-Xxlx-Gwmwas 08/08 Medications Medication Sig Dispensed Refills Start [...] QD , NAME ON BOTTLE MICHELL TELLEZ WAREHOUSE FREIGHT HANDLER WAS 50MG ON MED LIST 08/08/2021 Active [...] Medical Devices Not on file Care Teams Dry Mixer Relationship Specialty Start Date End Date Seun Lamb PA PCP - General 08/07/21 Additional Source Comments The information contained in this document represents components of the legal health record. It is not the complete legal health record.[facility]
--- OUTSIDE RECORDS SUMMARY | 2024-05-31 08:17 | XMS_ITS | Patient Health Record ---
Author Organization [facility] Address [address] [place] [address] Care Team Providers Care Press Operator Automatic Name Role Phone Seun Cormier Primary Care Provider Un available Trevor Myers [phone] Allergies No Known Allergies Reason For Referral [...] Problem Status W/U Status Risk Notes Problem 83402525 Rectal bleeding (K62.5) Active confirmed Problem 851220572 Encounter for screening for malignant neoplasm of colon (Z12.11) Active confirmed Problem Diverticular disease of colon (745174702) Diverticulosis of large intestine without perforation or abscess without bleeding (K57.30) Active confirmed Problem Screening for malignant neoplasm of rectum (335557731) Encounter for screening for malignant neoplasm of rectum (Z12.12) Active confirmed Problem 201681784 Preprocedural examination (Z01.818) Active confirmed Problem Abnormal feces (517626093) Heme + stool (R19.5) Active confirmed Problem Bleeding per rectum (92290295) Bleeding per rectum (K62.5) Active confirmed Plan Of Treatment Future Test Test Name Order Date COLONOSCOPY 07/10/2021 COLONOSCOPY 09/23/2022 Insurance Providers Payer Name Payer Address Payer Phone Subscriber Number Group Number Insured Name Patient Relationship to Insured Coverage Start Date Coverage End Date [facility] [employer] [address] [place] [address] [id number] ROBSON JACKSON Self - patient is the insured Medical (General) History Medical History History ICD Code Denies [place],DM,CVA,Lung disease,renal dise ase Colonoscopy with Dr. Deep ramirez at [facility] at age approximately 52--this was reportedly negative according to the patient Coronary artery disease--tiffanie nt placed in 05[facility]2021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
--- OUTSIDE RECORDS SUMMARY | 2024-05-31 08:18 | XMS_ITS ---
Author Organization [facility] Address [address] [place] [address] Care Team Providers Care Shop Repairer Name Role Phone Seun Cormier Primary Care Provider Un available Trevor Myers Unavailable [phone] REASON FOR VISIT Rectal bleeding,heme + stool Problems Problem Type SNOMED Code ICD Code Onset Dates Problem Status W/U Status Risk Notes Problem Diverticular disease of colon (427541232) Diverticulosis of large intestine without perforation or abscess without bleeding (K57.30) Active confirmed Encounters Encounter Location Date Provider Diagnosis [facility] [address] [place] [address] [phone] 12/23/2022 Trevor Myers Diverticulosis of large intestine [...] Notes * RODNEY JACKSONOB:[birth year] (68 yo M)Acc No.[id number]:12/23/2022 COLON WITH MAC Patient:?ROBSON JACKSON Provider:?Trevor Myers MD :1955???Age:67 Y???Sex:Male Darci e:12/23/2022 Address:[address] [place] [address] Pcp:Galo Mendez Subjective: * Chief Complaints: * ???1. Rectal bleeding,heme + stool. * Medical History:? Objective: * Vitals:? Assessment: * Assessment: 1.?Diverticulosis of large i ntestine without perforation or abscess without bleeding - K57.30 (Primary)???2.?Other hemorrhoids - K64.8???3.?GI bleed - K92.2???4.?Heme + stool - R19.5??? Plan: * Treatment: * Procedure Codes:?34093 DIAGN OSTIC COLONOSCOPY * * The named appointment provid er may or may not be the originator of this progress note, and it is not deemed complete until electronically signed by the appointment provider. Sign off status: Pending * Provider:?Trevor Myers MD Date:? 023 Generated for Isaias king/Farhan/Zaksmitting on:?05/31/2024 08:17 AM EDT
[2024-05-31 08:19] VITALS: BMI 28.6
== END 2024-05-31 08:36 | disposition home or self-care (01) ==
LOC: HO.HOS 08:12
PROVIDERS: PCP Physician Assistant; Visit Provider Orthopaedic Surgery
DX: M25.512 Pain in left shoulder (principal)
CPT/HCPCS: 99024

== ENCOUNTER → 2024-05-31 08:11 | Outpatient (BNVA) | payer OTHER, SELFPAY ==
[2024-03-14 11:08] VITALS: BP 128/68; BP 136/74; BMI 27.2
== END ==
PROVIDERS: PCP Physician Assistant; Visit Provider Orthopaedic Surgery
DX: Z47.89 Encounter for other orthopedic aftercare (principal); M25.512 Pain in left shoulder; Z98.890 Other specified postprocedural states
CPT/HCPCS: 99212

== ENCOUNTER 2024-09-13 07:28 | Outpatient (AMB) | payer OTHER, SELFPAY ==
[2024-03-14 11:08] VITALS: BP 128/68; BP 136/74; BMI 27.2
--- OUTSIDE RECORDS SUMMARY | 2024-09-13 07:30 | XMS_ITS | Patient Health Record ---
Author Organization [facility] Address [address] [place] [address] Care Team Providers Care Machinist Brake Name Role Phone Seun Cormier Primary Care Provider Un available Trevor Myers [phone] Allergies No Known Allergies Reason For Referral [...] Problem Status W/U Status Risk Notes Problem 14228923 Rectal bleeding (K62.5) Active confirmed Problem 368335377 Encounter for screening for malignant neoplasm of colon (Z12.11) Active confirmed Problem Diverticular disease of colon (543700725) Diverticulosis of large intestine without perforation or abscess without bleeding (K57.30) Active confirmed Problem Screening for malignant neoplasm of rectum (431707569) Encounter for screening for malignant neoplasm of rectum (Z12.12) Active confirmed Problem 167056133 Preprocedural examination (Z01.818) Active confirmed Problem Abnormal feces (295083142) Heme + stool (R19.5) Active confirmed Problem Bleeding per rectum (55733999) Bleeding per rectum (K62.5) Active confirmed Plan Of Treatment Future Test Test Name Order Date COLONOSCOPY 07/10/2021 COLONOSCOPY 09/23/2022 Insurance Providers Payer Name Payer Address Payer Phone Subscriber Number Group Number Insured Name Patient Relationship to Insured Coverage Start Date Coverage End Date [facility] [employer] [address] [place] [address] [id number] ROBSON JACKSON Self - patient is the insured Medical (General) History Medical History History ICD Code Denies [place],DM,CVA,Lung disease,renal dise ase Colonoscopy with Dr. Deep ramirez at [facility] at age approximately 52--this was reportedly negative according to the patient Coronary artery disease--tiffanie nt [facility]2021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
--- NOTE | 2024-09-13 07:53 | A.OFFVIS_ITS ---
Vital Signs 09/13/24 07:54 Height 5 ft 9 in Weight 194 lb BMI 28.6 Intake Visit Reasons: OV- LT shoulder 04/21/24 DR Intake Note: Raymond is a 68 year old right hand dominant male who presents for follow up after undergoing left shoulder arthroscopic surgery on 04/21/2024. He reports minimal intermittent discomfort in his left shoulder. He continues with his exercise program. He denies any fevers or chills. He does not take any medicines for his discomfort. Allergies No Known Allergies Allergy (Verified 09/13/24 07:54) Medication List - Last Reconciled 09/13/24 by Wilber Mendoza MD amlodipine 10 mg PO BEDTIME aspirin 81 mg PO DAILY atorvastatin 80 mg PO BEDTIME cholecalciferol (vitamin D3) (Vitamin D3) 50 mcg PO DAILY diphenhydramine-acetaminophen 25-500 mg (Tylenol PM Extra Strength) 2 tabs PO BEDTIME ferrous sulfate 324 mg PO Q OTHER DAY metoprolol succinate ER 25 mg PO DAILY multivitamin 1 tab PO DAILY oxycodone 5 mg PO Q12H PRN tramadol 50 mg PO Q8H PRN PFSH Medical History (Updated 03/21/24 @ 09:22 by Parvin Lorenz DRYING FRAME OPERATOR-C) Elevated cholesterol Dilatation of aorta History of transesophageal echocardiography (EVAN) Myxoma of heart CAD (coronary artery disease) HTN (hypertension) Surgical History (Updated 04/12/24 @ 10:39 by Megan Ferreira RN) Hx of hemorrhoidectomy History of excision of pilonidal cyst H/O colonoscopy S/P CABG x 1 Stented coronary artery Social History Are you a primary day care assistant to a significant other at home: No Do you presently have visiting nurse or other home services: No Alcohol intake: current Alcohol intake frequency: a few times a month Alcohol type: beer Patient Tobacco Use Status: Never used Tobacco Advance Directives Date on File: 05/29/21 service: Yes Current occupational status: employed Current occupation: right hand dominant Physical Exam Vital Signs: BMI result Body Mass Index 28.6 Const Other: Well-nourished well-developed very friendly male awake alert and oriented x3 in no acute distress Extrem Other: Bilateral upper extremity examination shows good capillary refill, no skin lesions noted, normal sensation light touch Left shoulder examination shows that the surgical incisions are well healed, no erythema, full range motion when compared to his right shoulder, 5/5 strength with supraspinatus testing, no instability Assessment & Plan Assessment & Plan (1) Left shoulder pain: Code(s): M25.512 - Pain in left shoulder Category: Medical Plan Mr. Ta continues to do well after undergoing left shoulder arthroscopic surgery on 04/21/2024. He will continue with his home exercise program. The do's and don'ts of lifting were discussed at length with the patient. He will follow up with me on an as-needed basis should any questions or concerns arise. Feel free to call me at any time should questions regarding his orthopedic management arise. I spent 21 minutes in reviewing the patient's records and imaging studies, seeing the patient and documenting in the medical record. Coding Level of Care Code Est Pt Level 3 (24520) Complex EM visit Add On G2211 Diagnoses Left shoulder pain M25.512
[2024-09-13 07:54] VITALS: BMI 28.6
== END 2024-09-13 08:05 | disposition home or self-care (01) ==
LOC: HO.HOS 07:28
PROVIDERS: PCP Physician Assistant; Visit Provider Orthopaedic Surgery
DX: M25.512 Pain in left shoulder (principal)
CPT/HCPCS: 99213; G2211

== ENCOUNTER → 2024-11-07 14:37 | Outpatient (REF) | payer OTHER, SELFPAY ==
[2024-03-14 11:08] VITALS: BP 128/68; BP 136/74; BMI 27.2
--- NOTE | 2024-11-07 14:45 | CA_ITS ---
Transthoracic Echocardiogram Patient (Last, First, Middle): Raymond Ta, Gender: Male Date of : 1955 Age: 69 Procedure Date: 11/07/2024 Procedure Type: Transthoracic Echocardiogram Location: OP Height: 175.26 cm Weight: 83.92 kg BSA: 2.00 m2 Heart Rate: 54 bpm BP: 128 / 75 mmHg Chemical Production Technician: JERRY Referring MD: Addy Masterson MD Symptoms: I71.20 - Thoracic aortic aneurysm, without rupture, unspecified Study Quality: Adequate ECG Rhythm: Sinus Conclusions: - The left ventricular systolic function is normal. The calculated ejection fraction is 62% by biplane method. - Moderately increased right ventricular cavity size. - No obvious valvular pathology seen on this study. - There is mild dilatation of the ascending aorta measuring 3.90 cm and mild dilatation of the aortic arch measuring 4.20 cm. Findings Left Ventricle Mildly increased left ventricular cavity size. There is normal left ventricular wall thickness. The left ventricular systolic function is normal. The calculated ejection fraction is 62% by biplane method. There is no evidence of regional wall motion abnormalities. Diastolic function is normal for age. Right Ventricle Moderately increased right ventricular cavity size. There is normal right ventricular systolic function. Atria Both atria are normal in size. Aortic Valve There is a normal trileaflet aortic valve. There is no aortic valve stenosis. There is no aortic valve regurgitation. Mitral Valve The mitral valve appears normal. There is no mitral valve regurgitation. There is no mitral valve stenosis. Pulmonic Valve The pulmonic valve is likely normal. Tricuspid Valve Normal tricuspid valve structure. There is no tricuspid valve regurgitation. There is no evidence of pulmonary hypertension. Great Vessels There is mild dilatation of the ascending aorta measuring 3.90 cm and mild dilatation of the aortic arch measuring 4.20 cm. Venous The inferior vena cava is normal in size and collapses greater than 50% with inspiration. Pericardium/Pleural There is no evidence of pericardial effusion. Prior Study Comparison Changes noted compared to prior study dated: 11/15/2023. Increase in right ventricular size, can also be technical. Recommendations, Care & Conclusions No obvious valvular pathology seen on this study. Measurements 2D Linear Measurements IVSd: 0.85 0.6-0.9/0.6-1.0 cm LVIDd: 5.00 3.9-5.3/4.2-5.9 cm LVIDd Index: 2.50 2.4-3.2/2.2-3.1 cm/m2 LVIDs: 2.97 2.0-3.6 cm LVPWd: 1.00 0.7-1.1 cm LA Diam: 4.20 2.7-3.8/3.0-4.0 cm LAIDs Index: 2.10 1.5-2.3 cm/m2 LV Mass: 204.13 67-162/88-224 g LV Mass Index: 102.06 43-95/49-115 g/m2 LVOT Diam: 2.10 3.0+(-)1.3 cm 2D Systolic Function EF 4C: 63.00 >55% EF 2C: 63.60 >55% EF BiP: 61.80 >55% Mitral Valve MV Pk E: 0.61 MV PK A: 0.79 MV Decel Time: 340.00 E/A: 0.80 E'Lateral: 13.70 E'Medial: 6.85 E/E' Med: 8.90 E/E' Lat: 4.40 PHT: 100.00 MVA PHT: 2.20 Decel Mcintosh: 1.79 Aortic Valve AoV Pk Christophe: 1.36 AoV Mn Christophe: 0.95 AoV VTI: 0.29 AoV Pk Grad: 7.00 Aov Mn Grad: 4.00 BENNY Cont.VTI: 2.87 LVOT LVOT Pk Christophe: 1.33 LVOT Mn Christophe: 0.74 LVOT VTI: 0.24 LVOT Pk Grad: 7.00 LVOT Mn Grad: 3.00 LVOT Diam: 2.10 LVOT Area: 3.46 Diastolic Function MV Pk E: 0.61 MV Pk A: 0.79 E/A: 0.80 E'Medial: 6.85 E/E' Med: 8.90 E' Laterial: 13.70 E/E' Lat: 4.40 Right Ventricle TAPSE (mm): 17.50 TVS' Christophe: 11.50 Tricuspid Valve TR Pk Christophe: 1.58 TR Pk Grad: 10.00 RA Press: 3.00 RVSP: 13.00 Great Vessels Aorta Sinus of Valsalva: 3.40 2.0-3.5 cm Ao Asc: 3.90 2.1-3.4 cm Ao Arch: 4.20 Pulmonary Veins Pulm Vein S/D 1.60 Pulmonary Valve PV Pk Christophe: 0.94 Peak PV Grad: 4.00 Updated in Other Vendor System with Status of Final Dinesh Anaya MD electronically signed on 11/08/2024 2:49:23 PM with status of Final
--- OUTSIDE RECORDS SUMMARY | 2024-11-07 18:18 | XMS_ITS | Clinical Summary ---
Author Organization [facility] Address [address] [place] [address] Phone Care Team Providers Care Kiln Repairer Name Role Phone Seun Lamb Primary Care Provid er Allergies Active Allergy Reactions Criticality Noted Date Comments Allergenic Bmvzlbu-Otet-Unqzzb 08/08 Medications amiodarone (PACERONE) 200 MG tablet Take 200 mg by mouth 2 (two) times a day. 2 Active ticagrelor (BRILINTA) 90 mg Tab Take 90 mg by mouth 2 (two) times a day (once in the morning and once in the afternoon). 2 Active traMADoL (ULTRAM) 50 mg tablet Take 50 mg by mouth every 8 (eight) hours as needed for pain (specific location in comments). 2 Active metoprolol succinate (TOPROL XL) 50 MG 24 hr tablet Take 25 mg by mouth daily. PT TAKING 25MG QD , NAME ON BOTTLE MICHELL TELLEZ FIELD INVESTIGATOR WAS 50MG ON MED LIST 2 Active ascorbic acid, vitamin C, (VITAMIN C) 1000 MG tablet Take 1,000 mg by mouth daily. 2 Active aspirin 81 MG EC tablet Take 81 mg by mouth daily. 2 Active atorvastatin (LIPITOR) 80 MG tablet Take 80 mg by mouth daily. at bedtime 2 Active cholecalcifero l, vitamin D3, 25 mcg (1,000 unit) capsule Take 1,000 Units by mouth daily. 2 Active multivitamins capsule Take 1 capsule by mouth daily. 2 Active furosemide (LASIX) 40 MG tablet Take 40 mg by mouth daily. LASIX ON HOLD 08/14/21 R/T RAPID WT LOSS ORTHOSTATIC HYPOTENSION 2 08/14/19 22 Discontin ued(No longer taking) Social History Tobacco Use Types [...] Recorded Sex Assigned at Not on file Legal Sex Male 9:11 AM EDT Gender Identity Not on file Sexual Orientation Not on file Last Filed Vital Signs Vital Sign Reading Time Taken Comments Blood Pressure 128/82 08/28/2021 1:59 PM EDT Pulse 64 08/28/2021 1:59 PM EDT Temperature 36.5 C (97.7 F) 08/28/2021 1:59 PM EDT Respiratory Rate 18 08/28/2021 1:59 PM EDT [...] Hx and SMOKELESS TOBACCO SCREENING 1970 HEPATITIS C SCREENING 10/06/1975 COLOGUARD 2002 COLONOSCOPY 2002 COLORECTAL CANCER SCREENING 2002 FIT TEST 2002 FOBT 2002 SIGMOIDOSCOPY 2002 VIRTUAL COLONOSCOPY 2002 PNEUMOCOCCAL VACCINES (50+ years) (1 of 1 - PCV) 10/06/2007 COVID-19 VACCINE (4 - 2023-2 5 season) 2023 01/18/2021, 05/21/2020, 04/30/2020 Adult Td,Tdap Booster 03/11/2028 03/11/2018 , 11/05/2005 RSV VACCINE (1 - 1-dose 75+ series) [...] age to complete this topic MENINGOCOCCAL VACCINES (B) Aged Out N o longer eligible based on patient's age to complete this topic Medical Devices Not on file Insurance [facility] Care Teams Kiln Repairer Relationship Specialty Start Date End Date Seun Lamb PA PCP - General 08/07/21 Additional Source Comments The information contained in this document represents components of the legal health record. It is not the complete legal health record.[facility]
--- OUTSIDE RECORDS SUMMARY | 2024-11-07 18:18 | XMS_ITS | Patient Health Record ---
Author Organization [facility] Address [address] [place] [address] Care Team Providers Care Flask Fitter Name Role Phone Seun Cormier Primary Care Provider Un available Trevor Myers [phone] Allergies No Known Allergies Reason For Referral [...] Problem Status W/U Status Risk Notes Problem 17477076 Rectal bleeding (K62.5) Active confirmed Problem 793242183 Encounter for screening for malignant neoplasm of colon (Z12.11) Active confirmed Problem Diverticular disease of colon (848421778) Diverticulosis of large intestine without perforation or abscess without bleeding (K57.30) Active confirmed Problem Screening for malignant neoplasm of rectum (045549942) Encounter for screening for malignant neoplasm of rectum (Z12.12) Active confirmed Problem 288895389 Preprocedural examination (Z01.818) Active confirmed Problem Abnormal feces (531514901) Heme + stool (R19.5) Active confirmed Problem Bleeding per rectum (31598865) Bleeding per rectum (K62.5) Active confirmed Plan Of Treatment Future Test Test Name Order Date COLONOSCOPY 07/10/2021 COLONOSCOPY 09/23/2022 Insurance Providers Payer Name Payer Address Payer Phone Subscriber Number Group Number Insured Name Patient Relationship to Insured Coverage Start Date Coverage End Date [facility] [employer] [address] [place] [address] [id number] ROBSON JACKSON Self - patient is the insured Medical (General) History Medical History History ICD Code Denies [place],DM,CVA,Lung disease,renal dise ase Colonoscopy with Dr. Deep ramirez at [facility] at age approximately 52--this was reportedly negative according to the patient Coronary artery disease--[facility]iffanie nt [facility]2021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
== END ==
LOC: HO.CARD 14:37
PROVIDERS: PCP Physician Assistant; Visit Provider Internal Medicine Cardiovascular Disease
DX: I71.20 Thoracic aortic aneurysm, without rupture, unspecified (principal)
CPT/HCPCS: 93306

== ENCOUNTER → 2024-11-07 14:45 | Outpatient (BNV) | payer OTHER, SELFPAY ==
[2024-03-14 11:08] VITALS: BP 128/68; BP 136/74; BMI 27.2
== END ==
PROVIDERS: PCP Physician Assistant; Visit Provider Internal Medicine
DX: I77.810 Thoracic aortic ectasia (principal)
CPT/HCPCS: 93306

== ENCOUNTER 2024-11-16 14:58 | Outpatient (AMB) | payer OTHER, SELFPAY ==
[2022-01-01 06:57] VITALS: BP 128/68; BP 136/74; BMI 27.2
[2024-03-14 11:08] VITALS: BP 128/68; BP 136/74; BMI 27.2
--- NOTE | 2024-11-16 15:00 | MHC.OFFVIS ---
Vital Signs 11/16/24 15:03 Height 5 ft 9 in Weight 196 lb 10.437 oz BMI 29.0 BP 130/72 Blood Pressure Location Lt brachial Position Sitting Pulse 57 Pulse Source Monitor Intake Visit Reasons: 1 yr f/up-echo Intake Note: 1 yr f/up-echo Physician Office Secretary Required: No Accompanied by: Self / Same As Patient Allergies No Known Allergies Allergy (Verified 09/13/24 07:54) Medication List - Last Reconciled 11/16/24 by Addy Masterson MD amlodipine 10 mg PO BEDTIME aspirin 81 mg PO DAILY atorvastatin 80 mg PO BEDTIME cholecalciferol (vitamin D3) (Vitamin D3) 50 mcg PO DAILY diphenhydramine-acetaminophen 25-500 mg (Tylenol PM Extra Strength) 2 tabs PO BEDTIME ferrous sulfate 324 mg PO Q OTHER DAY metoprolol succinate ER 25 mg PO DAILY HPI Comments Details: Raymond comes for follow-up. He has no exertional cardiac symptoms. Doing very well. He denies exertional chest pain or shortness of breath. No orthopnea, PND, leg edema. Blood pressure is generally well controlled now. Taking all his medications without any breaks. No prolonged palpitation irregular heartbeat. Recent echocardiogram shows stable LV ejection fraction stable ascending aortic aneurysm size. [facility] Medical History Elevated cholesterol Dilatation of aorta History of transesophageal echocardiography (EVAN) Myxoma of heart CAD (coronary artery disease) HTN (hypertension) Surgical History Hx of hemorrhoidectomy History of excision of pilonidal cyst H/O colonoscopy S/P CABG x 1 Stented coronary artery Social History Are you a primary critical care nurse practitioner to a significant other at home: No Do you presently have visiting nurse or other home services: No Alcohol intake: current Alcohol intake frequency: a few times a month Alcohol type: beer Patient Tobacco Use Status: Never used Tobacco Advance Directives Date on File: 05/29/21 service: Yes Current occupational status: employed Current occupation: right hand dominant Review of Systems Const Denies chills, Denies fatigue, Denies fever(s), Denies frequent falls, Denies weakness, Denies weight gain and Denies weight loss ENT Denies dizziness Card Denies chest pain, Denies leg edema, Denies lightheadedness, Denies palpitations, Denies dyspnea and Denies dyspnea on exertion Resp Denies cough, Denies dyspnea and Denies dyspnea on exertion GI Denies hematochezia Musc Denies abnormal gait, Denies muscle weakness, Denies numbness, Denies radiating pain into limb and Denies tingling Neuro Denies abnormal gait, Denies dizziness, Denies frequent falls, Denies numbness, Denies tingling and Denies weakness Endo Denies fatigue and Denies palpitations Physical Exam Vital Signs: Last Vital Signs Pulse 57 11/16/24 15:03 BP 130/72 11/16/24 15:03 BMI result Body Mass Index 29.0 Const General: cooperative, comfortable, no acute distress, alert, awake and Physically active Nutritional Appearance: average body habitus Orientation/consciousness: patient oriented x3 Neck Neck: Yes trachea midline, Yes supple and Yes no JVD Chest Chest palpation & inspection: other (Sternotomy wound has healed well with no discharge.) Resp Effort & Inspection: normal respiratory effort Auscultation: clear to auscultation bilaterally Cardio Jugular venous distension: no JVD Palpation: normal PMI Rate: regular rate Rhythm: regular rhythm Heart sounds: S1 normal heart sound present, S2 normal heart sound present, no click, no gallops and no murmurs Peripheral pulses: radial pulses present and ulnar radial pulses present GI Auscultation: normal bowel sounds Skin General skin exam: no rashes or lesions noted Neuro General: patient oriented x3 and no focal motor deficits Extrem General: Yes no clubbing, cyanosis or edema Office Procedures EKG Details: EKGs shows normal sinus rhythm with first-degree AV block with isolated Q-waves in lead 3 with poor R-wave progression could be lead placement otherwise no acute ST T wave changes [id number], Complete Assessment & Plan Assessment & Plan (1) CAD (coronary artery disease): Comment: follows w/[facility]. S/p CABGx1 2021. Some atypical left sided chest pain. Evaluated by cardiology. Has never needed SL NTG Code(s): I25.10 - Atherosclerotic heart disease of [place] coronary artery without angina pectoris Category: Medical Plan: CAD with prior RCA stent and then single-vessel coronary artery bypass grafting for left atrial myxoma removal. He has since then has done well. No symptoms of angina. Continue low-dose aspirin therapy for life. Continue aggressive risk factor modification. Continue high-intensity statin therapy. Advised lipid panel in near future. Continue current aggressive blood pressure control with current medications. Importance of good blood pressure control was discussed. Target goal blood pressure less than 130/84. Advised to monitor blood pressure at home maintain a log. Low-salt diet was discussed. (2) Thoracic aortic aneurysm: Code(s): I71.20 - Thoracic aortic aneurysm, without rupture, unspecified Category: Medical Plan: Mild thoracic aortic aneurysm which has remained stable. Follow-up echocardiogram in 1 year's time. Continue aggressive vascular risk factor modifications above with aggressive blood pressure control. Low-dose aspirin therapy for life. 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 Recent echocardiogram shows no recurrence. Follow up in the clinic in 1 year's time, sooner PRN. Thank you for allowing me to partake in his care Orders: Orders Lipid Panel Today I25.10 - Atherosclerotic heart disease of [place] coronary artery without angina pectoris CA echo transthoracic complete 1 Year I71.20 - Thoracic aortic aneurysm, without rupture, unspecified Coding Level of Care Code Est Pt Level 4 (60604) Complex EM visit Add On G2211 Diagnoses CAD (coronary artery disease) I25.10 Thoracic aortic aneurysm I71.20 Myxoma of heart D15.1 CPT Codes EKG - CPT: 86241-[id number], Complete ([id number])
[2024-11-16 15:03] VITALS: BP 130/72; PULSE 57; BMI 29.0
--- OUTSIDE RECORDS SUMMARY | 2024-11-16 19:19 | XMS_ITS | Patient Health Record ---
Author Organization [facility] Address [address] [place] [address] Care Team Providers Care Neuro Psych Sales Specialist Name Role Phone Seun Cormier Primary Care Provider Un available Trevor Myers [phone] Allergies No Known Allergies Reason For Referral [...] Problem Status W/U Status Risk Notes Problem [id number] Rectal bleeding (K62.5) Active confirmed Problem 840015884 Encounter for screening for malignant neoplasm of colon (Z12.11) Active confirmed Problem Diverticular disease of colon (473355544) Diverticulosis of large intestine without perforation or abscess without bleeding (K57.30) Active confirmed Problem Screening for malignant neoplasm of rectum (103494342) Encounter for screening for malignant neoplasm of rectum (Z12.12) Active confirmed Problem 946823301 Preprocedural examination (Z01.818) Active confirmed Problem Abnormal feces (100753975) Heme + stool (R19.5) Active confirmed Problem Bleeding per rectum (19609297) Bleeding per rectum (K62.5) Active confirmed Plan Of Treatment Future Test Test Name Order Date COLONOSCOPY 07/10/2021 COLONOSCOPY 09/23/2022 Insurance Providers Payer Name Payer Address Payer Phone Subscriber Number Group Number Insured Name Patient Relationship to Insured Coverage Start Date Coverage End Date [facility] [employer] [address] [place] [address] [id number] ROBSON JACKSON Self - patient is the insured Medical (General) History Medical History History ICD Code Denies GA,DM,CVA,Lung disease,renal dise ase Colonoscopy with Dr. Deep ramirez at [facility] at age approximately 52--this was reportedly negative according to the patient Coronary artery disease--tiffanie nt [facility]2021[facility] Hyperlipidemia Hypertension Negative colonoscopy in 07/2016 Benign cardiac tumor with surgery as bel ow Surgical History Surgery Date(Month/Year) Pilonidal cyst removal Hemorrhoids Open heart surgery for a marlys ign left atrial tumor and a single vessel bypass at [facility] 07/2021
== END 2024-11-16 15:28 | disposition home or self-care (01) ==
LOC: HO.HCS 14:59
PROVIDERS: PCP Physician Assistant; Visit Provider Internal Medicine Cardiovascular Disease
DX: I25.10 Atherosclerotic heart disease of native coronary artery without angina pectoris (principal); I71.20 Thoracic aortic aneurysm, without rupture, unspecified; D15.1 Benign neoplasm of heart
CPT/HCPCS: 93010; 99214; G2211

== ENCOUNTER → 2024-11-16 14:58 | Outpatient (BNVA) | payer OTHER, SELFPAY ==
[2024-03-14 11:08] VITALS: BP 128/68; BP 136/74; BMI 27.2
== END ==
PROVIDERS: PCP Physician Assistant; Visit Provider Internal Medicine Cardiovascular Disease
DX: I25.10 Atherosclerotic heart disease of native coronary artery without angina pectoris (principal); I71.20 Thoracic aortic aneurysm, without rupture, unspecified; D15.1 Benign neoplasm of heart
CPT/HCPCS: 93005; 99212

== ENCOUNTER 2024-11-17 06:37 | Outpatient (REF) | payer OTHER, SELFPAY ==
[2024-03-14 11:08] VITALS: BP 128/68; BP 136/74; BMI 27.2
--- OUTSIDE RECORDS SUMMARY | 2024-11-17 06:41 | XMS_ITS | Clinical Summary ---
Author Organization [facility] Address [address] [facility] [address] [place] [address] Phone Care Team Providers Care Dermatology Nurse Practitioner Name Role Phone Seun Lamb Primary Care Provid er Allergies Active Allergy Reactions Criticality Noted Date Comments Allergenic Vexnvwj-Whfg-Zyszpu 08/08 Medications amiodarone (PACERONE) 200 MG tablet [...] QD , NAME ON BOTTLE MICHELL TELLEZ QUALITY ENGINEER MEDICAL DEVICE WAS 50MG ON MED LIST 2 Active [...] topic Medical Devices Not on file Insurance [facility] Care Teams Dermatology Nurse Practitioner Relationship Specialty Start Date End Date Seun Lamb PA PCP - General 08/07/21 Additional Source Comments The information contained in this document represents components of the legal health record. It is not the complete legal health record.[facility]
--- OUTSIDE RECORDS SUMMARY | 2024-11-17 06:41 | XMS_ITS | Patient Health Record ---
Author Organization [facility] Address [address] [place] [address] Care Team Providers Care Gear Machine Operator Name Role Phone Seun Cormier Primary Care Provider Un available Trevor Myers [phone] Allergies No Known Allergies Reason For Referral [...] Problem Status W/U Status Risk Notes Problem 71676423 Rectal bleeding (K62.5) Active confirmed Problem 047892078 Encounter for screening for malignant neoplasm of colon (Z12.11) Active confirmed Problem Diverticular disease of colon (802294809) Diverticulosis of large intestine without perforation or abscess without bleeding (K57.30) Active confirmed Problem Screening for malignant neoplasm of rectum (147985913) Encounter for screening for malignant neoplasm of rectum (Z12.12) Active confirmed Problem 156558439 Preprocedural examination (Z01.818) Active confirmed Problem Abnormal feces (315679477) Heme + stool (R19.5) Active confirmed Problem Bleeding per rectum (41151290) Bleeding per rectum (K62.5) Active confirmed Plan Of Treatment Future Test Test Name Order Date COLONOSCOPY 07/10/2021 COLONOSCOPY 09/23/2022 Insurance Providers Payer Name Payer Address Payer Phone Subscriber Number Group Number Insured Name Patient Relationship to Insured Coverage Start Date Coverage End Date [facility] [employer] [address] [place] [address] [id number] ROBSON JACKSON Self - patient is the insured Medical (General) History Medical History History ICD Code Denies [place],DM,CVA,Lung disease,renal dise ase Colonoscopy with Dr. Deep ramirez at [facility] at age approximately 52--this was reportedly negative according to the patient Coronary artery disease--[facility]iffanie nt [facility]2021[facility] Hyperlipidemia Hypertension Negative colonoscopy in 07/2016 Benign cardiac tumor with surgery as bel ow Surgical History Surgery Date(Month/Year) Pilonidal cyst removal Hemorrhoids Open heart surgery for a marlys ign left atrial tumor and a single vessel bypass at [facility] 07/2021
[2024-11-17 08:21] LABS: Cholesterol 114 mg/dL (<200); HDL Cholesterol 38 mg/dL (>40); Triglycerides 69 mg/dL (<150)
== END 2024-11-17 06:38 | disposition home or self-care (01) ==
LOC: HO.LAB 06:37
PROVIDERS: PCP Physician Assistant; Visit Provider Internal Medicine Cardiovascular Disease
DX: I25.10 Atherosclerotic heart disease of native coronary artery without angina pectoris (principal)
CPT/HCPCS: 36415; 80061